=== PATIENT | male | born 1945 | race African-American/Black ===

== ENCOUNTER → 2017-02-06 | Outpatient (CLI) | payer BC ==
[2016-06-10 15:00] VITALS: BP 102/69
[~2017-02-06] MED LIST: AMIO200T PO; AMIO200T2 PO; ASPI-252 PO; ASPI81TA2 PO; ATORVASTATIN CA80 MG PO; Acetaminophen PO; CALC500T27 PO; CARV6.25 PO; CHOL2000 PO; CLOP75TA PO; FURO-69 PO; INSU100I27 SQ; LEVO500T38 PO; LITH300C PO; LITH300T3 PO; NAPR500T PO; NAPR500T3 PO; OMEG10005 PO; OMEP20CA9 PO; OMEP20TA PO; OXYC-323 PO; Oxycodone Hcl/Acetaminophen PO; POTA20TA12 PO; SIMV80TA3 PO; TAMS0.4C97 PO; TRAZ50TA15 PO
--- NOTE | 2017-02-06 15:28 | RAD ---
Exam: PA and lateral chest radiograph History: Shortness of air for 4-5 months. Comparison: 06/01/2016. Findings: Cardiomediastinal silhouette is within normal limits for size. Mild infiltrate is seen in the left lower lobe. No pleural effusion is seen. Median sternotomy wires are present. Impression: Mild left lower lobe infiltrate.
== END | disposition home or self-care (01) ==
LOC: RAD 12:32
PROVIDERS: ATTEND Internal Medicine Cardiovascular Disease
DX: R91.8 Other nonspecific abnormal finding of lung field (principal)
CPT/HCPCS: 71020

== ENCOUNTER → 2017-02-11 | Outpatient (CLI) | payer BC ==
[2016-06-10 15:00] VITALS: BP 102/69
== END | disposition home or self-care (01) ==
LOC: PF 09:55
PROVIDERS: ATTEND Internal Medicine Pulmonary Disease
DX: R06.02 Shortness of breath (principal)
CPT/HCPCS: 94060; 94729

== ENCOUNTER → 2017-03-28 | Day surgery (SDC) | payer BC ==
[~2017-03-28] MED LIST changes: +FLUT9.9S NS; +GLYCOPYRROLATE 1 MG/5 ML VIAL. ONE; +IV RINGERS,LACTATED 1000ML 1,000 ML IV SCH; +PHENYLEPHRINE in 0.9% NACL PF 1 MG/10 ML DISP.SYRIN. IV ONE; +PROPOFOL 20 ML IV ONE; +ePHEDrine PF IN SALINE 50 MG/5 ML DISP.SYRIN IV ONE; +fentaNYL PF VIAL 100 MCG/2 ML VIAL IV PRN
[2017-03-28 10:10] VITALS: BP 180/79
== END | disposition home or self-care (01) ==
LOC: ENDOS 08:05
PROVIDERS: ATTEND Internal Medicine Gastroenterology
DX: Z09 Encounter for follow-up examination after completed treatment for conditions other than malignant neoplasm (principal); Z86.010 Personal history of colon polyps; K64.0 First degree hemorrhoids; K57.30 Diverticulosis of large intestine without perforation or abscess without bleeding; K21.9 Gastro-esophageal reflux disease without esophagitis; I12.9 Hypertensive chronic kidney disease with stage 1 through stage 4 chronic kidney disease, or unspecified chronic kidney disease; M19.90 Unspecified osteoarthritis, unspecified site; E78.00 Pure hypercholesterolemia, unspecified; E11.22 Type 2 diabetes mellitus with diabetic chronic kidney disease; N18.3 Chronic kidney disease, stage 3 (moderate); Z83.3 Family history of diabetes mellitus; Z72.89 Other problems related to lifestyle; Z98.41 Cataract extraction status, right eye; Z98.42 Cataract extraction status, left eye
CPT/HCPCS: 45378; 82947; J2370; J2704; J3490; 82962

== ENCOUNTER → 2018-02-13 | Outpatient (CLI) | payer BC ==
[2018-02-13 15:46] LABS: ADD MAN DIFF? NO
[2018-02-13 15:59] LABS: BASO % 0 % (0-3); EOS # 0.1 x10^3/uL (0.0-0.7); EOS % 2 % (0-3); HEMATOCRIT 40.1 % (39.0-53.0); HEMOGLOBIN 12.8 g/dL (13.0-17.5); LYMPH # 2.2 x10^3/uL (1.0-4.8); LYMPH % 25 % (24-48); MEAN CORPUSCULAR HEMOGLOBIN 28 pg (25-35); MEAN CORPUSCULAR HGB CONC 32 g/dL (31-37); MEAN CORPUSCULAR VOLUME 88 fL (79-100); MONO # 0.5 x10^3/uL (0.0-1.1); MONO % 6 % (0-9); NEUT # 5.8 x10^3uL (1.8-7.7); NEUT % 67 % (31-73); PLATELET COUNT 124 x10^3/uL (140-400); RED BLOOD COUNT 4.55 x10^6/uL (4.30-5.70); RED CELL DISTRIBUTION WIDTH 15.6 % (11.5-14.5); WHITE BLOOD COUNT 8.6 x10^3/uL (4.0-11.0)
[2018-02-13 16:17] LABS: ALBUMIN 3.4 g/dL (3.4-5.0); ALBUMIN/GLOBULIN RATIO 0.9 (1.0-1.7); ALK PHOS 108 U/L (46-116); ALT (SGPT) 16 U/L (16-63); ANION GAP 9 (6-14); AST (SGOT) 12 U/L (15-37); BLOOD UREA NITROGEN 11 mg/dL (8-26); BUN/CREATININE RATIO 6 (6-20); CALCIUM 9.2 mg/dL (8.5-10.1); CARBON DIOXIDE 23 mmol/L (21-32); CHLORIDE 111 mmol/L (98-107); CHOLESTEROL 125 mg/dL (0-200); CREATININE 1.7 mg/dL (0.7-1.3); DIRECT BILIRUBIN 0.2 mg/dL (0.0-0.2); GFR 48.2; GLUCOSE 93 mg/dL (70-99); HDLC 35 mg/dL (40-60); LDLC 67 mg/dL (0-100); MAGNESIUM 1.8 mg/dL (1.8-2.4); NON-HDL CHOLESTEROL 90 mg/dL (0-129); POTASSIUM 3.9 mmol/L (3.5-5.1); SODIUM 143 mmol/L (136-145); TOTAL BILIRUBIN 0.9 mg/dL (0.2-1.0); TOTAL PROTEIN 7.2 g/dL (6.4-8.2); TRIGLYCERIDES 117 mg/dL (0-150); VLDLC 23 mg/dL (0-40)
[2018-02-13 16:20] LABS: CHOLESTEROL/HDL RATIO 3.6
[2018-02-13 17:39] LABS: OVALOCYTES OCC; PLT ESTIMATE DECREASED (ADEQUATE); POLYCHROMASIA SLIGHT
[2018-02-15 03:12] LABS: HEMOGLOBIN A1C 6.3 % (4.8-5.6)
== END | disposition home or self-care (01) ==
LOC: LAB 15:22
DX: I25.5 Ischemic cardiomyopathy (principal)
CPT/HCPCS: 36415; 80053; 80061; 80076; 83036; 83735; 85025

== ENCOUNTER → 2018-02-18 | Outpatient (CLI) | payer BC | END | disposition home or self-care (01) | LOC: ECHO 12:57 | DX: I25.10 Atherosclerotic heart disease of native coronary artery without angina pectoris (principal); I25.2 Old myocardial infarction | CPT/HCPCS: 93306 ==

== ENCOUNTER → 2018-03-24 | Outpatient (CLI) | payer BC ==
[2018-03-24 15:13] LABS: ADD MAN DIFF? NO
[2018-03-24 15:31] LABS: BASO % 0 % (0-3); EOS # 0.1 x10^3/uL (0.0-0.7); EOS % 2 % (0-3); HEMATOCRIT 39.6 % (39.0-53.0); HEMOGLOBIN 12.5 g/dL (13.0-17.5); LYMPH # 2.1 x10^3/uL (1.0-4.8); LYMPH % 31 % (24-48); MEAN CORPUSCULAR HEMOGLOBIN 28 pg (25-35); MEAN CORPUSCULAR HGB CONC 32 g/dL (31-37); MEAN CORPUSCULAR VOLUME 88 fL (79-100); MONO # 0.4 x10^3/uL (0.0-1.1); MONO % 6 % (0-9); NEUT # 4.3 x10^3uL (1.8-7.7); NEUT % 62 % (31-73); PLATELET COUNT 122 x10^3/uL (140-400); RED CELL DISTRIBUTION WIDTH 15.3 % (11.5-14.5); WHITE BLOOD COUNT 6.9 x10^3/uL (4.0-11.0)
[2018-03-24 16:00] LABS: % SAT IRON 29 % (15-34); IRON,SERUM 77 ug/dL (65-175)
[2018-03-24 16:09] LABS: ALBUMIN 3.5 g/dL (3.4-5.0); ANION GAP 7 (6-14); BLOOD UREA NITROGEN 11 mg/dL (8-26); CALCIUM 9.5 mg/dL (8.5-10.1); CARBON DIOXIDE 26 mmol/L (21-32); CHLORIDE 112 mmol/L (98-107); CREATININE 1.7 mg/dL (0.7-1.3); FERRITIN 54 ng/mL (26-388); GFR 48.2; GLUCOSE 117 mg/dL (70-99); PHOSPHORUS 3.4 mg/dL (2.6-4.7); SODIUM 145 mmol/L (136-145)
[2018-03-25 04:20] LABS: CALCIUM PTH 9.9 mg/dL (8.6-10.2); CREATININE PTH 1.59 mg/dL (0.76-1.27); PHOSPHORUS PTH 3.6 mg/dL (2.5-4.5); PTH INTACT 42 pg/mL (15-65); eGFR AFRICAN-AMER 49 (>59); eGFR NON AFRICAN-AMER 43 (>59)
== END | disposition home or self-care (01) ==
LOC: LAB 14:45
DX: I12.9 Hypertensive chronic kidney disease with stage 1 through stage 4 chronic kidney disease, or unspecified chronic kidney disease (principal); E11.22 Type 2 diabetes mellitus with diabetic chronic kidney disease; N18.3 Chronic kidney disease, stage 3 (moderate); N14.1 Nephropathy induced by other drugs, medicaments and biological substances; E21.3 Hyperparathyroidism, unspecified; D64.9 Anemia, unspecified; Z68.34 Body mass index [BMI] 34.0-34.9, adult
CPT/HCPCS: 36415; 80069; 82306; 82728; 83540; 83550; 83735; 83970; 85025

== ENCOUNTER 2019-07-14 16:10 | Emergency (ER) | payer BC ==
[~2019-07-14] VITALS: Ht 182.9 cm; Wt 109.3 kg
[~2019-07-14 16:10] MED LIST changes: -AMIO200T2 PO; +AMIO200T4 PO; +ASPI-630 PO; -ASPI81TA2 PO; -CALC500T27 PO; +CALC500T30 PO; -GLYCOPYRROLATE 1 MG/5 ML VIAL. ONE; -IV RINGERS,LACTATED 1000ML 1,000 ML IV SCH; -LEVO500T38 PO; +LEVO500T59 PO; +NAPR-514 PO; +NAPR-683 PO; -NAPR500T PO; -NAPR500T3 PO; +OMEP20CA10 PO; -OMEP20CA9 PO; -OMEP20TA PO; +OMEP20TA8 PO; -OXYC-323 PO; +OXYC1TAB15 PO; -PHENYLEPHRINE in 0.9% NACL PF 1 MG/10 ML DISP.SYRIN. IV ONE; -PROPOFOL 20 ML IV ONE; +SIMV80TA17 PO; -SIMV80TA3 PO; +TRAZ-118 PO; -TRAZ50TA15 PO; -ePHEDrine PF IN SALINE 50 MG/5 ML DISP.SYRIN IV ONE; -fentaNYL PF VIAL 100 MCG/2 ML VIAL IV PRN
[2019-07-14 16:20] VITALS: BP 138/64
--- NOTE | 2019-07-14 16:55 | RAD ---
PORTABLE CHEST 1V Clinical Indication: Chest pain after fall Comparison: Two-view chest February 06, 2017. Findings: Prior CABG. The cardiomediastinal silhouette is normal. Lungs are clear. There is no pneumothorax. No pleural effusion is appreciated. No acute bone abnormality. Degenerative arthropathy of the right shoulder. IMPRESSION: No acute cardiopulmonary process. Electronically signed by: Ryan Sheehan MD (07/14/2019 4:52 PM) [id number]
[2019-07-14 17:06] LABS: BASO % 1 % (0-3); EOS # 0.1 x10^3/uL (0.0-0.7); EOS % 1 % (0-3); HEMATOCRIT 37.4 % (39.0-53.0); HEMOGLOBIN 12.3 g/dL (13.0-17.5); LYMPH # 1.7 x10^3/uL (1.0-4.8); LYMPH % 19 % (24-48); MEAN CORPUSCULAR HEMOGLOBIN 30 pg (25-35); MEAN CORPUSCULAR HGB CONC 33 g/dL (31-37); MEAN CORPUSCULAR VOLUME 91 fL (79-100); MONO # 0.3 x10^3/uL (0.0-1.1); MONO % 4 % (0-9); NEUT # 6.6 x10^3/uL (1.8-7.7); NEUT % 76 % (31-73); PLATELET COUNT 131 x10^3/uL (140-400); RED BLOOD COUNT 4.13 x10^6/uL (4.30-5.70); RED CELL DISTRIBUTION WIDTH 15.5 % (11.5-14.5); WHITE BLOOD COUNT 8.7 x10^3/uL (4.0-11.0)
[2019-07-14 17:18] LABS: CALCIUM 9.5 mg/dL (8.5-10.1); CREATININE 2.3 mg/dL (0.7-1.3); GFR 33.9
[2019-07-14 17:22] LABS: ALBUMIN 3.6 g/dL (3.4-5.0); ALBUMIN/GLOBULIN RATIO 1.1 (1.0-1.7); MAGNESIUM 1.8 mg/dL (1.8-2.4); TOTAL BILIRUBIN 0.8 mg/dL (0.2-1.0); TOTAL PROTEIN 6.8 g/dL (6.4-8.2)
--- NOTE | 2019-07-14 17:29 | RAD ---
EXAM: Head CT without contrast; maxillofacial bone CT without contrast; cervical spine CT without contrast. HISTORY: Fall. Pain. Facial injury. TECHNIQUE: Computed tomographic images of the head, maxillofacial bones and cervical spine were obtained without contrast. *One or more of the following individualized dose reduction techniques were utilized for this examination: 1. Automated exposure control. 2. Adjustment of the mA and/or kV according to patient size. 3. Use of iterative reconstruction technique. COMPARISON: 06/01/2016. FINDINGS: Head: There is no evidence of acute or subacute intracranial hemorrhage. There is no mass effect or midline shift. There is no hydrocephalus. There is mild cerebral volume loss. There is subtle decreased attenuation within the cerebral white matter, likely due to chronic small vessel disease. The mastoid air cells are clear. No calvarial fracture is seen. There are metallic foreign bodies within the right temporal and anterior mastoid soft tissues, resulting in artifact limiting evaluation of these locations. Maxillofacial bones: There is an inferior right frontal scalp and superior lateral orbital soft tissue hematoma. No orbital fracture is seen. There is a small left maxillary sinus mucous retention cyst. The ostiomeatal units are patent. There is no significant nasal septal deviation. Cervical spine: There is mild anterolisthesis of C3 on C4 and C4 on C5, likely degenerative in etiology. There is degenerative endplate remodeling with disc space narrowing and osteophytosis primarily at C5-C6. There is multilevel facet arthropathy. No displaced fracture is seen. The combination of degenerative changes results in mild left foraminal stenosis at C2-C3 and mild left foraminal stenosis at C5-C6 . No severe stenosis is seen. IMPRESSION: 1. Right inferior frontal scalp and superior lateral periorbital soft tissue hematoma. No underlying fracture or acute intracranial finding is seen. 2. Mild cerebral volume loss and slight hypodensity within the cerebral white matter likely due to chronic small vessel disease. 3. Stable metallic foreign bodies within the right temporal and anterior mastoid soft tissues due to prior penetrating injury. 4. Multilevel degenerative change throughout the cervical spine, described in detail above. There is no evidence of acute cervical spine trauma. Electronically signed by: Radha Grigsby MD (07/14/2019 5:26 PM) [facility]
[2019-07-14 17:30] LABS: CREATINE KINASE 46 U/L (39-308)
--- NOTE | 2019-07-14 19:27 | PHYS DOC ---
Past Medical History Past Medical History: CAD, GERD, High Cholesterol, MA, Renal Disease, Vascular Disease, Other Additional Past Medical Histor: PTSD,STENTS PLACED IN BOTH LEGS, pleural effusion Past Surgical History: Coronary Bypass Surgery Additional Past Surgical Histo: stents placed in legs Alcohol Use: None Drug Use: None Adult General Chief Complaint Chief Complaint: MECHANICAL FALL HPI HPI Patient is a 73 year old male with history of MA, CAD, kidney disease, who presents to the ED today to be evaluated status post falling. Patient states he was walking on his driveway when he lost his footing and fell forward. Denies any loss of consciousness. Denies any pain anywhere specifically. He states his balance has been off for 3 years. He states he follows up with his own doctors for this. Review of Systems Review of Systems Constitutional: Denies fever or chills [] Eyes: Denies change in visual acuity, redness, or eye pain [] HENT: Denies nasal congestion or sore throat [] Respiratory: Denies cough or shortness of breath [] Cardiovascular: No additional information not addressed in HPI [] GI: Denies abdominal pain, nausea, vomiting, bloody stools or diarrhea [] : Denies dysuria or hematuria [] Musculoskeletal: Reports falling from standing. Denies back pain or joint pain [] Integument: Denies rash or skin lesions [] Neurologic: Reports forehead contusion. Denies headache, focal weakness or sensory changes [] All other systems were reviewed and found to be within normal limits, except as documented in this note. Allergies Allergies Allergies Coded Allergies Type Severity Reaction Last Updated Verified No Known Drug Allergies 03/28/17 No Physical Exam Physical Exam Constitutional: Well developed, well nourished, no acute distress, non-toxic appearance. [] HENT: Normocephalic, atraumatic, bilateral external ears normal, oropharynx moist, no oral exudates, nose normal. [] Eyes: PERRLA, EOMI, conjunctiva normal, no discharge. [] Neck: Normal range of motion, no tenderness, supple, no stridor. [] Cardiovascular:Heart rate regular rhythm, no murmur [] Lungs & Thorax: Bilateral breath sounds clear to auscultation [] Abdomen: Bowel sounds normal, soft, no tenderness, no masses, no pulsatile masses. [] Skin: Warm, dry, no erythema, no rash. [] Back: No tenderness, no CVA tenderness. [] Extremities: No tenderness, no cyanosis, no clubbing, ROM intact, no edema. [] Neurologic: Right forehead with an abrasion and mild contusion. Alert and oriented X 3, normal motor function, normal sensory function, no focal deficits noted. Cranial nerves II through XII intact Psychologic: Affect normal, judgement normal, mood normal. [] Current Patient Data Vital Signs Vital Signs Date Time Temp Pulse Resp B/P (MAP) Pulse Ox O2 Delivery O2 Flow Rate FiO2 07/14/19 16:20 97.5 102 20 138/64 (88) 94 Room Air 97.5 Lab Values Laboratory Tests Test 07/14/19 16:55 White Blood Count 8.7 x10^3/uL (4.0-11.0) Red Blood Count 4.13 x10^6/uL (4.30-5.70) L Hemoglobin 12.3 g/dL (13.0-17.5) L Hematocrit 37.4 % (39.0-53.0) L Mean Corpuscular Volume 91 fL (79-100) Mean Corpuscular Hemoglobin 30 pg (25-35) Mean Corpuscular Hemoglobin Concent 33 g/dL (31-37) Red Cell Distribution Width 15.5 % (11.5-14.5) H Platelet Count 131 x10^3/uL (140-400) L Neutrophils (%) (Auto) 76 % (31-73) H Lymphocytes (%) (Auto) 19 % (24-48) L Monocytes (%) (Auto) 4 % (0-9) Eosinophils (%) (Auto) 1 % (0-3) Basophils (%) (Auto) 1 % (0-3) Neutrophils # (Auto) 6.6 x10^3/uL (1.8-7.7) Lymphocytes # (Auto) 1.7 x10^3/uL (1.0-4.8) Monocytes # (Auto) 0.3 x10^3/uL (0.0-1.1) Eosinophils # (Auto) 0.1 x10^3/uL (0.0-0.7) Basophils # (Auto) 0.0 x10^3/uL (0.0-0.2) Sodium Level 144 mmol/L (136-145) Potassium Level 4.0 mmol/L (3.5-5.1) Chloride Level 108 mmol/L (98-107) H Carbon Dioxide Level 23 mmol/L (21-32) Anion Gap 13 (6-14) Blood Urea Nitrogen 11 mg/dL (8-26) Creatinine 2.3 mg/dL (0.7-1.3) H Estimated GFR (Cockcroft-Gault) 33.9 BUN/Creatinine Ratio 5 (6-20) L Glucose Level 207 mg/dL (70-99) H Calcium Level 9.5 mg/dL (8.5-10.1) Magnesium Level 1.8 mg/dL (1.8-2.4) Total Bilirubin 0.8 mg/dL (0.2-1.0) Aspartate Amino Transferase (AST) 12 U/L (15-37) L Alanine Aminotransferase (ALT) 12 U/L (16-63) L Alkaline Phosphatase 92 U/L (46-116) Creatine Kinase 46 U/L (39-308) Creatine Kinase MB (Mass) 0.7 ng/mL (0.0-3.6) Creatine Kinase MB Relative Index % (0-4) Troponin I Quantitative 0.018 ng/mL (0.000-0.055) KA-Gzs-W-Type Natriuretic Peptide 144 pg/mL (0-124) H Total Protein 6.8 g/dL (6.4-8.2) Albumin 3.6 g/dL (3.4-5.0) Albumin/Globulin Ratio 1.1 (1.0-1.7) Thyroid Stimulating Hormone (TSH) 0.991 uIU/mL (0.358-3.74) Laboratory Tests 07/14/19 16:55 Laboratory Tests 07/14/19 16:55 EKG EKG 1633Interpreted by Dr. Shafer sinus rhythm HR 100 no STEMI[] Radiology/Procedures Radiology/Procedures []PROCEDURE: PORTABLE CHEST 1V PORTABLE CHEST 1V Clinical Indication: Chest pain after fall Comparison: Two-view chest February 06, 2017. Findings: Prior CABG. The cardiomediastinal silhouette is normal. Lungs are clear. There is no pneumothorax. No pleural effusion is appreciated. No acute bone abnormality. Degenerative arthropathy of the right shoulder. IMPRESSION: No acute cardiopulmonary process. Electronically signed by: Ryan Sheehan MD (07/14/2019 4:52 PM) [id number] DICTATED and SIGNED BY: RYAN SHEEHAN MD DATE: 07/14/19 1652 PROCEDURE: CT HEAD AND CERVICAL SPINE WO EXAM: Head CT without contrast; maxillofacial bone CT without contrast; cervical spine CT without contrast. HISTORY: Fall. Pain. Facial injury. TECHNIQUE: Computed tomographic images of the head, maxillofacial bones and cervical spine were obtained without contrast. *One or more of the following individualized dose reduction techniques were utilized for this examination: 1. Automated exposure control. 2. Adjustment of the mA and/or kV according to patient size. 3. Use of iterative reconstruction technique. COMPARISON: 06/01/2016. FINDINGS: Head: There is no evidence of acute or subacute intracranial hemorrhage. There is no mass effect or midline shift. There is no hydrocephalus. There is mild cerebral volume loss. There is subtle decreased attenuation within the cerebral white matter, likely due to chronic small vessel disease. The mastoid air cells are clear. No calvarial fracture is seen. There are metallic foreign bodies within the right temporal and anterior mastoid soft tissues, resulting in artifact limiting evaluation of these locations. Maxillofacial bones: There is an inferior right frontal scalp and superior lateral orbital soft tissue hematoma. No orbital fracture is seen. There is a small left maxillary sinus mucous retention cyst. The ostiomeatal units are patent. There is no significant nasal septal deviation. Cervical spine: There is mild anterolisthesis of C3 on C4 and C4 on C5, likely degenerative in etiology. There is degenerative endplate remodeling with disc space narrowing and osteophytosis primarily at C5-C6. There is multilevel facet arthropathy. No displaced fracture is seen. The combination of degenerative changes results in mild left foraminal stenosis at C2-C3 and mild left foraminal stenosis at C5-C6 . No severe stenosis is seen. IMPRESSION: 1. Right inferior frontal scalp and superior lateral periorbital soft tissue hematoma. No underlying fracture or acute intracranial finding is seen. 2. Mild cerebral volume loss and slight hypodensity within the cerebral white matter likely due to chronic small vessel disease. 3. Stable metallic foreign bodies within the right temporal and anterior mastoid soft tissues due to prior penetrating injury. 4. Multilevel degenerative change throughout the cervical spine, described in detail above. There is no evidence of acute cervical spine trauma. Electronically signed by: Radha Forrest MD (07/14/2019 5:26 PM) [facility] DICTATED and SIGNED BY: RADHA FORREST MD DATE: 07/14/19 172 Course & Med Decision Making Course & Med Decision Making Pertinent Labs and Imaging studies reviewed. (See chart for details) This is a 73-year-old male patient who presents to the ED today to be evaluated after falling, no loss of consciousness. CT of the head and cervical spine as well as maxillofacial are negative. CBC with no acute findings, CMP noted for creatinine of 2.3, BUN of 11, patient states he has history of chronic renal insufficiency and follows up with a kidney doctor. They state he has an appointment next week. Discharged to home. Dragon Disclaimer Dragon Disclaimer This electronic medical record was generated, in whole or in part, using a voice recognition dictation system. Departure Departure Impression: Primary Impression: Fall from standing Additional Impressions: Forehead contusion Chronic renal failure Disposition: HOME, SELF-CARE Condition: STABLE Referrals: Acosta DUTTON MD (PCP) Follow up in the course of this week or next week Patient Instructions: Contusion, [id number] Additional Instructions: You were evaluated in the emergency room after falling. Please follow-up with y our primary care doctor in the next 1-2 weeks. Try to ice the affected area on the forehead. Apply Neosporin to the abrasions on the forehead. Problem Qualifiers Primary Impression: Fall from standing Encounter type: initial encounter Qualified Codes: W19.XXXA - Unspecified fall, initial encounter Additional Impressions: Forehead contusion Encounter type: initial encounter Qualified Codes: S00.83XA - Contusion of other part of head, initial encounter Chronic renal failure Chronic kidney disease stage: unspecified stage Qualified Codes: N18.9 - Chronic kidney disease, unspecified VENU OTOOLE WEIGHING STATION OPERATOR Jul 14, 2019 19:27
--- NOTE | 2019-07-15 05:41 | EKG ---
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
== END 2019-07-14 19:50 | disposition home or self-care (01) ==
LOC: ER 16:10
DX: S00.83XA Contusion of other part of head, initial encounter (principal); N18.9 Chronic kidney disease, unspecified; K21.9 Gastro-esophageal reflux disease without esophagitis; E78.00 Pure hypercholesterolemia, unspecified; I25.10 Atherosclerotic heart disease of native coronary artery without angina pectoris; I25.2 Old myocardial infarction; Z95.5 Presence of coronary angioplasty implant and graft; W18.39XA Other fall on same level, initial encounter; Y93.01 Activity, walking, marching and hiking; Y92.89 Other specified places as the place of occurrence of the external cause; Y99.8 Other external cause status
CPT/HCPCS: 36415; 70450; 70486; 71045; 72125; 80053; 82553; 83735; 83880; 84443; 84484; 85025; 93005; 99285-25

== ENCOUNTER → 2020-04-27 | Outpatient (CLI) | payer BC ==
[~2020-04-27] MED LIST changes: -OMEP20CA10 PO; +OMEP20CA16 PO
--- NOTE | 2020-04-27 12:56 | RAD ---
EXAM: Head CT without contrast. HISTORY: Memory changes. TECHNIQUE: Computed tomographic images of the head were obtained without contrast. *One or more of the following individualized dose reduction techniques were utilized for this examination: 1. Automated exposure control. 2. Adjustment of the mA and/or kV according to patient size. 3. Use of iterative reconstruction technique. COMPARISON: 07/14/2019. FINDINGS: There is no acute or subacute extra-axial or intraparenchymal hemorrhage. There is no mass effect or midline shift. There is no hydrocephalus. There are areas of decreased attenuation within the cerebral white matter, nonspecific and likely related to chronic small vessel disease. There are metallic foreign bodies resulting in artifact along the right temporal and preauricular region. The orbits are unremarkable. There is severe left maxillary sinus mucosal thickening with mucous retention cysts. The mastoid air cells are clear. There is no suspicious calvarial lesion. IMPRESSION: 1. No acute intracranial finding. 2. Bilateral cerebral white matter changes, likely due to chronic small vessel disease. 3. Metallic foreign bodies within the right temporal and preauricular soft tissues. Electronically signed by: Radha Grigsby MD (04/27/2020 12:53 PM) [id number]
== END ==
LOC: CT 12:11
PROVIDERS: ATTEND Family Medicine
DX: R41.3 Other amnesia (principal); I67.9 Cerebrovascular disease, unspecified
CPT/HCPCS: 70450

== ENCOUNTER 2020-06-26 12:54 | Inpatient (IN) | payer BC ==
[~2020-06-26] VITALS: Ht 177.8 cm; Wt 95.4 kg
[~2020-06-26 12:54] MED LIST changes: +FAMO20TA5 PO; +FURO20TA3 PO
--- NOTE | 2020-06-26 13:13 | NUR ---
SW contacted by daughter Gayla ([phone]) who stated pt sent to the ED by nurse. SW familiar with this pt as pt discharged last week with 24 hour care from family as well as [facility] and [facility] for feeding tube management. Pt's dtr would like for pt to go to [facility] acute rehab after this admission. SW completed Patient Choice of Vendor form. SW thanked pt's dtr for calling with and update and SW available to assist as needed.
--- NOTE | 2020-06-26 13:21 | EKG ---
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
[2020-06-26 13:32] LABS: BASO % 0 % (0-3); EOS # 0.1 x10^3/uL (0.0-0.7); EOS % 1 % (0-3); HEMOGLOBIN 11.5 g/dL (13.0-17.5); LYMPH # 1.4 x10^3/uL (1.0-4.8); LYMPH % 21 % (24-48); MEAN CORPUSCULAR HEMOGLOBIN 30 pg (25-35); MEAN CORPUSCULAR HGB CONC 32 g/dL (31-37); MEAN CORPUSCULAR VOLUME 93 fL (79-100); MONO # 0.5 x10^3/uL (0.0-1.1); MONO % 7 % (0-9); NEUT # 4.7 x10^3/uL (1.8-7.7); NEUT % 71 % (31-73); PLATELET COUNT 95 x10^3/uL (140-400); RED BLOOD COUNT 3.88 x10^6/uL (4.30-5.70); RED CELL DISTRIBUTION WIDTH 17.2 % (11.5-14.5); WHITE BLOOD COUNT 6.6 x10^3/uL (4.0-11.0)
--- NOTE | 2020-06-26 13:37 | RAD ---
Chest one view Comparison June 18, 2020 HISTORY: AMS FINDINGS: Right arm PICC line has been removed. The lung apices are incompletely visualized. No acute abnormality in the lungs visualized. No effusion or pneumothorax. Cerclage wires of median sternotomy are seen. Degenerative changes in both shoulders are again seen. IMPRESSION: No acute abnormality noted Electronically signed by: Gallo Alston MD (06/26/2020 1:34 PM) [id number]
--- NOTE | 2020-06-26 13:53 | PHYS DOC ---
Past Medical History Past Medical History: CAD, Dementia, GERD, High Cholesterol, DE, Renal Disease, Vascular Disease, Other Additional Past Medical Histor: PTSD,STENTS PLACED IN BOTH LEGS, pleural effusion Past Surgical History: Coronary Bypass Surgery, Other Additional Past Surgical Histo: stents placed in legs Smoking Status: Former Smoker Alcohol Use: None Drug Use: None General Adult EDM: Chief Complaint: ALTERED MENTAL STATUS HPI: HPI: 74 yo M PMH severe alzheimers dementia presents to the ed from home with concern for peg tube dislodgement-was noticed last night when pt fell out of bed and was found on the ground-no one witnessed removal of peg tube that was placed by Dr. Franco 3 days ago. Was recently discharged from the hospital 2 days ago after admission for madelin and hypernatremia. Pt cannot care for himself and lives with at home. ROS: Unobtainable given pts' severe dementia. Heart Score: Risk Factors: Risk Factors: DM, Current or recent (<one month) smoker, HTN, HLP, family history of CAD, obesity. Risk Scores: Score 0 - 3: 2.5% MACE over next 6 weeks - Discharge Home Score 4 - 6: 20.3% MACE over next 6 weeks - Admit for Clinical Observation Score 7 - 10: 72.7% MACE over next 6 weeks - Early Invasive Strategies Allergies: Allergies: Allergies Coded Allergies Type Severity Reaction Last Updated Verified No Known Drug Allergies 06/23/20 No Physical Exam: PE: Constitutional: in no distress, minimal speech HENT: Normocephalic, atraumatic, oropharynx dry, Eyes: EOMI, conjunctiva normal, no discharge. [] Neck: Normal range of motion, no tenderness, supple, no stridor. [] Cardiovascular:Heart rate regular rhythm, no murmur [] Lungs & Thorax: Bilateral breath sounds clear to auscultation [] Abdomen: Bowel sounds normal, soft, no tenderness, PEG tube not intact, some dark secretions, no peritoneal abdomen, no masses, no pulsatile masses. [] Skin: Warm, dry, no erythema, no rash. [] Back: No tenderness, Extremities: No tenderness, no cyanosis, no clubbing, Neurologic: normal sensory function, no focal deficits noted. [] Current Patient Data: Labs: Laboratory Tests Test 06/26/20 13:10 White Blood Count 6.6 x10^3/uL (4.0-11.0) Red Blood Count 3.88 x10^6/uL (4.30-5.70) L Hemoglobin 11.5 g/dL (13.0-17.5) L Hematocrit 36.0 % (39.0-53.0) L Mean Corpuscular Volume 93 fL (79-100) Mean Corpuscular Hemoglobin 30 pg (25-35) Mean Corpuscular Hemoglobin Concent 32 g/dL (31-37) Red Cell Distribution Width 17.2 % (11.5-14.5) H Platelet Count 95 x10^3/uL (140-400) L Neutrophils (%) (Auto) 71 % (31-73) Lymphocytes (%) (Auto) 21 % (24-48) L Monocytes (%) (Auto) 7 % (0-9) Eosinophils (%) (Auto) 1 % (0-3) Basophils (%) (Auto) 0 % (0-3) Neutrophils # (Auto) 4.7 x10^3/uL (1.8-7.7) Lymphocytes # (Auto) 1.4 x10^3/uL (1.0-4.8) Monocytes # (Auto) 0.5 x10^3/uL (0.0-1.1) Eosinophils # (Auto) 0.1 x10^3/uL (0.0-0.7) Basophils # (Auto) 0.0 x10^3/uL (0.0-0.2) Platelet Estimate Pending Laboratory Tests 06/26/20 13:10 Vital Signs: Vital Signs Date Time Temp Pulse Resp B/P (MAP) Pulse Ox O2 Delivery O2 Flow Rate FiO2 06/26/20 12:54 99.1 89 16 146/85 (105) 97 Room Air 99.1 EKG: EKG: Sinus rhythm at 88 bpm, no axis deviation, normal intervals,, T wave inversion aVL, no ST elevations or ST depressions Radiology/Procedures: Radiology/Procedures: IMAGING REPORT Signed PATIENT: SHEKHAR DENISE JACCOUNT: [id number] : 1945 LOCATION: ER AGE: 74 SEX: M EXAM STATUS: REG ER ORD. PHYSICIAN: NORBERTO BEATTY DO REASON: ams PROCEDURE: CT HEAD WO CONTRAST CT HEAD INDICATION: Altered mental status COMPARISON: 06/16/2020 Exposure: One or more of the following individualized dose reduction techniques were utilized for this examination: 1. Automated exposure control 2. Adjustment of the mA and/or kV according to patient size 3. Use of iterative reconstruction technique TECHNIQUE: 5 mm contiguous axial images were obtained from the skull base to the vertex in both bone and soft tissue algorithm. FINDINGS: Mild bilateral periventricular white matter hypodensities likely chronic small vessel ischemic disease. Metallic densities identified in the right temporal region similar to prior exam. No evidence of acute intracranial hemorrhage. No extra-axial fluid collections. No mass effect or midline shift. Ventricular size is appropriate. Basal cisterns are patent. No fractures identified.Chang-white differentiation is preserved.Globes and orbits are within normal limits. Paranasal sinuses and mastoid air cells are clear. IMPRESSION: No acute intracranial findings Electronically signed by: Kun Meza MD (06/26/2020 2:27 PM) [id number] DICTATED and SIGNED BY: KUN MEZA MD DATE: 06/26/20 [id number] IMAGING REPORT Signed PATIENT: SHEKHAR DENISE JACCOUNT: [id number] : 1945 LOCATION: ER AGE: 74 SEX: M EXAM STATUS: REG ER ORD. PHYSICIAN: NORBERTO BEATTY DO REASON: ams PROCEDURE: PORTABLE CHEST 1V Chest one view Comparison June 18, 2020 HISTORY: AMS FINDINGS: Right arm PICC line has been removed. The lung apices are incompletely visualized. No acute abnormality in the lungs visualized. No effusion or pneumothorax. Cerclage wires of median sternotomy are seen. Degenerative changes in both shoulders are again seen. IMPRESSION: No acute abnormality noted Electronically signed by: Twan Owens MD (06/26/2020 1:34 PM) [id number] DICTATED and SIGNED BY: TWAN OWENS MD DATE: 06/26/20 1334 IMAGING REPORT Signed PATIENT: SHEKHAR DENISE JACCOUNT: [id number] : 1945 LOCATION: ER AGE: 74 SEX: M EXAM STATUS: REG ER ORD. PHYSICIAN: NORBERTO BEATTY DO REASON: pulled peg tube out PROCEDURE: CT ABDOMEN PELVIS WO CONTRAST EXAM: CT Abdomen and Pelvis without IV contrast INDICATION: Reason: pulled peg tube out / Spl. Instructions: / History: TECHNIQUE: Multi-detector row CT images were acquired from the lung bases through the abdomen and pelvis without the use of IV contrast. Sagittal and coronal images were acquired from the transaxial data. All CT scans performed at this facility utilize dose optimization techniques as appropriate to the exam, including the following: Automated exposure control and adjustment of the mA and/or KV according to patient size (this includes techniques or standardized protocols for targeted exams where dose is indication/reason for exam). ORAL CONTRAST: None COMPARISON: 06/16/[address] without IV contrast. FINDINGS: The absence of IV contrast limits evaluation of soft tissue pathology. LOWER CHEST: Unremarkable LIVER: Unremarkable BILIARY SYSTEM: Gallbladder is unremarkable. Bile ducts are not dilated. PANCREAS: Unremarkable SPLEEN: Unremarkable ADRENALS: Unremarkable KIDNEYS & URETERS: Unremarkable BLADDER: Unremarkable REPRODUCTIVE ORGANS: Unremarkable GASTROINTESTINAL: No evidence of bowel obstruction, perforation or acute inflammation with extensive colonic diverticulosis is again apparent as described previously. The appendix is normal. MESENTERY/PERITONEUM/RETROPERITONEUM: Unremarkable VASCULAR: Left common iliac artery stent. LYMPH NODES: No adenopathy OSSEOUS & SOFT TISSUES: No acute osseous abnormality noted. Sternotomy wires incidentally noted. There is a defect in the skin surface and subcutaneous fat in the left upper quadrant abdomen superficial to the gastric body which abuts the peritoneal lining. There is also mild thickening of the intervening left rectus abdominis muscle. IMPRESSION: Residual tract of a percutaneous gastrostomy tube with wall thickening of the ipsilateral rectus abdominous muscle. The stomach may be adherent to the peritoneal lining along the tract as it does not layer dependently as it previously did pre-PEG tube placement. No free intraperitoneal air or evidence of hemoperitoneum. Electronically signed by: Mustapha Couch MD (06/26/2020 3:16 PM) [id number] DICTATED and SIGNED BY: MUSTAPHA COUCH MD DATE: 06/26/20 1516 Course & Med Decision Making: Course & Med Decision Making Pertinent Labs and Imaging studies reviewed. (See chart for details) Concern for dehydration with peg tube removed. Labs with hypernatremia and renal insufficiency. D/w GI - recommends surgical consultation, abx and admission, to discuss hospice vs LTC facility. Daughter and agree with this plan, pt was stable at time of admission. Dragon Disclaimer: Dragon Disclaimer: This electronic medical record was generated, in whole or in part, using a voice recognition dictation system. Departure Departure Impression: Primary Impression: PEG tube malfunction Additional Impressions: Alzheimer's dementia Hypernatremia CKD (chronic kidney disease) Anemia Disposition: ADMITTED INPATIENT Admitting Physician: MARY KATE (Dr. Gates) Condition: STABLE Referrals: Acosta DUTTON MD (PCP) Justicifation of Admission Dx: Justifications for Admission: Justification of Admission Dx: Yes Chronic Renal Failure: Intravenous Infusions (post surgical complication) NORBERTO BEATTY DO Jun 26, 2020 13:53
[2020-06-26 13:56] LABS: BILIRUBIN,URINE NEGATIVE (NEG); CLARITY,URINE CLEAR; COLOR,URINE YELLOW; NITRITE,URINE NEGATIVE (NEG); PROTEIN,URINE 30 mg/dL (NEG-TRACE)
[2020-06-26 14:01] LABS: ALBUMIN 2.7 g/dL (3.4-5.0); ALBUMIN/GLOBULIN RATIO 0.6 (1.0-1.7); CALCIUM 9.8 mg/dL (8.5-10.1); CREATININE 2.7 mg/dL (0.7-1.3); GFR 28.1; MAGNESIUM 2.4 mg/dL (1.8-2.4); POTASSIUM 4.3 mmol/L (3.5-5.1); TOTAL BILIRUBIN 0.6 mg/dL (0.2-1.0)
[2020-06-26 14:12] LABS: BACTERIA,URINE FEW /HPF (0-FEW); RBC,URINE 0 /HPF (0-2); SQUAMOUS EPITHELIAL CELL,UR MOD /LPF
[2020-06-26 14:13] LABS: AMORPHOUS SEDIMENT,UR PRESENT /HPF; YEAST,URINE PRESENT /HPF
[2020-06-26 14:28] LABS: PLT ESTIMATE DECREASED (ADEQUATE)
[2020-06-26 14:29] LABS: ANISOCYTOSIS SLIGHT
--- NOTE | 2020-06-26 14:30 | RAD ---
CT HEAD INDICATION: Altered mental status COMPARISON: 06/16/2020 Exposure: One or more of the following individualized dose reduction techniques were utilized for this examination: 1. Automated exposure control 2. Adjustment of the mA and/or kV according to patient size 3. Use of iterative reconstruction technique TECHNIQUE: 5 mm contiguous axial images were obtained from the skull base to the vertex in both bone and soft tissue algorithm. FINDINGS: Mild bilateral periventricular white matter hypodensities likely chronic small vessel ischemic disease. Metallic densities identified in the right temporal region similar to prior exam. No evidence of acute intracranial hemorrhage. No extra-axial fluid collections. No mass effect or midline shift. Ventricular size is appropriate. Basal cisterns are patent. No fractures identified.Chang-white differentiation is preserved.Globes and orbits are within normal limits. Paranasal sinuses and mastoid air cells are clear. IMPRESSION: No acute intracranial findings Electronically signed by: Kun Meza MD (06/26/2020 2:27 PM) [id number]
[2020-06-26] MEDS ORDERED: PIPERACILLIN/TAZOBACTAM 4.5 GM in IV NORMAL SALINE 100ML 100 ML IV ONE (14:45)
--- NOTE | 2020-06-26 15:19 | RAD ---
EXAM: CT Abdomen and Pelvis without IV contrast INDICATION: Reason: pulled peg tube out / Spl. Instructions: / History: TECHNIQUE: Multi-detector row CT images were acquired from the lung bases through the abdomen and pelvis without the use of IV contrast. Sagittal and coronal images were acquired from the transaxial data. All CT scans performed at this facility utilize dose optimization techniques as appropriate to the exam, including the following: Automated exposure control and adjustment of the mA and/or KV according to patient size (this includes techniques or standardized protocols for targeted exams where dose is indication/reason for exam). ORAL CONTRAST: None COMPARISON: 06/16/[address] without IV contrast. FINDINGS: The absence of IV contrast limits evaluation of soft tissue pathology. LOWER CHEST: Unremarkable LIVER: Unremarkable BILIARY SYSTEM: Gallbladder is unremarkable. Bile ducts are not dilated. PANCREAS: Unremarkable SPLEEN: Unremarkable ADRENALS: Unremarkable KIDNEYS & URETERS: Unremarkable BLADDER: Unremarkable REPRODUCTIVE ORGANS: Unremarkable GASTROINTESTINAL: No evidence of bowel obstruction, perforation or acute inflammation with extensive colonic diverticulosis is again apparent as described previously. The appendix is normal. MESENTERY/PERITONEUM/RETROPERITONEUM: Unremarkable VASCULAR: Left common iliac artery stent. LYMPH NODES: No adenopathy OSSEOUS & SOFT TISSUES: No acute osseous abnormality noted. Sternotomy wires incidentally noted. There is a defect in the skin surface and subcutaneous fat in the left upper quadrant abdomen superficial to the gastric body which abuts the peritoneal lining. There is also mild thickening of the intervening left rectus abdominis muscle. IMPRESSION: Residual tract of a percutaneous gastrostomy tube with wall thickening of the ipsilateral rectus abdominous muscle. The stomach may be adherent to the peritoneal lining along the tract as it does not layer dependently as it previously did pre-PEG tube placement. No free intraperitoneal air or evidence of hemoperitoneum. Electronically signed by: Faby Morgan MD (06/26/2020 3:16 PM) [id number]
--- NOTE | 2020-06-26 16:02 | PDOC ---
Date of Service: DATE: 06/26/20 TIME: 15:48 Subjective: Subjective: Please see GI consult from 06/21/20. PEG placed for oropharyngeal dysphagia and dementia on 06/23/20 after family consent (I spoke w/ daughter Mildred). Discharged after GI rounds on 06/24/20 - per social work note w/ 24 hr family care, home health, and feeding tube management per Tati. To ER today - per summary and d/w ER staff, family reports AMS and "pulling at G tube" - pt arrived in ED via EMS w/o PEG tube, timing of removal unclear. Unable to obtain meaningful history from pt. Objective: Vital Signs: Vital Signs Date Time Temp Pulse Resp B/P (MAP) Pulse Ox O2 Delivery O2 Flow Rate FiO2 06/26/20 14:30 92 18 100 06/26/20 12:54 99.1 146/85 (105) Room Air 99.1 Labs: Laboratory Tests Test 06/26/20 13:10 06/26/20 13:12 06/26/20 13:39 White Blood Count 6.6 x10^3/uL Red Blood Count 3.88 x10^6/uL Hemoglobin 11.5 g/dL Hematocrit 36.0 % Mean Corpuscular Volume 93 fL Mean Corpuscular Hemoglobin 30 pg Mean Corpuscular Hemoglobin Concent 32 g/dL Red Cell Distribution Width 17.2 % Platelet Count 95 x10^3/uL Neutrophils (%) (Auto) 71 % Lymphocytes (%) (Auto) 21 % Monocytes (%) (Auto) 7 % Eosinophils (%) (Auto) 1 % Basophils (%) (Auto) 0 % Neutrophils # (Auto) 4.7 x10^3/uL Lymphocytes # (Auto) 1.4 x10^3/uL Monocytes # (Auto) 0.5 x10^3/uL Eosinophils # (Auto) 0.1 x10^3/uL Basophils # (Auto) 0.0 x10^3/uL Platelet Estimate Decreased Large Platelets Present Anisocytosis Slight Sodium Level 161 mmol/L Potassium Level 4.3 mmol/L Chloride Level 123 mmol/L Carbon Dioxide Level 30 mmol/L Anion Gap 8 Blood Urea Nitrogen 26 mg/dL Creatinine 2.7 mg/dL Estimated GFR (Cockcroft-Gault) 28.1 BUN/Creatinine Ratio 10 Glucose Level 319 mg/dL Lactic Acid Level 1.5 mmol/L Calcium Level 9.8 mg/dL Magnesium Level 2.4 mg/dL Total Bilirubin 0.6 mg/dL Aspartate Amino Transf (AST/SGOT) 18 U/L Alanine Aminotransferase (ALT/SGPT) 37 U/L Alkaline Phosphatase 70 U/L Creatine Kinase 139 U/L Troponin I Quantitative < 0.017 ng/mL Total Protein 7.0 g/dL Albumin 2.7 g/dL Albumin/Globulin Ratio 0.6 Urine Collection Type Unknown Urine Color Yellow Urine Clarity Clear Urine pH 8.0 Urine Specific [place] 1.015 Urine Protein 30 mg/dL Urine Glucose (UA) 250 mg/dL Urine Ketones (Stick) Negative mg/dL Urine Blood Negative Urine Nitrite Negative Urine Bilirubin Negative Urine Urobilinogen Dipstick 1.0 mg/dL Urine Leukocyte Esterase Small Urine RBC 0 /HPF Urine WBC 1-4 /HPF Urine Squamous Epithelial Cells Mod /LPF Urine Amorphous Sediment Present /HPF Urine Bacteria Few /HPF Urine Mucus Slight /LPF Urine Yeast Present /HPF Imaging: EGD w/ PEG 06/23/20 Pre-op dx Oropharyngeal dysphagia Post-op dx gastritis S/p 20 FR Bard PEG placement Plan commence feedings later today with free water supplements Head CT 06/26 IMPRESSION: No acute intracranial findings CXR 06/26 IMPRESSION: No acute abnormality noted. CT A/P 06/26 IMPRESSION: Residual tract of a percutaneous gastrostomy tube with wall thickening of the ipsilateral rectus abdominous muscle. The stomach may be adherent to the peritoneal lining along the tract as it does not layer dependently as it previously did pre-PEG tube placement. No free intraperitoneal air or evidence of hemoperitoneum. PE: GEN: NAD, appears chronically ill HEENT: Atraumatic LUNGS: diminished HEART: RRR ABD: BS+, soft, PEG site upper abdomen - dressed per ER staff EXTREMITY: No edema SKIN: No rashes, no jaundice NEURO/PSYCH: lethargic, does respond when I say hello - speech difficult to understand (same as last week) A/P: Dementia, dysphagia, dislodged PEG (which was placed 06/23/20) MAIRA, hypernatremia, chronic anemia (stable), thrombocytopenia H/o GERD CRC screen - UTD (2016) Diverticulosis H/o C Diff COVID negative 06/17/20 -- Dr. Franco spoke w/ ER physician - recommends surgical G tube placement or alternatively Hospice discussion. Justicifation of Admission Dx: Justifications for Admission: Justification of Admission Dx: Yes RIAN PARRISH Jun 26, 2020 16:02
[2020-06-26] MEDS ORDERED: PANTOPRAZOLE IV PUSH 40 MG VIAL. IVP SCH (16:30)
--- NOTE | 2020-06-26 17:43 | PDOC1 ---
History and Physical Date of Service: DOS: DATE: 06/26/20 TIME: 17:38 Chief Complaint: Chief Complain: Dislodged PEG tube History of Present Illness: HPI: Patient is a 74-year-old male with past medical history of CABG, severe dementia, GERD, dyslipidemia, CKD, vascular disease, recent PEG tube placement on 06/21/2020 who comes to the ED because he recently pulled out his PEG tube. Daughter states that the PEG tube was leaking and they had to remove the abdominal binder. Moments later when they came back to try to feed him or given his medications through the PEG tube they realized that the PEG tube was already in his hand. Patient was recently discharged from the hospital after the PEG tube was placed. All of the history was obtained from the daughter and the who lives with the patient. Nursing facility options were discussed with the family at the last admission however they did not want the patient to go to a facility at that time. There was also no discussion for palliative care either. At that time, discussion was made to prolong life at that time and therefore a PEG tube was placed. Daughter at bedside states that the patient is fairly close to his baseline however he appears to be fairly weak. Patient is able to respond with one-word responses. Patient is alert and awake and oriented x1. Patient is not able to provide any parts of his history. Family meeting was held outside patient's room with and daughter. At this point, states that most of the patient's condition happened so quickly that the family did not have time to discuss hospice options or palliative care route. understands that the patient's condition is very severe and he has very poor prognosis. It was discussed in detail whether she should choose options for quality of life versus life prolonging measurements. At this time, family will continue to have discussions amongst himself to decide further planning for the patient. Past Medical/Surgical History: PMH/PSH: Past Medical History: CAD, severe Dementia, GERD, High Cholesterol, [place], Renal Disease, Vascular Disease, PTSD Past Surgical History: Coronary Bypass Surgery, Bilateral stents placed in legs Allergies: Allergies: Coded Allergies: No Known Drug Allergies (Unverified , 06/23/20) Family History: Family History: Unable to obtain Social History: Social History: Smoking Status: Former Smoker Alcohol Use: None Drug Use: None Current Medications: Current Medications Current Medications Piperacillin Sod/ Tazobactam Sod 4.5 gm/Sodium Chloride 100 ml @ 200 mls/hr 1X ONCE IV Last administered on 06/26/20at 15:09; Start 06/26/20 at 14:45; Stop 06/26/20 at 15:14; Status DC Pantoprazole Sodium (PROTONIX VIAL for IV PUSH) 40 mg DAILY IVP Last administered on 06/26/20at 16:58; Start 06/26/20 at 16:30 Active Scripts Active [Acetaminophen] 500 MG Tablet 500 Mg PO PRN Q6HRS PRN Coreg (Carvedilol) 6.25 Mg Tablet 6.25 Mg PO BIDWMEALS Reported Famotidine 20 Mg Tablet 20 Mg PO BIDAC Levemir Flextouch (Insulin Detemir) 100 Unit/1 Ml Insuln.pen 42 Unit SQ TIDAC Flonase Allergy Relief (Fluticasone Propionate) 9.9 Ml [place].susp 2 Sprays NS DAILY Aspirin 81 Mg Tab.chew 1 Tab PO DAILY Atorvastatin Calcium 80 Mg Tablet 1 Tab PO HS Calcium (Calcium Carbonate) 500 Mg Tablet 500 Mg PO BID92 Vitamin D (Cholecalciferol (Vitamin D3)) 2,000 Unit Capsule 2,000 Unit PO BID94 Trazodone Hcl 50 Mg Tablet 50 Mg PO PRN QHS PRN [place] Carbonate 300 Mg Tablet 300 Mg PO BID ROS: Review of Systems Review of System REVIEW OF SYSTEMS: GENERAL: Denies weakness SKIN: No bruising, hair changes or rashes. EYES: No blurred, double or loss of vision. NOSE AND THROAT: No history of nosebleeds, hoarseness or sore throat. HEART: No history of palpitations, chest pain or shortness of breath on exertion. LUNGS: Denies cough, hemoptysis, wheezing or shortness of breath. GASTROINTESTINAL: Denies changes in appetite, nausea, vomiting, diarrhea or constipation. GENITOURINARY: No history of frequency, urgency, hesitancy or nocturia. NEUROLOGIC: Denies history of numbness, tingling, or tremor. PSYCHIATRIC: No history of panic, anxiety or depression. ENDOCRINE: No history of heat or cold intolerance, polyuria or polydipsia. EXTREMITIES: Denies joint pain, pain on walking or stiffness. Physical Exam: Vital Signs: Vital Signs Date Time Temp Pulse Resp B/P (MAP) Pulse Ox O2 Delivery O2 Flow Rate FiO2 06/26/20 16:00 96 22 99 06/26/20 12:54 99.1 146/85 (105) Room Air 99.1 Physcial Exam: Alert and awake. GEN: No apparent distress. Alert and oriented HEENT: Normal cephalic, atraumatic, external auditory canals are patent. Mucous membranes are dry EYES: Extraocular muscles are intact, pupil are equally round and reactive to light and accommodation MUSCULOSKELETAL: Well developed , well nourished, good range of motion ENDOCRINE: No thyromegaly was palpated LYMPHATICS: No cervical chain or axillary nodes were noted HEMATOPOIETIC: No bruising NECK: Supple, no JVD, no thyromegaly was noted LUNGS: Clear to auscultation in all lung downing without rhonchi or wheezing HEART: RRR, S!, S2 present. Peripheral pulses intact, no obvious murmurs noted ABDOMEN: PEG tube opening with clotted blood. Abdomen is soft and nontender to palpation. Bowel sounds are heard. There is no purulence draining or active bleeding at this time. EXTREMITIES: Without clubbing, cyanosis, or edema. Pedal pulses intact. Negative Homans sign NEUROLOGIC: Normal speech and tone. A&O x 3, moves all extremities, no obvious focal deficits PSYCHIATRIC: Normal affect, normal mood. Stable SKIN: No ulcerations or rashes, good skin turgor, no jaundice VASCULAR: Good capillary refill, neurovascular bundle appears to be intact Labs: Labs: Laboratory Tests Test 06/26/20 13:10 06/26/20 13:12 06/26/20 13:39 White Blood Count 6.6 x10^3/uL (4.0-11.0) Red Blood Count 3.88 x10^6/uL (4.30-5.70) Hemoglobin 11.5 g/dL (13.0-17.5) Hematocrit 36.0 % (39.0-53.0) Mean Corpuscular Volume 93 fL (79-100) Mean Corpuscular Hemoglobin 30 pg (25-35) Mean Corpuscular Hemoglobin Concent 32 g/dL (31-37) Red Cell Distribution Width 17.2 % (11.5-14.5) Platelet Count 95 x10^3/uL (140-400) Neutrophils (%) (Auto) 71 % (31-73) Lymphocytes (%) (Auto) 21 % (24-48) Monocytes (%) (Auto) 7 % (0-9) Eosinophils (%) (Auto) 1 % (0-3) Basophils (%) (Auto) 0 % (0-3) Neutrophils # (Auto) 4.7 x10^3/uL (1.8-7.7) Lymphocytes # (Auto) 1.4 x10^3/uL (1.0-4.8) Monocytes # (Auto) 0.5 x10^3/uL (0.0-1.1) Eosinophils # (Auto) 0.1 x10^3/uL (0.0-0.7) Basophils # (Auto) 0.0 x10^3/uL (0.0-0.2) Platelet Estimate Decreased (ADEQUATE) Large Platelets Present Anisocytosis Slight Sodium Level 161 mmol/L (136-145) Potassium Level 4.3 mmol/L (3.5-5.1) Chloride Level 123 mmol/L (98-107) Carbon Dioxide Level 30 mmol/L (21-32) Anion Gap 8 (6-14) Blood Urea Nitrogen 26 mg/dL (8-26) Creatinine 2.7 mg/dL (0.7-1.3) Estimated GFR (Cockcroft-Gault) 28.1 BUN/Creatinine Ratio 10 (6-20) Glucose Level 319 mg/dL (70-99) Lactic Acid Level 1.5 mmol/L (0.4-2.0) Calcium Level 9.8 mg/dL (8.5-10.1) Magnesium Level 2.4 mg/dL (1.8-2.4) Total Bilirubin 0.6 mg/dL (0.2-1.0) Aspartate Amino Transf (AST/SGOT) 18 U/L (15-37) Alanine Aminotransferase (ALT/SGPT) 37 U/L (16-63) Alkaline Phosphatase 70 U/L (46-116) Creatine Kinase 139 U/L (39-308) Troponin I Quantitative < 0.017 ng/mL (0.000-0.055) Total Protein 7.0 g/dL (6.4-8.2) Albumin 2.7 g/dL (3.4-5.0) Albumin/Globulin Ratio 0.6 (1.0-1.7) Urine Collection Type Unknown Urine Color Yellow Urine Clarity Clear Urine pH 8.0 (<5.0-8.0) Urine Specific [place] 1.015 (1.000-1.030) Urine Protein 30 mg/dL (NEG-TRACE) Urine Glucose (UA) 250 mg/dL (NEG) Urine Ketones (Stick) Negative mg/dL (NEG) Urine Blood Negative (NEG) Urine Nitrite Negative (NEG) Urine Bilirubin Negative (NEG) Urine Urobilinogen Dipstick 1.0 mg/dL (0.2 mg/dL) Urine Leukocyte Esterase Small (NEG) Urine RBC 0 /HPF (0-2) Urine WBC 1-4 /HPF (0-4) Urine Squamous Epithelial Cells Mod /LPF Urine Amorphous Sediment Present /HPF Urine Bacteria Few /HPF (0-FEW) Urine Mucus Slight /LPF Urine Yeast Present /HPF Laboratory Tests Test 06/26/20 13:10 06/26/20 13:12 06/26/20 13:39 White Blood Count 6.6 x10^3/uL (4.0-11.0) Red Blood Count 3.88 x10^6/uL (4.30-5.70) Hemoglobin 11.5 g/dL (13.0-17.5) Hematocrit 36.0 % (39.0-53.0) Mean Corpuscular Volume 93 fL (79-100) Mean Corpuscular Hemoglobin 30 pg (25-35) Mean Corpuscular Hemoglobin Concent 32 g/dL (31-37) Red Cell Distribution Width 17.2 % (11.5-14.5) Platelet Count 95 x10^3/uL (140-400) Neutrophils (%) (Auto) 71 % (31-73) Lymphocytes (%) (Auto) 21 % (24-48) Monocytes (%) (Auto) 7 % (0-9) Eosinophils (%) (Auto) 1 % (0-3) Basophils (%) (Auto) 0 % (0-3) Neutrophils # (Auto) 4.7 x10^3/uL (1.8-7.7) Lymphocytes # (Auto) 1.4 x10^3/uL (1.0-4.8) Monocytes # (Auto) 0.5 x10^3/uL (0.0-1.1) Eosinophils # (Auto) 0.1 x10^3/uL (0.0-0.7) Basophils # (Auto) 0.0 x10^3/uL (0.0-0.2) Platelet Estimate Decreased (ADEQUATE) Large Platelets Present Anisocytosis Slight Sodium Level 161 mmol/L (136-145) Potassium Level 4.3 mmol/L (3.5-5.1) Chloride Level 123 mmol/L (98-107) Carbon Dioxide Level 30 mmol/L (21-32) Anion Gap 8 (6-14) Blood Urea Nitrogen 26 mg/dL (8-26) Creatinine 2.7 mg/dL (0.7-1.3) Estimated GFR (Cockcroft-Gault) 28.1 BUN/Creatinine Ratio 10 (6-20) Glucose Level 319 mg/dL (70-99) Lactic Acid Level 1.5 mmol/L (0.4-2.0) Calcium Level 9.8 mg/dL (8.5-10.1) Magnesium Level 2.4 mg/dL (1.8-2.4) Total Bilirubin 0.6 mg/dL (0.2-1.0) Aspartate Amino Transf (AST/SGOT) 18 U/L (15-37) Alanine Aminotransferase (ALT/SGPT) 37 U/L (16-63) Alkaline Phosphatase 70 U/L (46-116) Creatine Kinase 139 U/L (39-308) Troponin I Quantitative < 0.017 ng/mL (0.000-0.055) Total Protein 7.0 g/dL (6.4-8.2) Albumin 2.7 g/dL (3.4-5.0) Albumin/Globulin Ratio 0.6 (1.0-1.7) Urine Collection Type Unknown Urine Color Yellow Urine Clarity Clear Urine pH 8.0 (<5.0-8.0) Urine Specific [place] 1.015 (1.000-1.030) Urine Protein 30 mg/dL (NEG-TRACE) Urine Glucose (UA) 250 mg/dL (NEG) Urine Ketones (Stick) Negative mg/dL (NEG) Urine Blood Negative (NEG) Urine Nitrite Negative (NEG) Urine Bilirubin Negative (NEG) Urine Urobilinogen Dipstick 1.0 mg/dL (0.2 mg/dL) Urine Leukocyte Esterase Small (NEG) Urine RBC 0 /HPF (0-2) Urine WBC 1-4 /HPF (0-4) Urine Squamous Epithelial Cells Mod /LPF Urine Amorphous Sediment Present /HPF Urine Bacteria Few /HPF (0-FEW) Urine Mucus Slight /LPF Urine Yeast Present /HPF Images: Images CT head IMPRESSION: No acute intracranial findings Chest x-ray IMPRESSION: No acute abnormality noted CT abdomen pelvis IMPRESSION: Residual tract of a percutaneous gastrostomy tube with wall thickening of the ipsilateral rectus abdominous muscle. The stomach may be adherent to the peritoneal lining along the tract as it does not layer dependently as it previously did pre-PEG tube placement. No free intraperitoneal air or evidence of hemoperitoneum. Assessment/Plan Assessment/Plan Acute metabolic encephalopathy NOS Acute delirium or confusional state due to infectious versus toxic versus metabolic disturbance Dislodged PEG tube Acute severe hypernatremia Severe malnutrition Acute on chronic renal failure Thrombocytopenia Normocytic anemia Hyperglycemia Admit to medicine GI consult No obvious centrally acting medications currently. No obvious signs of infection on physical exam. No fevers or nuchal rigidity. CT head is negative for acute etiology. No history or signs of trauma Consider dementia prevention protocol Provide adequate lighting (open curtains during the day, turn the lights off at night) Provide frequent personal contact with family, friends, and staff or TV Rehab screening ordered IV Haldol as needed for agitation, consider sitter as needed if non-redirectable agitation Avoid physical restraints, catheters or tubes, and benzodiazepines Nutrition consult if there is malnutrition or concern for vitamin deficiencies Continue IV fluids Hold DVT prophylaxis for now IV Protonix GI prophylaxis ADA diet Full code Discussed with RN and SW Dispo pending GI evaluation is the MPOA MILLA MEDINA MD Jun 26, 2020 17:43
--- NOTE | 2020-06-26 20:19 | NUR ---
Walker arrived shortly after 8 pm via bed from ED w/ Hypernatremia, renal insufficiency and peg tube malfunction. He is alert to self only. Has not made any needs known.
[2020-06-26] MEDS ORDERED: DEXTROSE 50% 25 GM / 50ML DISP.SYRIN. IV PRN (22:15)
[2020-06-26 22:41] VITALS: BP 125/69
[2020-06-26 22:46] VITALS: BP 143/89
[2020-06-26] MEDS: IV DEXTROSE 5 %-0.2 % NACL 1,000 ML IV SCH (23:04)
[2020-06-27] MEDS: INSULIN LISPRO 300 UNITS/3 ML VIAL. SQ SCH ×4 (00:53→18:44)
[2020-06-27 03:00] VITALS: BP 125/84
[2020-06-27] MEDS: IV DEXTROSE 5 %-0.2 % NACL 1,000 ML IV SCH ×2 (06:00→12:30)
--- NOTE | 2020-06-27 06:37 | NUR ---
Notified 's and Dr. Franco's answering services about Consults. Awaiting callback.
[2020-06-27 07:28] VITALS: BP 136/76
--- NOTE | 2020-06-27 08:24 | PDOC2 ---
BETSEYAGUILA L PATTERN CHANGER 06/27/20 0824: CONSULT Date of Consult Date of Consult DATE: 06/27/20 TIME: 08:19 Reason for Consult Reason for Consult: replacement of peg tube Referring Physician Referring Physician: Dr Franco Identification/Chief Complaint Chief Complaint peg tube pulled out Source Source: Chart review History of Present Illness Reason for Visit: Patient unable to provide any history. No family present--reviewed records PEG placed for oropharyngeal dysphagia and dementia on 06/23/20--went home with care--yesterday patient pulled peg out--unsure of timing when came to ER GI consulted us for possible surgical g tube Past Medical History Cardiovascular: CAD, HTN, [place], Hyperlipidemia, Other Pulmonary: COPD CENTRAL NERVOUS SYSTEM: Dementia GI: Diverticulosis, GERD Heme/Onc: No pertinent hx Hepatobiliary: No pertinent hx Psych: Bipolar, Other Musculoskeletal: Osteoarthritis Rheumatologic: No pertinent hx Infectious disease: No pertinent hx Renal/: Chronic renal insuff Endocrine: No pertinent hx Past Surgical History Past Surgical History: CABG, Other Family History Family History: Hypertension, Family History Unknown Social History Lives: with Family Domestic Violence: Neg Current Problem List Problem List Problems Medical Problems: (1) Alzheimer's dementia Status: Acute (2) Anemia Status: Acute (3) CKD (chronic kidney disease) Status: Acute (4) Hypernatremia Status: Acute (5) PEG tube malfunction Status: Acute Current Medications Current Medications Current Medications Piperacillin Sod/ Tazobactam Sod 4.5 gm/Sodium Chloride 100 ml @ 200 mls/hr 1X ONCE IV Last administered on 06/26/20at 15:09; Start 06/26/20 at 14:45; Stop 06/26/20 at 15:14; Status DC Pantoprazole Sodium (PROTONIX VIAL for IV PUSH) 40 mg DAILY IVP Last administered on 06/26/20at 16:58; Start 06/26/20 at 16:30; Stop 06/26/20 at 20:20; Status DC Pantoprazole Sodium (PROTONIX VIAL for IV PUSH) 40 mg DAILYAC IVP ; Start 06/27/20 at 07:30 Insulin Human Lispro (HumaLOG) 0-9 UNITS Q6HRS SQ Last administered on 06/27/20at 06:04; Start 06/27/20 at 00:00 Dextrose (Dextrose 50%-Water Syringe) 12.5 gm PRN Q15MIN PRN IV SEE COMMENTS; Start 06/26/20 at 22:15 Dextrose/Sodium Chloride 1,000 ml @ 140 mls/hr Q7H9M IV Last administered on 06/27/20at 06:00; Start 06/26/20 at 22:15 Active Scripts Active [Acetaminophen] 500 MG Tablet 500 Mg PO PRN Q6HRS PRN Coreg (Carvedilol) 6.25 Mg Tablet 6.25 Mg PO BIDWMEALS Reported Famotidine 20 Mg Tablet 20 Mg PO BIDAC Levemir Flextouch (Insulin Detemir) 100 Unit/1 Ml Insul[place].pen 42 Unit SQ TIDAC Flonase Allergy Relief (Fluticasone Propionate) 9.9 Ml [place].susp 2 Sprays NS DAILY Aspirin 81 Mg Tab.chew 1 Tab PO DAILY Atorvastatin Calcium 80 Mg Tablet 1 Tab PO HS Calcium (Calcium Carbonate) 500 Mg Tablet 500 Mg PO BID92 Vitamin D (Cholecalciferol (Vitamin D3)) 2,000 Unit Capsule 2,000 Unit PO BID94 Trazodone Hcl 50 Mg Tablet 50 Mg PO PRN QHS PRN [place] Carbonate 300 Mg Tablet 300 Mg PO BID Allergies Allergies: Coded Allergies: No Known Drug Allergies (Unverified , 06/23/20) ROS Review of System unable to obtain due to mental status Physical Exam General: No acute distress HEENT: Atraumatic, Mucous membr. moist/pink Lungs: Other (diminished) Heart: Regular rate, Normal S1, Normal S2 Abdomen: Soft, No tenderness Extremities: No clubbing, No cyanosis Skin: No rashes, No breakdown Vitals VITALS Vital Signs Date Time Temp Pulse Resp B/P (MAP) Pulse Ox O2 Delivery O2 Flow Rate FiO2 06/27/20 07:28 98.6 93 18 136/76 (96) 95 Room Air 98.6 Labs Labs Laboratory Tests Test 06/26/20 13:10 06/26/20 13:12 06/26/20 13:39 06/26/20 22:56 White Blood Count 6.6 x10^3/uL (4.0-11.0) Red Blood Count 3.88 x10^6/uL (4.30-5.70) Hemoglobin 11.5 g/dL (13.0-17.5) Hematocrit 36.0 % (39.0-53.0) Mean Corpuscular Volume 93 fL (79-100) Mean Corpuscular Hemoglobin 30 pg (25-35) Mean Corpuscular Hemoglobin Concent 32 g/dL (31-37) Red Cell Distribution Width 17.2 % (11.5-14.5) Platelet Count 95 x10^3/uL (140-400) Neutrophils (%) (Auto) 71 % (31-73) Lymphocytes (%) (Auto) 21 % (24-48) Monocytes (%) (Auto) 7 % (0-9) Eosinophils (%) (Auto) 1 % (0-3) Basophils (%) (Auto) 0 % (0-3) Neutrophils # (Auto) 4.7 x10^3/uL (1.8-7.7) Lymphocytes # (Auto) 1.4 x10^3/uL (1.0-4.8) Monocytes # (Auto) 0.5 x10^3/uL (0.0-1.1) Eosinophils # (Auto) 0.1 x10^3/uL (0.0-0.7) Basophils # (Auto) 0.0 x10^3/uL (0.0-0.2) Platelet Estimate Decreased (ADEQUATE) Large Platelets Present Anisocytosis Slight Sodium Level 161 mmol/L (136-145) Potassium Level 4.3 mmol/L (3.5-5.1) Chloride Level 123 mmol/L (98-107) Carbon Dioxide Level 30 mmol/L (21-32) Anion Gap 8 (6-14) Blood Urea Nitrogen 26 mg/dL (8-26) Creatinine 2.7 mg/dL (0.7-1.3) Estimated GFR (Cockcroft-Gault) 28.1 BUN/Creatinine Ratio 10 (6-20) Glucose Level 319 mg/dL (70-99) Lactic Acid Level 1.5 mmol/L (0.4-2.0) Calcium Level 9.8 mg/dL (8.5-10.1) Magnesium Level 2.4 mg/dL (1.8-2.4) Total Bilirubin 0.6 mg/dL (0.2-1.0) Aspartate Amino Transf (AST/SGOT) 18 U/L (15-37) Alanine Aminotransferase (ALT/SGPT) 37 U/L (16-63) Alkaline Phosphatase 70 U/L (46-116) Creatine Kinase 139 U/L (39-308) Troponin I Quantitative < 0.017 ng/mL (0.000-0.055) Total Protein 7.0 g/dL (6.4-8.2) Albumin 2.7 g/dL (3.4-5.0) Albumin/Globulin Ratio 0.6 (1.0-1.7) Urine Collection Type Unknown Urine Color Yellow Urine Clarity Clear Urine pH 8.0 (<5.0-8.0) Urine Specific [place] 1.015 (1.000-1.030) Urine Protein 30 mg/dL (NEG-TRACE) Urine Glucose (UA) 250 mg/dL (NEG) Urine Ketones (Stick) Negative mg/dL (NEG) Urine Blood Negative (NEG) Urine Nitrite Negative (NEG) Urine Bilirubin Negative (NEG) Urine Urobilinogen Dipstick 1.0 mg/dL (0.2 mg/dL) Urine Leukocyte Esterase Small (NEG) Urine RBC 0 /HPF (0-2) Urine WBC 1-4 /HPF (0-4) Urine Squamous Epithelial Cells Mod /LPF Urine Amorphous Sediment Present /HPF Urine Bacteria Few /HPF (0-FEW) Urine Mucus Slight /LPF Urine Yeast Present /HPF Glucose (Fingerstick) 253 mg/dL (70-99) Test 06/27/20 05:51 Glucose (Fingerstick) 295 mg/dL (70-99) Laboratory Tests Test 06/26/20 13:10 06/26/20 13:12 06/26/20 13:39 06/26/20 22:56 White Blood Count 6.6 x10^3/uL (4.0-11.0) Red Blood Count 3.88 x10^6/uL (4.30-5.70) Hemoglobin 11.5 g/dL (13.0-17.5) Hematocrit 36.0 % (39.0-53.0) Mean Corpuscular Volume 93 fL (79-100) Mean Corpuscular Hemoglobin 30 pg (25-35) Mean Corpuscular Hemoglobin Concent 32 g/dL (31-37) Red Cell Distribution Width 17.2 % (11.5-14.5) Platelet Count 95 x10^3/uL (140-400) Neutrophils (%) (Auto) 71 % (31-73) Lymphocytes (%) (Auto) 21 % (24-48) Monocytes (%) (Auto) 7 % (0-9) Eosinophils (%) (Auto) 1 % (0-3) Basophils (%) (Auto) 0 % (0-3) Neutrophils # (Auto) 4.7 x10^3/uL (1.8-7.7) Lymphocytes # (Auto) 1.4 x10^3/uL (1.0-4.8) Monocytes # (Auto) 0.5 x10^3/uL (0.0-1.1) Eosinophils # (Auto) 0.1 x10^3/uL (0.0-0.7) Basophils # (Auto) 0.0 x10^3/uL (0.0-0.2) Platelet Estimate Decreased (ADEQUATE) Large Platelets Present Anisocytosis Slight Sodium Level 161 mmol/L (136-145) Potassium Level 4.3 mmol/L (3.5-5.1) Chloride Level 123 mmol/L (98-107) Carbon Dioxide Level 30 mmol/L (21-32) Anion Gap 8 (6-14) Blood Urea Nitrogen 26 mg/dL (8-26) Creatinine 2.7 mg/dL (0.7-1.3) Estimated GFR (Cockcroft-Gault) 28.1 BUN/Creatinine Ratio 10 (6-20) Glucose Level 319 mg/dL (70-99) Lactic Acid Level 1.5 mmol/L (0.4-2.0) Calcium Level 9.8 mg/dL (8.5-10.1) Magnesium Level 2.4 mg/dL (1.8-2.4) Total Bilirubin 0.6 mg/dL (0.2-1.0) Aspartate Amino Transf (AST/SGOT) 18 U/L (15-37) Alanine Aminotransferase (ALT/SGPT) 37 U/L (16-63) Alkaline Phosphatase 70 U/L (46-116) Creatine Kinase 139 U/L (39-308) Troponin I Quantitative < 0.017 ng/mL (0.000-0.055) Total Protein 7.0 g/dL (6.4-8.2) Albumin 2.7 g/dL (3.4-5.0) Albumin/Globulin Ratio 0.6 (1.0-1.7) Urine Collection Type Unknown Urine Color Yellow Urine Clarity Clear Urine pH 8.0 (<5.0-8.0) Urine Specific [place] 1.015 (1.000-1.030) Urine Protein 30 mg/dL (NEG-TRACE) Urine Glucose (UA) 250 mg/dL (NEG) Urine Ketones (Stick) Negative mg/dL (NEG) Urine Blood Negative (NEG) Urine Nitrite Negative (NEG) Urine Bilirubin Negative (NEG) Urine Urobilinogen Dipstick 1.0 mg/dL (0.2 mg/dL) Urine Leukocyte Esterase Small (NEG) Urine RBC 0 /HPF (0-2) Urine WBC 1-4 /HPF (0-4) Urine Squamous Epithelial Cells Mod /LPF Urine Amorphous Sediment Present /HPF Urine Bacteria Few /HPF (0-FEW) Urine Mucus Slight /LPF Urine Yeast Present /HPF Glucose (Fingerstick) 253 mg/dL (70-99) Test 06/27/20 05:51 Glucose (Fingerstick) 295 mg/dL (70-99) Assessment/Plan Assessment/Plan will need to allow previous track to heal prior to any possible g tube--typically a month--would consider alternative nutrition support at this time concern for potential that patient would dislodge tube again YOHANA BRANHAM MD 06/27/20 1850: CONSULT Assessment/Plan Assessment/Plan Pt seen and examined. Agree with Ms. Jin's note Pt appears comfortable. abd soft, PEG tube site clean with minimal drainage will plan G-tube placement in a month AGUILA JIN APRN Jun 27, 2020 08:24 YOHANA BRANHAM MD Jun 27, 2020 18:50
[2020-06-27] MEDS: PANTOPRAZOLE IV PUSH 40 MG VIAL. IVP SCH (08:54)
[2020-06-27 11:00] VITALS: BP 146/68
--- NOTE | 2020-06-27 12:20 | NUR ---
Wound Care Wound Type/Assessment: LUQ PEG site, s/p tube dislodgment. LUQ site open, draining a moderate amount of brown, creamy liquid. Wound flushed with saline, unable to assess wound base but edges are pale pink and white, sloughy, periwound skin peeling. Treatment Recommendations/Plan: Covered with Aquacel AG, gauze and tape, recommended changing daily. Did not pack into the hole, as we want this opening to close spontaneously. Education provided: to RN re: dressing changes. Offloading surface/device: n/a Recommended Referrals/Tests: defer to GI Discharge Recommendations for dressings: antimicrobial, absorbant dressing changes daily and prn, depending on drainage. Addendum: 06/27/20 at 1530 by Nithya Ragsdale RN Noticed pt's gown was urine soaked, as well as brief and chux. Pt cleaned, linens and gown changed, pt repositioned onto back, heels floated. No other open wounds noted on skin inspection.
--- NOTE | 2020-06-27 12:42 | PDOC ---
Date of Service: DATE: 06/27/20 TIME: 12:39 Objective: Objective: D/w nurse - plans for PICC placement today and TPN. Family now prefers DC to SNU. Surgery following for possible G tube placement in ~1 month. Vital Signs: Vital Signs Date Time Temp Pulse Resp B/P (MAP) Pulse Ox O2 Delivery O2 Flow Rate FiO2 06/27/20 11:00 98.3 86 18 146/68 (94) 96 Room Air 98.3 Labs: Laboratory Tests Test 06/26/20 13:10 06/26/20 13:12 06/26/20 13:39 06/26/20 22:56 White Blood Count 6.6 x10^3/uL Red Blood Count 3.88 x10^6/uL Hemoglobin 11.5 g/dL Hematocrit 36.0 % Mean Corpuscular Volume 93 fL Mean Corpuscular Hemoglobin 30 pg Mean Corpuscular Hemoglobin Concent 32 g/dL Red Cell Distribution Width 17.2 % Platelet Count 95 x10^3/uL Neutrophils (%) (Auto) 71 % Lymphocytes (%) (Auto) 21 % Monocytes (%) (Auto) 7 % Eosinophils (%) (Auto) 1 % Basophils (%) (Auto) 0 % Neutrophils # (Auto) 4.7 x10^3/uL Lymphocytes # (Auto) 1.4 x10^3/uL Monocytes # (Auto) 0.5 x10^3/uL Eosinophils # (Auto) 0.1 x10^3/uL Basophils # (Auto) 0.0 x10^3/uL Platelet Estimate Decreased Large Platelets Present Anisocytosis Slight Sodium Level 161 mmol/L Potassium Level 4.3 mmol/L Chloride Level 123 mmol/L Carbon Dioxide Level 30 mmol/L Anion Gap 8 Blood Urea Nitrogen 26 mg/dL Creatinine 2.7 mg/dL Estimated GFR (Cockcroft-Gault) 28.1 BUN/Creatinine Ratio 10 Glucose Level 319 mg/dL Lactic Acid Level 1.5 mmol/L Calcium Level 9.8 mg/dL Magnesium Level 2.4 mg/dL Total Bilirubin 0.6 mg/dL Aspartate Amino Transf (AST/SGOT) 18 U/L Alanine Aminotransferase (ALT/SGPT) 37 U/L Alkaline Phosphatase 70 U/L Creatine Kinase 139 U/L Troponin I Quantitative < 0.017 ng/mL Total Protein 7.0 g/dL Albumin 2.7 g/dL Albumin/Globulin Ratio 0.6 Urine Collection Type Unknown Urine Color Yellow Urine Clarity Clear Urine pH 8.0 Urine Specific [place] 1.015 Urine Protein 30 mg/dL Urine Glucose (UA) 250 mg/dL Urine Ketones (Stick) Negative mg/dL Urine Blood Negative Urine Nitrite Negative Urine Bilirubin Negative Urine Urobilinogen Dipstick 1.0 mg/dL Urine Leukocyte Esterase Small Urine RBC 0 /HPF Urine WBC 1-4 /HPF Urine Squamous Epithelial Cells Mod /LPF Urine Amorphous Sediment Present /HPF Urine Bacteria Few /HPF Urine Mucus Slight /LPF Urine Yeast Present /HPF Glucose (Fingerstick) 253 mg/dL Test 06/27/20 05:51 06/27/20 11:36 Glucose (Fingerstick) 295 mg/dL 263 mg/dL URINE CULTURE Final Final No Growth on 06/27/20 at 0942 PE: GEN: NAD LUNGS: CTAB HEART: RRR ABD: soft, dressing over PEG site NEURO/PSYCH: awake, does not verbalize A/P: Dementia, dysphagia, recently placed PEG/pulled out MAIRA, hypernatremia -- Plans as above. Recheck of sodium pending. Justicifation of Admission Dx: Justifications for Admission: Justification of Admission Dx: Yes Chronic Renal Failure: Intravenous Infusions (post surgical complication) RIAN PARRISH Jun 27, 2020 12:42
[2020-06-27] MEDS: TPN PER PHARMACY MC PRN (12:54)
[2020-06-27] MEDS ORDERED: LIDOCAINE WITH 8.4% SOD BICARB 3 ML DISP.SYRIN. ONE (12:54)
--- NOTE | 2020-06-27 13:07 | NUR ---
Pharmacy TPN Dosing Note S: FAMILIAALYSSASHEKHAR ALAS is a 74 year old M Currently receiving Central Continuous TPN started 06/27/20 B:Pertinent PMH: PEG MALFUNCTION Height: 5 feet, 10 inches Weight: 92.4 kg Current diet: NPO LABS: Sodium: 161 Potassium: 4.3 Chloride: 123 Calcium: 9.8 Corrected Calcium: 10.84 Magnesium: 2.4 CO2: 30 SCr: 2.7 Glucose: 253-319 Albumin: 2.7 AST: 18 ALT: 37 TPN FORMULA: TPN TYPE: Central Continuous AMINO ACIDS: 80 gm DEXTROSE: 270 gm LIPIDS: 30 gm POTASSIUM ACETATE: 50 mEq POTASSIUM PHOSPHATE: 13.6 mmol MAGNESIUM: 10 mEq CALCIUM: 10 mEq MULTIPLE VITAMIN: 10 ml TRACE ELEMENTS: 1 ml(s) TPN PLAN: Start TPN per most recent fomula (06/23/20). R: Begin TPN Will monitor electrolytes, glucose, and tolerance to TPN. Nroah Nunes [facility], 06/27/20 [id number]
[2020-06-27 13:12] LABS: BASO % 0 % (0-3); EOS # 0.1 x10^3/uL (0.0-0.7); EOS % 3 % (0-3); HEMATOCRIT 34.9 % (39.0-53.0); LYMPH # 1.2 x10^3/uL (1.0-4.8); LYMPH % 24 % (24-48); MEAN CORPUSCULAR HEMOGLOBIN 30 pg (25-35); MEAN CORPUSCULAR HGB CONC 32 g/dL (31-37); MEAN CORPUSCULAR VOLUME 94 fL (79-100); MONO # 0.4 x10^3/uL (0.0-1.1); MONO % 8 % (0-9); NEUT # 3.4 x10^3/uL (1.8-7.7); NEUT % 66 % (31-73); PLATELET COUNT 87 x10^3/uL (140-400); RED BLOOD COUNT 3.73 x10^6/uL (4.30-5.70); RED CELL DISTRIBUTION WIDTH 17.3 % (11.5-14.5); WHITE BLOOD COUNT 5.2 x10^3/uL (4.0-11.0)
[2020-06-27] MEDS ORDERED: LIDOCAINE WITH 8.4% SOD BICARB 3 ML DISP.SYRIN. INJ ONE (13:15)
[2020-06-27 13:20] LABS: CREATININE 2.6 mg/dL (0.7-1.3); GFR 29.3; POTASSIUM 3.9 mmol/L (3.5-5.1)
--- NOTE | 2020-06-27 13:38 | NUR ---
SUDEEP following for discharge planning. Spoke with RN and reviewed chart. SUDEEP spoke with Dr. Gates and requested PT/OT consult. Pt from home with and HH. Pt has a supportive daughter Gayla ([phone]) who assists pt and pt's with medical decisions. Pt's dtr would like pt to have acute rehab at [facility] on discharge but they don't do TPN at [facility]. Pt will have PICC placed and will be started on TPN until the original site of the PEG tube heals and a new PEG can be placed. Pt has BCBS and may not qualify for acute rehab, but a referral was phoned and faxed to [facility] as they do TPN at their acute rehab. SUDEEP spoke with Deepali at [facility] and asked that she submit for authorization. Pt's dtr does not want SNU for this patient. SUDEEP updated Patient Choice of Vendor form. SUDEEP following. Addendum: 06/27/20 at 1406 by KIM SHEETS Daughter Gayla called back to say she spoke with her mom and they are willing to consider SNU at [facility] or [facility] since our hospitalist see patients at these two facilities. SUDEEP phoned and faxed referral to Kera at [facility]. Pt's family is not ready for hospice services for pt and they want aggressive care. Pt is full code. Addendum: 06/27/20 at 1508 by KIM SHEETS [facility] is reviewing this referral and they do take TPN per Kera. SUDEEP confirmed with Polly at [facility] that they do not take TPN. SUDEEP also requested a COVID test from RN. PT/OT has been ordered. SUDEEP told Deepali at [facility] to wait on getting authorization as pt has BCBS insurance and meets SNU criteria better than acute rehab criteria. Dtr agreeable to SNU at [facility]. SUDEEP following.
--- NOTE | 2020-06-27 13:40 | PDOC ---
[employer] PROGRESS NOTE Date of Service DOS: DATE: 06/27/20 TIME: 13:34 Chief Complaint Chief Complaint Acute metabolic encephalopathy NOS Acute delirium or confusional state due to infectious versus toxic versus metabolic disturbance Dislodged PEG tube Acute severe hypernatremia likely due to decreased p.o. intake Severe malnutrition Acute on chronic renal failure Thrombocytopenia Normocytic anemia Hyperglycemia Admit to medicine GI consult Surgery consultedrecommended no surgical procedure at this time and will wait for PEG ostomy to close off before doing formal surgical procedure. We will start TPN for now PICC line placement pending Nephrology consulted for elevated sodium and acute renal failure versus CKD Continue D5W at 140 for now Trend sodium levels daily Consider dementia prevention protocol Provide adequate lighting (open curtains during the day, turn the lights off at night) Provide frequent personal contact with family, friends, and staff or TV Rehab screening ordered IV Haldol as needed for agitation, consider sitter as needed if non-redirectable agitation Avoid physical restraints, catheters or tubes, and benzodiazepines Nutrition consult if there is malnutrition or concern for vitamin deficiencies Continue IV fluids Hold DVT prophylaxis for now IV Protonix GI prophylaxis ADA diet Full code Discussed with RN and SW Dispo pending GI evaluation is the [facility] History of Present Illness History of Present Illness 74-year-old male with past medical history of CABG, severe dementia, GERD, dyslipidemia, CKD, vascular disease, recent PEG tube placement on 06/21/2020 who comes to the ED because he recently pulled out his PEG tube. Daughter states that the PEG tube was leaking and they had to remove the abdominal binder. Moments later when they came back to try to feed him or given his medications through the PEG tube they realized that the PEG tube was already in his hand. Patient was recently discharged from the hospital after the PEG tube was placed. All of the history was obtained from the daughter and the who lives with the patient. Nursing facility options were discussed with the family at the last admission however they did not want the patient to go to a facility at that time. There was also no discussion for palliative care either. At that time, discussion was made to prolong life at that time and therefore a PEG tube was placed. Daughter at bedside states that the patient is fairly close to his baseline however he appears to be fairly weak. Patient is able to respond with one-word responses. Patient is alert and awake and oriented x1. Patient is not able to provide any parts of his history. Family meeting was held outside patient's room with and daughter. At this point, states that most of the patient's condition happened so quickly that the family did not have time to discuss hospice options or palliative care route. understands that the patient's condition is very severe and he has very poor prognosis. It was discussed in detail whether she should choose options for quality of life versus life prolonging measurements. At this time, family will continue to have discussions amongst himself to decide further planning for the patient. 06/27/2020 Patient seen and examined bedside today. No dramatic changes in his mental stat us. Responding appropriately with context of his severe dementia. Patient's chart, labs, images were reviewed and discussed with RN Vitals/I&O Vitals/I&O: Vital Signs Date Time Temp Pulse Resp B/P (MAP) Pulse Ox O2 Delivery O2 Flow Rate FiO2 06/27/20 11:00 98.3 86 18 146/68 (94) 96 Room Air 98.3 I & O 06/26/20 06/26/20 06/27/20 15:00 23:00 07:00 Intake Total 100 ml 0 ml Balance 100 ml 0 ml Physical Exam Physical Exam: GEN: No apparent distress. Alert and awake. Severely demented. Age- appropriate appearance HEENT: Normal cephalic, atraumatic, external auditory canals are patent NECK: Supple, no JVD, no thyromegaly was noted LUNGS: Bilateral clear to auscultation HEART: RRR, S1, S2 present. Peripheral pulses intact, no obvious murmurs noted ABDOMEN: PEG tube opening with clotted blood. Abdomen is soft and nontender to palpation. Bowel sounds are heard. There is no purulence draining or active bleeding at this time. EXTREMITIES: Without clubbing, cyanosis, or edema. Pedal pulses intact. Nega tive Homans sign General: No acute distress Heart: Regular rate, Normal S1, Normal S2 Lungs: Clear Abdomen: Soft, No tenderness Extremities: No clubbing, No cyanosis Skin: No rashes, No breakdown Labs Labs: Laboratory Tests Test 06/26/20 13:39 06/26/20 22:56 06/27/20 05:51 06/27/20 11:36 Urine Collection Type Unknown Urine Color Yellow Urine Clarity Clear Urine pH 8.0 (<5.0-8.0) Urine Specific [place] 1.015 (1.000-1.030) Urine Protein 30 mg/dL (NEG-TRACE) Urine Glucose (UA) 250 mg/dL (NEG) Urine Ketones (Stick) Negative mg/dL (NEG) Urine Blood Negative (NEG) Urine Nitrite Negative (NEG) Urine Bilirubin Negative (NEG) Urine Urobilinogen Dipstick 1.0 mg/dL (0.2 mg/dL) Urine Leukocyte Esterase Small (NEG) Urine RBC 0 /HPF (0-2) Urine WBC 1-4 /HPF (0-4) Urine Squamous Epithelial Cells Mod /LPF Urine Amorphous Sediment Present /HPF Urine Bacteria Few /HPF (0-FEW) Urine Mucus Slight /LPF Urine Yeast Present /HPF Glucose (Fingerstick) 253 mg/dL (70-99) 295 mg/dL (70-99) 263 mg/dL (70-99) Test 06/27/20 12:30 White Blood Count 5.2 x10^3/uL (4.0-11.0) Red Blood Count 3.73 x10^6/uL (4.30-5.70) Hemoglobin 11.0 g/dL (13.0-17.5) Hematocrit 34.9 % (39.0-53.0) Mean Corpuscular Volume 94 fL (79-100) Mean Corpuscular Hemoglobin 30 pg (25-35) Mean Corpuscular Hemoglobin Concent 32 g/dL (31-37) Red Cell Distribution Width 17.3 % (11.5-14.5) Platelet Count 87 x10^3/uL (140-400) Neutrophils (%) (Auto) 66 % (31-73) Lymphocytes (%) (Auto) 24 % (24-48) Monocytes (%) (Auto) 8 % (0-9) Eosinophils (%) (Auto) 3 % (0-3) Basophils (%) (Auto) 0 % (0-3) Neutrophils # (Auto) 3.4 x10^3/uL (1.8-7.7) Lymphocytes # (Auto) 1.2 x10^3/uL (1.0-4.8) Monocytes # (Auto) 0.4 x10^3/uL (0.0-1.1) Eosinophils # (Auto) 0.1 x10^3/uL (0.0-0.7) Basophils # (Auto) 0.0 x10^3/uL (0.0-0.2) Sodium Level 160 mmol/L (136-145) Potassium Level 3.9 mmol/L (3.5-5.1) Chloride Level 122 mmol/L (98-107) Carbon Dioxide Level 31 mmol/L (21-32) Anion Gap 7 (6-14) Blood Urea Nitrogen 26 mg/dL (8-26) Creatinine 2.6 mg/dL (0.7-1.3) Estimated GFR (Cockcroft-Gault) 29.3 Glucose Level 299 mg/dL (70-99) Calcium Level 9.0 mg/dL (8.5-10.1) Assessment and Plan Assessmemt and Plan Problems Medical Problems: (1) Alzheimer's dementia Status: Acute (2) Anemia Status: Acute (3) CKD (chronic kidney disease) Status: Acute (4) Hypernatremia Status: Acute (5) PEG tube malfunction Status: Acute Comment Review of Relevant I have reviewed the following items miles (where applicable) has been applied. Medications: Current Medications Medications (Trade) Dose Ordered Sig/Quinn Route PRN Reason Start Time Stop Time Status Last Admin Dose Admin Piperacillin Sod/ Tazobactam Sod 4.5 gm/Sodium Chloride 100 ml @ 200 mls/hr 1X ONCE IV 06/26/20 14:45 06/26/20 15:14 DC 06/26/20 15:09 Pantoprazole Sodium (PROTONIX VIAL for IV PUSH) 40 mg DAILY IVP 06/26/20 16:30 06/26/20 20:20 DC 06/26/20 16:58 Pantoprazole Sodium (PROTONIX VIAL for IV PUSH) 40 mg DAILYAC IVP 06/27/20 07:30 06/27/20 08:54 Insulin Human Lispro (HumaLOG) 0-9 UNITS Q6HRS SQ 06/27/20 00:00 06/27/20 12:36 Dextrose/Sodium Chloride 1,000 ml @ 140 mls/hr Q7H9M IV 06/26/20 22:15 06/27/20 12:30 Info (Tpn Per Pharmacy) 1 each PRN DAILY PRN MC SEE COMMENTS 06/27/20 09:15 06/27/20 12:54 MILLA MEDINA MD Jun 27, 2020 13:40
[2020-06-27] MEDS: IV DEXTROSE 5% 1,000 ML IV SCH ×2 (14:52→21:20)
--- NOTE | 2020-06-27 15:19 | RAD ---
Exam: Fluoroscopic and ultrasound guided right percutaneous inserted central venous catheter placement 06/27/2020 1:15 PM .Indication: TPN access Technique: Informed oral and written consent were obtained. The right upper extremity was prepped and draped using sterile barrier technique. All elements of maximal sterile barrier technique including the use of a cap, mask, sterile gown, sterile gloves, large sterile sheet, appropriate hand hygiene, and 2% chlorhexidine for cutaneous antisepsis (or acceptable alternative antiseptic per current guidelines) were followed for this procedure.. Real-time ultrasound demonstrated a patent right cephalic vein which was prepped and draped in usual sterile fashion. 1% lidocaine used for local anesthesia. Using real-time ultrasound guidance the access needle percutaneously punctured the selected right basilic vein. Reference ultrasound images were saved to the medical record. A guidewire was advanced through the needle to the cavoatrial junction, and a peel-away sheath placed. The catheter was cut to length and inserted through the peel-away sheath such that its tip is at the cavoatrial junction. The wire and sheath were removed, and the catheter secured in place, and a sterile dressing was applied. Catheter was found to flush and aspirate normally. No immediate complications are identified. FLUORO TIME: 0.9 min DOSE AREA PRODUCT: 1 Gycm2 Impression: Ultrasound and fluoroscopically guided placement of a right upper extremity PICC line.
[2020-06-27 15:32] VITALS: BP 137/71
[2020-06-27 19:00] VITALS: BP 113/67
[2020-06-27] MEDS: INSULIN GLARGINE SYRINGE. SQ SCH (21:26)
[2020-06-27] MEDS ORDERED: DEXTROSE 70% IV SCH ×9 (22:00)
[2020-06-27] MEDS ORDERED: TOTAL PARENTERAL NUTRITION IV SCH ×9 (22:00)
[2020-06-27] MEDS ORDERED: AMINO ACID IV SCH ×9 (22:00)
[2020-06-27] MEDS ORDERED: [UNRECOGNIZED DRUG - OTHER] IV SCH ×9 (22:00)
[2020-06-27 23:00] VITALS: BP 131/72
[2020-06-28] MEDS: INSULIN LISPRO 300 UNITS/3 ML VIAL. SQ SCH ×4 (00:30→19:01)
[2020-06-28 03:00] VITALS: BP 100/57
[2020-06-28] MEDS: IV DEXTROSE 5% 1,000 ML IV SCH ×2 (05:26→11:12)
[2020-06-28 06:23] LABS: CALCIUM 8.7 mg/dL (8.5-10.1); CREATININE 2.3 mg/dL (0.7-1.3); GFR 33.8; PHOSPHORUS 3.6 mg/dL (2.6-4.7); POTASSIUM 3.6 mmol/L (3.5-5.1)
[2020-06-28 07:15] VITALS: BP 105/65
[2020-06-28] MEDS: PANTOPRAZOLE IV PUSH 40 MG VIAL. IVP SCH (09:43)
--- NOTE | 2020-06-28 10:53 | PDOC ---
Date of Service: DATE: 06/28/20 TIME: 10:50 Objective: Objective: D/w nurse - bleeding from former PEG site, requiring several dressing changes, pt won't leave wound alone. Vital Signs: Vital Signs Date Time Temp Pulse Resp B/P (MAP) Pulse Ox O2 Delivery O2 Flow Rate FiO2 06/28/20 07:15 97.6 80 18 105/65 (78) 98 Room Air 97.6 Labs: Laboratory Tests Test 06/27/20 11:36 06/27/20 12:30 06/27/20 18:37 06/28/20 00:22 Glucose (Fingerstick) 263 mg/dL 236 mg/dL 307 mg/dL White Blood Count 5.2 x10^3/uL Red Blood Count 3.73 x10^6/uL Hemoglobin 11.0 g/dL Hematocrit 34.9 % Mean Corpuscular Volume 94 fL Mean Corpuscular Hemoglobin 30 pg Mean Corpuscular Hemoglobin Concent 32 g/dL Red Cell Distribution Width 17.3 % Platelet Count 87 x10^3/uL Neutrophils (%) (Auto) 66 % Lymphocytes (%) (Auto) 24 % Monocytes (%) (Auto) 8 % Eosinophils (%) (Auto) 3 % Basophils (%) (Auto) 0 % Neutrophils # (Auto) 3.4 x10^3/uL Lymphocytes # (Auto) 1.2 x10^3/uL Monocytes # (Auto) 0.4 x10^3/uL Eosinophils # (Auto) 0.1 x10^3/uL Basophils # (Auto) 0.0 x10^3/uL Sodium Level 160 mmol/L Potassium Level 3.9 mmol/L Chloride Level 122 mmol/L Carbon Dioxide Level 31 mmol/L Anion Gap 7 Blood Urea Nitrogen 26 mg/dL Creatinine 2.6 mg/dL Estimated GFR (Cockcroft-Gault) 29.3 Glucose Level 299 mg/dL Calcium Level 9.0 mg/dL Test 06/28/20 05:00 06/28/20 05:30 SARS-CoV-2 Antigen (Rapid) Negative Sodium Level 155 mmol/L Potassium Level 3.6 mmol/L Chloride Level 119 mmol/L Carbon Dioxide Level 28 mmol/L Anion Gap 8 Blood Urea Nitrogen 23 mg/dL Creatinine 2.3 mg/dL Estimated GFR (Cockcroft-Gault) 33.8 Glucose Level 222 mg/dL Glucose (Fingerstick) 212 mg/dL Calcium Level 8.7 mg/dL Phosphorus Level 3.6 mg/dL Magnesium Level 2.0 mg/dL Triglycerides Level 139 mg/dL PE: GEN: NAD LUNGS: CTAB HEART: RRR ABD: dressing w/ blood, also blood on bedding NEURO/PSYCH: awake, does not verbalize A/P: Dementia, dysphagia - has PICC, TPN PEG dislodged, bleeding from site - surgery following -- ?silver nitrate - defer to surgery ?wound care Justicifation of Admission Dx: Justifications for Admission: Justification of Admission Dx: Yes Chronic Renal Failure: Intravenous Infusions (post surgical complication) RIAN PARRISH Jun 28, 2020 10:53
--- NOTE | 2020-06-28 11:01 | NUR ---
SW following. Spoke with RN and reviewed chart. Pt's dtr called and she has changed her mind back to [facility] as potential discharge plan since she can't visit pt in SNU per [facility]. SUDEEP explained that [facility] may not authorize acute rehab per pt's limited ability to participate in therapy. SW encouraged the to come to the hospital and be present during PT session (dtr working on transportation to get to the hospital) this afternoon to encourage pt to participate. Pt's dtr stated she still wants referral sent to [facility] and that pt does have VA benefits (dtr to provide VA benefit information today). SW waiting to hear back from Deepali from [facility] to see if they take VA insurance. SUDEEP also waiting on recommendations from PT/OT to have either [facility] or [facility] submit for insurance authorization. Coordinated care with rehab department as well as Kera from [facility]. SUDEEP following. Addendum: 06/28/20 at 1729 by KIM SHEETS [facility] takes VA. SUDEEP phoned and faxed a request for approval for acute rehab to the [facility] at request of pt's dtr, , (fax).
[2020-06-28 11:15] VITALS: BP 102/61
[2020-06-28] MEDS: TPN PER PHARMACY MC PRN ×2 (12:21→12:27)
--- NOTE | 2020-06-28 12:30 | NUR ---
Pharmacy TPN Dosing Note S: SHEKHAR DENISE is a 74 year old M Currently receiving Central Continuous TPN started 06/27/20 B:Pertinent PMH: PEG MALFUNCTION Height: 5 feet, 10 inches Weight: 95.4 kg Current diet: NPO LABS: Sodium: 155 Potassium: 3.6 Chloride: 119 Calcium: 8.7 Corrected Calcium: 9.74 Magnesium: 2.0 CO2: 28 SCr: 2.3 Glucose: 212/313 Albumin: 2.7 AST: 18 ALT: 37 TPN FORMULA: TPN TYPE: Central Continuous AMINO ACIDS: 80 gm DEXTROSE: 270 gm LIPIDS: 30 gm SODIUM CHLORIDE: - mEq SODIUM ACETATE: - mEq SODIUM PHOSPHATE: - mmol POTASSIUM CHLORIDE: - mEq POTASSIUM ACETATE: 70 mEq POTASSIUM PHOSPHATE: 13.6 mmol MAGNESIUM: 10 mEq CALCIUM: 10 mEq INSULIN: 10 units MULTIPLE VITAMIN: 10 ml TRACE ELEMENTS: 1 ml(s) TPN PLAN: NA & CL ARE BETTER, K DECREASE/WILL UP KACETATE TO 70 MEQ AND ADD 10 UNITS INSULIN. R: Continue TPN AT 85 ML/HR Will monitor electrolytes, glucose, and tolerance to TPN. VENTURA ROMERO [facility], 06/28/20 [id number]
--- NOTE | 2020-06-28 14:48 | PDOC2 ---
CONSULT Date of Consult Date of Consult DATE: 06/28/20 TIME: 14:40 Reason for Consult Reason for Consult: MAIRA AND HIGH NA Referring Physician Referring Physician: MILLA MEDINA Identification/Chief Complaint Chief Complaint CONFUSION, PULLED OUT PEG TUBE Source Source: Chart review History of Present Illness Reason for Visit: THIS IS A 74 YR WITH DEMENTIA. HX OF PEG TUBE EARLY THIS MONTH BUT PULLED OUT HIS PEG TUBE, PT UNABLE TO GIVE HX. HAS HX OF CKD STAGE 3 WITH BASELINE CR OF ABOUT 2.2 ON AVG. CR OF 2.7 ON ADMIT WITH NA OF 161. ACID BALANCE C/W MET AL KALOSIS. Past Medical History Cardiovascular: CAD, HTN, NE, Hyperlipidemia, Other Pulmonary: COPD CENTRAL NERVOUS SYSTEM: Dementia GI: Diverticulosis, GERD Heme/Onc: No pertinent hx Hepatobiliary: No pertinent hx Psych: Bipolar, Other Musculoskeletal: Osteoarthritis Rheumatologic: No pertinent hx Infectious disease: No pertinent hx Renal/: Chronic renal insuff Endocrine: No pertinent hx Past Surgical History Past Surgical History: CABG, Other Family History Family History: Hypertension, Family History Unknown Social History Lives: with Family Domestic Violence: Neg Current Problem List Problem List Problems Medical Problems: (1) Alzheimer's dementia Status: Acute (2) Anemia Status: Acute (3) CKD (chronic kidney disease) Status: Acute (4) Hypernatremia Status: Acute (5) PEG tube malfunction Status: Acute Current Medications Current Medications Current Medications Piperacillin Sod/ Tazobactam Sod 4.5 gm/Sodium Chloride 100 ml @ 200 mls/hr 1X ONCE IV Last administered on 06/26/20at 15:09; Start 06/26/20 at 14:45; Stop 06/26/20 at 15:14; Status DC Pantoprazole Sodium (PROTONIX VIAL for IV PUSH) 40 mg DAILY IVP Last administered on 06/26/20at 16:58; Start 06/26/20 at 16:30; Stop 06/26/20 at 20:20; Status DC Pantoprazole Sodium (PROTONIX VIAL for IV PUSH) 40 mg DAILYAC IVP Last administered on 06/28/20at 09:43; Start 06/27/20 at 07:30 Insulin Human Lispro (HumaLOG) 0-9 UNITS Q6HRS SQ Last administered on 06/28/20at 13:03; Start 06/27/20 at 00:00 Dextrose (Dextrose 50%-Water Syringe) 12.5 gm PRN Q15MIN PRN IV SEE COMMENTS; Start 06/26/20 at 22:15 Dextrose/Sodium Chloride 1,000 ml @ 140 mls/hr Q7H9M IV Last administered on 06/27/20at 12:30; Start 06/26/20 at 22:15; Stop 06/27/20 at 19:30; Status DC Info (Tpn Per Pharmacy) 1 each PRN DAILY PRN MC SEE COMMENTS Last administered on 06/28/20at 12:27; Start 06/27/20 at 09:15 Potassium Acetate 50 meq/Potassium Phosphate 13.6 mmol/Magnesium Sulfate 10 meq/ Calcium Gluconate 10 meq/ Multivitamins 10 ml/Chromium/ Copper/Manganese/ Seleni/Zn 1 ml/ Total Parenteral Nutrition/Amino Acids/Dextrose/ Fat Emulsion Intravenous 2,040 ml @ 85 mls/hr TPN CONT IV Last administered on 06/27/20at 21:18; Start 06/27/20 at 22:00; Stop 06/28/20 at 21:59 Lidocaine HCl (Buffered Lidocaine 1%) 3 ml STK-MED ONCE .ROUTE ; Start 06/27/20 at 12:54; Stop 06/27/20 at 12:55; Status DC Lidocaine HCl (Buffered Lidocaine 1%) 3 ml 1X ONCE INJ Last administered on 06/27/20at 13:15; Start 06/27/20 at 13:15; Stop 06/27/20 at 13:16; Status DC Dextrose 1,000 ml @ 140 mls/hr Q7H9M IV Last administered on 06/28/20at 05:26; Start 06/27/20 at 13:45; Stop 06/28/20 at 13:05; Status DC Insulin Glargine (Lantus Syringe) 40 unit QHS SQ Last administered on 06/27/20at 21:26; Start 06/27/20 at 21:00 Potassium Acetate 70 meq/Potassium Phosphate 13.6 mmol/Magnesium Sulfate 10 meq/ Calcium Gluconate 10 meq/ Multivitamins 10 ml/Chromium/ Copper/Manganese/ Seleni/Zn 1 ml/ Insulin Human Regular 10 unit/ Total Parenteral Nutrition/Amino Acids/Dextrose/ Fat Emulsion Intravenous 2,040 ml @ 85 mls/hr TPN CONT IV ; Start 06/28/20 at 22:00; Stop 06/29/20 at 21:59 Active Scripts Active [Acetaminophen] 500 MG Tablet 500 Mg PO PRN Q6HRS PRN Coreg (Carvedilol) 6.25 Mg Tablet 6.25 Mg PO BIDWMEALS Reported Famotidine 20 Mg Tablet 20 Mg PO BIDAC Levemir Flextouch (Insulin Detemir) 100 Unit/1 Ml Insuln.pen 42 Unit SQ TIDAC Flonase Allergy Relief (Fluticasone Propionate) 9.9 Ml [place].susp 2 Sprays NS DAILY Aspirin 81 Mg Tab.chew 1 Tab PO DAILY Atorvastatin Calcium 80 Mg Tablet 1 Tab PO HS Calcium (Calcium Carbonate) 500 Mg Tablet 500 Mg PO BID92 Vitamin D (Cholecalciferol (Vitamin D3)) 2,000 Unit Capsule 2,000 Unit PO BID94 Trazodone Hcl 50 Mg Tablet 50 Mg PO PRN QHS PRN [place] Carbonate 300 Mg Tablet 300 Mg PO BID Allergies Allergies: Coded Allergies: No Known Drug Allergies (Unverified , 06/23/20) ROS Review of System UNABLE TO OBTAIN Physical Exam General: Cooperative, No acute distress HEENT: Atraumatic, Other (DRY MUCOSA) Lungs: Clear to auscultation Heart: Regular rate Abdomen: Normal bowel sounds Extremities: No clubbing Skin: No breakdown Neuro: Other (CONFUSED) Psych/Mental Status: Other (CONFUSED) MUSCULOSKELETAL: No joint tenderness, No deformity, No swelling Vitals VITALS Vital Signs Date Time Temp Pulse Resp B/P (MAP) Pulse Ox O2 Delivery O2 Flow Rate FiO2 06/28/20 11:15 98.1 87 18 102/61 (75) 98 Room Air 98.1 Labs Labs Laboratory Tests Test 06/26/20 22:56 06/27/20 05:51 06/27/20 11:36 06/27/20 12:30 Glucose (Fingerstick) 253 mg/dL (70-99) 295 mg/dL (70-99) 263 mg/dL (70-99) White Blood Count 5.2 x10^3/uL (4.0-11.0) Red Blood Count 3.73 x10^6/uL (4.30-5.70) Hemoglobin 11.0 g/dL (13.0-17.5) Hematocrit 34.9 % (39.0-53.0) Mean Corpuscular Volume 94 fL (79-100) Mean Corpuscular Hemoglobin 30 pg (25-35) Mean Corpuscular Hemoglobin Concent 32 g/dL (31-37) Red Cell Distribution Width 17.3 % (11.5-14.5) Platelet Count 87 x10^3/uL (140-400) Neutrophils (%) (Auto) 66 % (31-73) Lymphocytes (%) (Auto) 24 % (24-48) Monocytes (%) (Auto) 8 % (0-9) Eosinophils (%) (Auto) 3 % (0-3) Basophils (%) (Auto) 0 % (0-3) Neutrophils # (Auto) 3.4 x10^3/uL (1.8-7.7) Lymphocytes # (Auto) 1.2 x10^3/uL (1.0-4.8) Monocytes # (Auto) 0.4 x10^3/uL (0.0-1.1) Eosinophils # (Auto) 0.1 x10^3/uL (0.0-0.7) Basophils # (Auto) 0.0 x10^3/uL (0.0-0.2) Sodium Level 160 mmol/L (136-145) Potassium Level 3.9 mmol/L (3.5-5.1) Chloride Level 122 mmol/L (98-107) Carbon Dioxide Level 31 mmol/L (21-32) Anion Gap 7 (6-14) Blood Urea Nitrogen 26 mg/dL (8-26) Creatinine 2.6 mg/dL (0.7-1.3) Estimated GFR (Cockcroft-Gault) 29.3 Glucose Level 299 mg/dL (70-99) Calcium Level 9.0 mg/dL (8.5-10.1) Test 06/27/20 18:37 06/28/20 00:22 06/28/20 05:00 06/28/20 05:30 Glucose (Fingerstick) 236 mg/dL (70-99) 307 mg/dL (70-99) 212 mg/dL (70-99) SARS-CoV-2 Antigen (Rapid) Negative (NEGATIVE) Sodium Level 155 mmol/L (136-145) Potassium Level 3.6 mmol/L (3.5-5.1) Chloride Level 119 mmol/L (98-107) Carbon Dioxide Level 28 mmol/L (21-32) Anion Gap 8 (6-14) Blood Urea Nitrogen 23 mg/dL (8-26) Creatinine 2.3 mg/dL (0.7-1.3) Estimated GFR (Cockcroft-Gault) 33.8 Glucose Level 222 mg/dL (70-99) Calcium Level 8.7 mg/dL (8.5-10.1) Phosphorus Level 3.6 mg/dL (2.6-4.7) Magnesium Level 2.0 mg/dL (1.8-2.4) Triglycerides Level 139 mg/dL (0-150) Test 06/28/20 11:49 Glucose (Fingerstick) 331 mg/dL (70-99) Laboratory Tests Test 06/27/20 18:37 06/28/20 00:22 06/28/20 05:00 06/28/20 05:30 Glucose (Fingerstick) 236 mg/dL (70-99) 307 mg/dL (70-99) 212 mg/dL (70-99) SARS-CoV-2 Antigen (Rapid) Negative (NEGATIVE) Sodium Level 155 mmol/L (136-145) Potassium Level 3.6 mmol/L (3.5-5.1) Chloride Level 119 mmol/L (98-107) Carbon Dioxide Level 28 mmol/L (21-32) Anion Gap 8 (6-14) Blood Urea Nitrogen 23 mg/dL (8-26) Creatinine 2.3 mg/dL (0.7-1.3) Estimated GFR (Cockcroft-Gault) 33.8 Glucose Level 222 mg/dL (70-99) Calcium Level 8.7 mg/dL (8.5-10.1) Phosphorus Level 3.6 mg/dL (2.6-4.7) Magnesium Level 2.0 mg/dL (1.8-2.4) Triglycerides Level 139 mg/dL (0-150) Test 06/28/20 11:49 Glucose (Fingerstick) 331 mg/dL (70-99) Assessment/Plan Assessment/Plan IMP MAIRA WITH CR OF 2.7 CKD STAGE 3 WITH CR OF ABOUT 2.2 EXTRACELLULAR VOLUME DEPLETION DISLODGED PEG TUBE SEVERE HYPERNATREMIA MALNUTRTION DM II PLAN HYDRATION TPN STARTED NEED SERNA FOR ACCURATE I/O NEED TO RULE OUT LITHIUM RELATED POLYURIA/DI WILL CHECK URINE OSMOLALITY AND URINE LYTES WILL FOLLOW EWA ESTRADA MD Jun 28, 2020 14:48
--- NOTE | 2020-06-28 15:03 | PDOC ---
[employer] PROGRESS NOTE Date of Service DOS: DATE: 06/28/20 TIME: 15:02 Chief Complaint Chief Complaint Acute metabolic encephalopathy NOS Acute delirium or confusional state due to infectious versus toxic versus metabolic disturbance Dislodged PEG tube Acute severe hypernatremia likely due to decreased p.o. intake and possible nephrogenic DI Severe malnutrition Acute on chronic renal failure Thrombocytopenia Normocytic anemia Hyperglycemia Admit to medicine GI consult Surgery consultedrecommended no surgical procedure at this time and will wait for PEG ostomy to close off before doing formal surgical procedure. We will start TPN for now Continue IV TPN Nephrology consulted for elevated sodium and acute renal failure versus CKD Pending urine electrolytes Continue D5W at 140 for now Trend sodium levels daily Consider dementia prevention protocol Provide adequate lighting (open curtains during the day, turn the lights off at night) Provide frequent personal contact with family, friends, and staff or TV Rehab screening ordered IV Haldol as needed for agitation, consider sitter as needed if non-redirectable agitation Avoid physical restraints, catheters or tubes, and benzodiazepines Nutrition consult if there is malnutrition or concern for vitamin deficiencies Continue IV fluids Hold DVT prophylaxis for now IV Protonix GI prophylaxis ADA diet Full code Discussed with RN and SW Dispo pending GI evaluation is the [facility] History of Present Illness History of Present Illness 74-year-old male with past medical history of CABG, severe dementia, GERD, dyslipidemia, CKD, vascular disease, recent PEG tube placement on 06/21/2020 who comes to the ED because he recently pulled out his PEG tube. Daughter states that the PEG tube was leaking and they had to remove the abdominal binder. Moments later when they came back to try to feed him or given his medications through the PEG tube they realized that the PEG tube was already in his hand. Patient was recently discharged from the hospital after the PEG tube was placed. All of the history was obtained from the daughter and the who lives with the patient. Nursing facility options were discussed with the family at the last admission however they did not want the patient to go to a facility at that time. There was also no discussion for palliative care either. At that time, discussion was made to prolong life at that time and therefore a PEG tube was placed. Daughter at bedside states that the patient is fairly close to his baseline however he appears to be fairly weak. Patient is able to respond with one-word responses. Patient is alert and awake and oriented x1. Patient is not able to provide any parts of his history. Family meeting was held outside patient's room with and daughter. At this point, states that most of the patient's condition happened so quickly that the family did not have time to discuss hospice options or palliative care r oute. understands that the patient's condition is very severe and he has very poor prognosis. It was discussed in detail whether she should choose options for quality of life versus life prolonging measurements. At this time, family will continue to have discussions amongst himself to decide further planning for the patient. 06/27/2020 Patient seen and examined bedside today. No dramatic changes in his mental status. Responding appropriately with context of his severe dementia. Patient's chart, labs, images were reviewed and discussed with RN 06/28/2020 No acute events overnight. Patient seen and examined bedside today. Improved mental status today and responding appropriately. Patient's chart, labs, images were reviewed and discussed with RN Vitals/I&O Vitals/I&O: Vital Signs Date Time Temp Pulse Resp B/P (MAP) Pulse Ox O2 Delivery O2 Flow Rate FiO2 06/28/20 11:15 98.1 87 18 102/61 (75) 98 Room Air 98.1 I & O 06/27/20 06/27/20 06/28/20 15:00 23:00 07:00 Intake Total 0 ml 0 ml 0 ml Balance 0 ml 0 ml 0 ml Physical Exam Physical Exam: GEN: No apparent distress. Alert and awake. Severely demented. Age- appropriate appearance HEENT: Normal cephalic, atraumatic, external auditory canals are patent NECK: Supple, no JVD, no thyromegaly was noted LUNGS: Bilateral clear to auscultation HEART: RRR, S1, S2 present. Peripheral pulses intact, no obvious murmurs noted ABDOMEN: PEG tube opening with clotted blood. Abdomen is soft and nontender to palpation. Bowel sounds are heard. There is no purulence draining or active bleeding at this time. EXTREMITIES: Without clubbing, cyanosis, or edema. Pedal pulses intact. Negative Homans sign General: Cooperative, No acute distress Heart: Regular rate Lungs: Clear Abdomen: Normal bowel sounds Extremities: No clubbing Skin: No breakdown Labs Labs: Laboratory Tests Test 06/27/20 18:37 06/28/20 00:22 06/28/20 05:00 06/28/20 05:30 Glucose (Fingerstick) 236 mg/dL (70-99) 307 mg/dL (70-99) 212 mg/dL (70-99) SARS-CoV-2 Antigen (Rapid) Negative (NEGATIVE) Sodium Level 155 mmol/L (136-145) Potassium Level 3.6 mmol/L (3.5-5.1) Chloride Level 119 mmol/L (98-107) Carbon Dioxide Level 28 mmol/L (21-32) Anion Gap 8 (6-14) Blood Urea Nitrogen 23 mg/dL (8-26) Creatinine 2.3 mg/dL (0.7-1.3) Estimated GFR (Cockcroft-Gault) 33.8 Glucose Level 222 mg/dL (70-99) Calcium Level 8.7 mg/dL (8.5-10.1) Phosphorus Level 3.6 mg/dL (2.6-4.7) Magnesium Level 2.0 mg/dL (1.8-2.4) Triglycerides Level 139 mg/dL (0-150) Test 06/28/20 11:49 Glucose (Fingerstick) 331 mg/dL (70-99) Assessment and Plan Assessmemt and Plan Problems Medical Problems: (1) Alzheimer's dementia Status: Acute (2) Anemia Status: Acute (3) CKD (chronic kidney disease) Status: Acute (4) Hypernatremia Status: Acute (5) PEG tube malfunction Status: Acute Comment Review of Relevant I have reviewed the following items miles (where applicable) has been applied. Medications: Current Medications Medications (Trade) Dose Ordered Sig/Quinn Route PRN Reason Start Time Stop Time Status Last Admin Dose Admin Potassium Acetate 50 meq/Potassium Phosphate 13.6 mmol/Magnesium Sulfate 10 meq/ Calcium Gluconate 10 meq/ Multivitamins 10 ml/Chromium/ Copper/Manganese/ Seleni/Zn 1 ml/ Total Parenteral Nutrition/Amino Acids/Dextrose/ Fat Emulsion Intravenous 2,040 ml @ 85 mls/hr TPN CONT IV 06/27/20 22:00 06/28/20 21:59 06/27/20 21:18 Insulin Glargine (Lantus Syringe) 40 unit QHS SQ 06/27/20 21:00 06/27/20 21:26 MILLA MEDINA MD Jun 28, 2020 15:03
[2020-06-28 15:15] VITALS: BP 104/65
--- NOTE | 2020-06-28 15:23 | PDOC ---
SURGICAL PROGRESS NOTE DATE: 06/28/20 TIME: 15:21 Subjective Pt appears comfortable Vital Signs Vital Signs Date Time Temp Pulse Resp B/P (MAP) Pulse Ox O2 Delivery O2 Flow Rate FiO2 06/28/20 11:15 98.1 87 18 102/61 (75) 98 Room Air 98.1 I&O Intake and Output 06/28/20 07:00 Intake Total 0 ml Balance 0 ml Intake Oral 0 ml # Voids 3 General: Alert, No acute distress Abdomen: Soft, No tenderness, Other (dressing intact) Labs Laboratory Tests Test 06/26/20 22:56 06/27/20 05:51 06/27/20 11:36 06/27/20 12:30 Glucose (Fingerstick) 253 mg/dL (70-99) 295 mg/dL (70-99) 263 mg/dL (70-99) White Blood Count 5.2 x10^3/uL (4.0-11.0) Red Blood Count 3.73 x10^6/uL (4.30-5.70) Hemoglobin 11.0 g/dL (13.0-17.5) Hematocrit 34.9 % (39.0-53.0) Mean Corpuscular Volume 94 fL (79-100) Mean Corpuscular Hemoglobin 30 pg (25-35) Mean Corpuscular Hemoglobin Concent 32 g/dL (31-37) Red Cell Distribution Width 17.3 % (11.5-14.5) Platelet Count 87 x10^3/uL (140-400) Neutrophils (%) (Auto) 66 % (31-73) Lymphocytes (%) (Auto) 24 % (24-48) Monocytes (%) (Auto) 8 % (0-9) Eosinophils (%) (Auto) 3 % (0-3) Basophils (%) (Auto) 0 % (0-3) Neutrophils # (Auto) 3.4 x10^3/uL (1.8-7.7) Lymphocytes # (Auto) 1.2 x10^3/uL (1.0-4.8) Monocytes # (Auto) 0.4 x10^3/uL (0.0-1.1) Eosinophils # (Auto) 0.1 x10^3/uL (0.0-0.7) Basophils # (Auto) 0.0 x10^3/uL (0.0-0.2) Sodium Level 160 mmol/L (136-145) Potassium Level 3.9 mmol/L (3.5-5.1) Chloride Level 122 mmol/L (98-107) Carbon Dioxide Level 31 mmol/L (21-32) Anion Gap 7 (6-14) Blood Urea Nitrogen 26 mg/dL (8-26) Creatinine 2.6 mg/dL (0.7-1.3) Estimated GFR (Cockcroft-Gault) 29.3 Glucose Level 299 mg/dL (70-99) Calcium Level 9.0 mg/dL (8.5-10.1) Test 06/27/20 18:37 06/28/20 00:22 06/28/20 05:00 06/28/20 05:30 Glucose (Fingerstick) 236 mg/dL (70-99) 307 mg/dL (70-99) 212 mg/dL (70-99) SARS-CoV-2 Antigen (Rapid) Negative (NEGATIVE) Sodium Level 155 mmol/L (136-145) Potassium Level 3.6 mmol/L (3.5-5.1) Chloride Level 119 mmol/L (98-107) Carbon Dioxide Level 28 mmol/L (21-32) Anion Gap 8 (6-14) Blood Urea Nitrogen 23 mg/dL (8-26) Creatinine 2.3 mg/dL (0.7-1.3) Estimated GFR (Cockcroft-Gault) 33.8 Glucose Level 222 mg/dL (70-99) Calcium Level 8.7 mg/dL (8.5-10.1) Phosphorus Level 3.6 mg/dL (2.6-4.7) Magnesium Level 2.0 mg/dL (1.8-2.4) Triglycerides Level 139 mg/dL (0-150) Test 06/28/20 11:49 Glucose (Fingerstick) 331 mg/dL (70-99) Laboratory Tests Test 06/27/20 18:37 06/28/20 00:22 06/28/20 05:00 06/28/20 05:30 Glucose (Fingerstick) 236 mg/dL (70-99) 307 mg/dL (70-99) 212 mg/dL (70-99) SARS-CoV-2 Antigen (Rapid) Negative (NEGATIVE) Sodium Level 155 mmol/L (136-145) Potassium Level 3.6 mmol/L (3.5-5.1) Chloride Level 119 mmol/L (98-107) Carbon Dioxide Level 28 mmol/L (21-32) Anion Gap 8 (6-14) Blood Urea Nitrogen 23 mg/dL (8-26) Creatinine 2.3 mg/dL (0.7-1.3) Estimated GFR (Cockcroft-Gault) 33.8 Glucose Level 222 mg/dL (70-99) Calcium Level 8.7 mg/dL (8.5-10.1) Phosphorus Level 3.6 mg/dL (2.6-4.7) Magnesium Level 2.0 mg/dL (1.8-2.4) Triglycerides Level 139 mg/dL (0-150) Test 06/28/20 11:49 Glucose (Fingerstick) 331 mg/dL (70-99) I have reviewed the following CT without evidence of pneumoperitoneum Problem List Problems Medical Problems: (1) Alzheimer's dementia Status: Acute (2) Anemia Status: Acute (3) CKD (chronic kidney disease) Status: Acute (4) Hypernatremia Status: Acute (5) PEG tube malfunction Status: Acute Assessment/Plan will plan elective g-tube placement in one month. D/w R/R/B/A with pt's supportive . Favor minimal manipulation of wound. Will need alternative nutrition prior to surgery. Justicifation of Admission Dx: Justifications for Admission: Justification of Admission Dx: Yes Chronic Renal Failure: Intravenous Infusions (post surgical complication) YOHANA BRANHAM MD Jun 28, 2020 15:23
[2020-06-28 19:00] VITALS: BP 104/48
[2020-06-28] MEDS: INSULIN GLARGINE SYRINGE. SQ SCH (21:42)
[2020-06-28] MEDS ORDERED: TOTAL PARENTERAL NUTRITION IV SCH ×10 (22:00)
[2020-06-28] MEDS ORDERED: DEXTROSE 70% IV SCH ×10 (22:00)
[2020-06-28] MEDS ORDERED: AMINO ACID IV SCH ×10 (22:00)
[2020-06-28] MEDS ORDERED: [UNRECOGNIZED DRUG - OTHER] IV SCH ×10 (22:00)
[2020-06-28 23:00] VITALS: BP 116/95
[2020-06-29] MEDS: INSULIN LISPRO 300 UNITS/3 ML VIAL. SQ SCH ×4 (00:18→18:43)
[2020-06-29 03:00] VITALS: BP 116/69
[2020-06-29 05:35] LABS: CALCIUM 8.5 mg/dL (8.5-10.1); CREATININE 2.4 mg/dL (0.7-1.3); GFR 32.2; MAGNESIUM 2.3 mg/dL (1.8-2.4); PHOSPHORUS 3.2 mg/dL (2.6-4.7); POTASSIUM 3.8 mmol/L (3.5-5.1)
[2020-06-29 07:00] VITALS: BP 118/58
[2020-06-29] MEDS ORDERED: INSULIN GLARGINE SYRINGE. SQ SCH (09:00)
[2020-06-29] MEDS: PANTOPRAZOLE IV PUSH 40 MG VIAL. IVP SCH (09:56)
--- NOTE | 2020-06-29 11:13 | PDOC ---
Date of Service: DATE: 06/29/20 TIME: 11:12 Subjective: Subjective: Say hi. Objective: Objective: D/w nurse - shift supervisor rn changed dressing - was saturated. Had abd binder yesterday but gets restless at night and takes it off. Vital Signs: Vital Signs Date Time Temp Pulse Resp B/P (MAP) Pulse Ox O2 Delivery O2 Flow Rate FiO2 06/29/20 07:00 98.4 81 18 118/58 (78) 95 Room Air 98.4 Labs: Laboratory Tests Test 06/28/20 11:49 06/28/20 17:30 06/29/20 00:08 06/29/20 06:07 Glucose (Fingerstick) 331 mg/dL (70-99) 344 mg/dL (70-99) 291 mg/dL (70-99) 292 mg/dL (70-99) Test 06/29/20 08:59 Glucose (Fingerstick) 205 mg/dL (70-99) PE: GEN: NAD LUNGS: CTAB HEART: RRR ABD: dressing dry NEURO/PSYCH: awake A/P: Dementia, dysphagia -- Continue TPN til possible surgical G tube placement in 1 month. Justicifation of Admission Dx: Justifications for Admission: Justification of Admission Dx: Yes Chronic Renal Failure: Intravenous Infusions (post surgical complication) RIAN PARRISH Jun 29, 2020 11:13
[2020-06-29 11:15] VITALS: BP 121/63
[2020-06-29] MEDS: TPN PER PHARMACY MC PRN ×2 (11:36→11:40)
--- NOTE | 2020-06-29 11:41 | NUR ---
Pharmacy TPN Dosing Note S: SHEKHAR DENISE is a 74 year old M Currently receiving Central Continuous TPN started 06/27/20 B:Pertinent PMH: PEG MALFUNCTION. Continue TPH till possible G-Tube placement Height: 5 feet, 10 inches Weight: 95.4 kg Current diet: NPO LABS: Sodium: 155 Potassium: 3.8 Chloride: 117 Calcium: 8.5 Corrected Calcium: 9.54 Magnesium: 2.3 CO2: 26 SCr: 2.4 Glucose: 205/248 Albumin: 2.7 AST: 18 ALT: 37 TPN FORMULA: TPN TYPE: Central Continuous AMINO ACIDS: 80 gm DEXTROSE: 270 gm LIPIDS: 30 gm POTASSIUM ACETATE: 70 mEq POTASSIUM PHOSPHATE: 13.6 mmol MAGNESIUM: 10 mEq CALCIUM: 10 mEq INSULIN: 15 units MULTIPLE VITAMIN: 10 ml TRACE ELEMENTS: 1 ml(s) TPN PLAN: Lytes are stable, though NA+ is still high. Increase Regular insulin to 15 units/bag. R: Change TPN to above formula. Will monitor electrolytes, glucose, and tolerance to TPN. Damian Sanchez [facility], 06/29/20 1148
--- NOTE | 2020-06-29 11:43 | PDOC ---
Renal-Progress Notes Subjective Notes Notes CONFUSED History of Present Illness Hx of present illness STABLE Vitals Vitals Vital Signs Date Time Temp Pulse Resp B/P (MAP) Pulse Ox O2 Delivery O2 Flow Rate FiO2 06/29/20 11:15 97.9 89 18 121/63 (82) 96 Room Air 97.9 Weight Weight [ ] I.O. Intake and Output Intake and Output 06/29/20 07:00 Intake Total 0 ml Output Total 1625 ml Balance -1625 ml Intake Oral 0 ml Output Urine Total 1625 ml # Voids 2 # Bowel Movements 1 Labs Labs Laboratory Tests Test 06/28/20 11:49 06/28/20 17:30 06/29/20 00:08 06/29/20 04:15 Glucose (Fingerstick) 331 mg/dL (70-99) 344 mg/dL (70-99) 291 mg/dL (70-99) Sodium Level 155 mmol/L (136-145) Potassium Level 3.8 mmol/L (3.5-5.1) Chloride Level 117 mmol/L (98-107) Carbon Dioxide Level 26 mmol/L (21-32) Anion Gap 12 (6-14) Blood Urea Nitrogen 28 mg/dL (8-26) Creatinine 2.4 mg/dL (0.7-1.3) Estimated GFR (Cockcroft-Gault) 32.2 Glucose Level 292 mg/dL (70-99) Calcium Level 8.5 mg/dL (8.5-10.1) Phosphorus Level 3.2 mg/dL (2.6-4.7) Magnesium Level 2.3 mg/dL (1.8-2.4) Test 06/29/20 06:07 06/29/20 08:59 06/29/20 11:02 Glucose (Fingerstick) 292 mg/dL (70-99) 205 mg/dL (70-99) 248 mg/dL (70-99) Micro Micro Microbiology 06/26/20 Urine Culture - Final, Complete 06/26/20 Blood Culture - Preliminary, Resulted NO GROWTH AFTER 2 DAYS Review of Systems Constitutional: yes: other (UNABLE TO OBTAIN) Physical Exam General Appearance: no apparent distress Skin: warm Respiratory: decreased breath sounds Heart: S1S2 Abdomen: soft, bowel sounds present Genitourinary: bladder flat Extremities: pulses present Assessment Assessment IMP MAIRA WITH CR OF 2.7 - IMPROVED TO 2.4 CKD STAGE 3 WITH CR OF ABOUT 2.2 EXTRACELLULAR VOLUME DEPLETION DISLODGED PEG TUBE SEVERE HYPERNATREMIA MALNUTRTION DM II PLAN HYDRATION TPN STARTED MAINTAIN SERNA FOR ACCURATE I/O CHECK URINE OSMOLALITY AND URINE LYTES PENDING WILL FOLLOW EWA ESTRADA MD Jun 29, 2020 11:43
--- NOTE | 2020-06-29 12:20 | NUR ---
SUDEEP following. Spoke with RN and reviewed chart. SUDEEP did send copies of pt's [facility] insurance cards to admitting. SUDEEP called [facility] to check on status of request for authorization for acute rehab at [facility] as they can mange the PICC and TPN. SUDEEP spoke with Adela in Dr. Megan Frank's office and faxed additional requested clinicals to [phone]. SUDEEP also phoned and faxed update clinicals to Deepali at [facility]. SUDEEP following. Addendum: 06/29/20 at 1442 by KIM SHEETS Phone call to [place] ([phone]) primary care clinic at [place] to check on status of acute rehab authorization request. Spoke with Arline who stated the authorization is pending physician approval. SUDEEP stated authorization is needed for discharge and that pt should be ready for discharge tomorrow, 06/30 pending authorization.
--- NOTE | 2020-06-29 14:45 | PDOC ---
SURGICAL PROGRESS NOTE DATE: 06/29/20 TIME: 14:43 Subjective Pt appears comfortable Vital Signs Vital Signs Date Time Temp Pulse Resp B/P (MAP) Pulse Ox O2 Delivery O2 Flow Rate FiO2 06/29/20 11:15 97.9 89 18 121/63 (82) 96 Room Air 97.9 I&O Intake and Output 06/29/20 07:00 Intake Total 0 ml Output Total 1625 ml Balance -1625 ml Intake Oral 0 ml Output Urine Total 1625 ml # Voids 2 # Bowel Movements 1 General: Alert Abdomen: Soft Labs Laboratory Tests Test 06/27/20 18:37 06/28/20 00:22 06/28/20 05:00 06/28/20 05:30 Glucose (Fingerstick) 236 mg/dL (70-99) 307 mg/dL (70-99) 212 mg/dL (70-99) SARS-CoV-2 Antigen (Rapid) Negative (NEGATIVE) Sodium Level 155 mmol/L (136-145) Potassium Level 3.6 mmol/L (3.5-5.1) Chloride Level 119 mmol/L (98-107) Carbon Dioxide Level 28 mmol/L (21-32) Anion Gap 8 (6-14) Blood Urea Nitrogen 23 mg/dL (8-26) Creatinine 2.3 mg/dL (0.7-1.3) Estimated GFR (Cockcroft-Gault) 33.8 Glucose Level 222 mg/dL (70-99) Calcium Level 8.7 mg/dL (8.5-10.1) Phosphorus Level 3.6 mg/dL (2.6-4.7) Magnesium Level 2.0 mg/dL (1.8-2.4) Triglycerides Level 139 mg/dL (0-150) Coronavirus (PCR) Not detected (Not Detected) Test 06/28/20 11:49 06/28/20 17:30 06/29/20 00:08 06/29/20 04:15 Glucose (Fingerstick) 331 mg/dL (70-99) 344 mg/dL (70-99) 291 mg/dL (70-99) Sodium Level 155 mmol/L (136-145) Potassium Level 3.8 mmol/L (3.5-5.1) Chloride Level 117 mmol/L (98-107) Carbon Dioxide Level 26 mmol/L (21-32) Anion Gap 12 (6-14) Blood Urea Nitrogen 28 mg/dL (8-26) Creatinine 2.4 mg/dL (0.7-1.3) Estimated GFR (Cockcroft-Gault) 32.2 Glucose Level 292 mg/dL (70-99) Calcium Level 8.5 mg/dL (8.5-10.1) Phosphorus Level 3.2 mg/dL (2.6-4.7) Magnesium Level 2.3 mg/dL (1.8-2.4) Test 06/29/20 06:07 06/29/20 08:59 06/29/20 11:02 Glucose (Fingerstick) 292 mg/dL (70-99) 205 mg/dL (70-99) 248 mg/dL (70-99) Laboratory Tests Test 06/28/20 17:30 06/29/20 00:08 06/29/20 04:15 06/29/20 06:07 Glucose (Fingerstick) 344 mg/dL (70-99) 291 mg/dL (70-99) 292 mg/dL (70-99) Sodium Level 155 mmol/L (136-145) Potassium Level 3.8 mmol/L (3.5-5.1) Chloride Level 117 mmol/L (98-107) Carbon Dioxide Level 26 mmol/L (21-32) Anion Gap 12 (6-14) Blood Urea Nitrogen 28 mg/dL (8-26) Creatinine 2.4 mg/dL (0.7-1.3) Estimated GFR (Cockcroft-Gault) 32.2 Glucose Level 292 mg/dL (70-99) Calcium Level 8.5 mg/dL (8.5-10.1) Phosphorus Level 3.2 mg/dL (2.6-4.7) Magnesium Level 2.3 mg/dL (1.8-2.4) Test 06/29/20 08:59 06/29/20 11:02 Glucose (Fingerstick) 205 mg/dL (70-99) 248 mg/dL (70-99) Problem List Problems Medical Problems: (1) Alzheimer's dementia Status: Acute (2) Anemia Status: Acute (3) CKD (chronic kidney disease) Status: Acute (4) Hypernatremia Status: Acute (5) PEG tube malfunction Status: Acute Assessment/Plan dislodged G-tube will plan elective replacement in one month. will sign off, but please call for questions. Justicifation of Admission Dx: Justifications for Admission: Justification of Admission Dx: Yes Chronic Renal Failure: Intravenous Infusions (post surgical complication) YOHANA BRANHAM MD Jun 29, 2020 14:44
[2020-06-29 15:06] VITALS: BP 125/60
[2020-06-29 19:00] VITALS: BP 120/60
--- NOTE | 2020-06-29 21:19 | PDOC ---
[employer] PROGRESS NOTE Date of Service DOS: DATE: 06/29/20 TIME: 21:16 Chief Complaint Chief Complaint Acute metabolic encephalopathy NOS Acute delirium or confusional state due to infectious versus toxic versus metabolic disturbance Dislodged PEG tube Acute severe hypernatremia likely due to decreased p.o. intake and possible nephrogenic DI Severe malnutrition Acute on chronic renal failure Thrombocytopenia Normocytic anemia Hyperglycemia Admit to medicine GI consult Surgery consultedrecommended no surgical procedure at this time and will wait for PEG ostomy to close off before doing formal surgical procedure. We will start TPN for now Continue IV TPN Nephrology consulted for elevated sodium and acute renal failure versus CKD Pending urine electrolytes Continue D5W at 140 for now Trend sodium levels daily Consider dementia prevention protocol Provide adequate lighting (open curtains during the day, turn the lights off at night) Provide frequent personal contact with family, friends, and staff or TV Rehab screening ordered IV Haldol as needed for agitation, consider sitter as needed if non-redirectable agitation Avoid physical restraints, catheters or tubes, and benzodiazepines Nutrition consult if there is malnutrition or concern for vitamin deficiencies Continue IV fluids heparin DVT prophylaxis IV Protonix GI prophylaxis ADA diet Full code Discussed with RN and SW Dispo pending GI evaluation is the [facility] History of Present Illness History of Present Illness 74-year-old male with past medical history of CABG, severe dementia, GERD, dyslipidemia, CKD, vascular disease, recent PEG tube placement on 06/21/2020 who comes to the ED because he recently pulled out his PEG tube. Daughter states that the PEG tube was leaking and they had to remove the abdominal binder. Mom ents later when they came back to try to feed him or given his medications through the PEG tube they realized that the PEG tube was already in his hand. Patient was recently discharged from the hospital after the PEG tube was placed. All of the history was obtained from the daughter and the who lives with the patient. Nursing facility options were discussed with the family at the last admission however they did not want the patient to go to a facility at that time. There was also no discussion for palliative care either. At that time, discussion was made to prolong life at that time and therefore a PEG tube was placed. Daughter at bedside states that the patient is fairly close to his baseline however he appears to be fairly weak. Patient is able to respond with one-word responses. Patient is alert and awake and oriented x1. Patient is not able to provide any parts of his history. Family meeting was held outside patient's room with and daughter. At this point, states that most of the patient's condition happened so quickly that the family did not have time to discuss hospice options or palliative care route. understands that the patient's condition is very severe and he has very poor prognosis. It was discussed in detail whether she should choose options for quality of life versus life prolonging measurements. At this time, family will continue to have discussions amongst himself to decide further planning for the patient. 06/27/2020 Patient seen and examined bedside today. No dramatic changes in his mental status. Responding appropriately with context of his severe dementia. Patient's chart, labs, images were reviewed and discussed with RN 06/28/2020 No acute events overnight. Patient seen and examined bedside today. Improved mental status today and responding appropriately. Patient's chart, labs, images were reviewed and discussed with RN 06/29/2020 No acute events overnight. Patient's chart, labs, images were reviewed and discussed with RN Vitals/I&O Vitals/I&O: Vital Signs Date Time Temp Pulse Resp B/P (MAP) Pulse Ox O2 Delivery O2 Flow Rate FiO2 06/29/20 19:00 98.6 78 19 120/60 (80) 99 Room Air 98.6 I & O 06/28/20 06/28/20 06/29/20 15:00 23:00 07:00 Intake Total 0 ml 0 ml Output Total 825 ml 800 ml Balance -825 ml -800 ml Physical Exam Physical Exam: GEN: No apparent distress. Alert and awake. Severely demented. Age- appropriate appearance HEENT: Normal cephalic, atraumatic, external auditory canals are patent NECK: Supple, no JVD, no thyromegaly was noted LUNGS: Bilateral clear to auscultation HEART: RRR, S1, S2 present. Peripheral pulses intact, no obvious murmurs noted ABDOMEN: PEG tube opening with clotted blood. Abdomen is soft and nontender to palpation. Bowel sounds are heard. There is no purulence draining or active bleeding at this time. EXTREMITIES: Without clubbing, cyanosis, or edema. Pedal pulses intact. Negative Homans sign General: Alert Heart: Regular rate Lungs: Clear Abdomen: Soft Extremities: No clubbing Skin: No breakdown Labs Labs: Laboratory Tests Test 06/29/20 00:08 06/29/20 04:15 06/29/20 06:07 06/29/20 08:59 Glucose (Fingerstick) 291 mg/dL (70-99) 292 mg/dL (70-99) 205 mg/dL (70-99) Sodium Level 155 mmol/L (136-145) Potassium Level 3.8 mmol/L (3.5-5.1) Chloride Level 117 mmol/L (98-107) Carbon Dioxide Level 26 mmol/L (21-32) Anion Gap 12 (6-14) Blood Urea Nitrogen 28 mg/dL (8-26) Creatinine 2.4 mg/dL (0.7-1.3) Estimated GFR (Cockcroft-Gault) 32.2 Glucose Level 292 mg/dL (70-99) Calcium Level 8.5 mg/dL (8.5-10.1) Phosphorus Level 3.2 mg/dL (2.6-4.7) Magnesium Level 2.3 mg/dL (1.8-2.4) Test 06/29/20 11:02 06/29/20 16:37 Glucose (Fingerstick) 248 mg/dL (70-99) 264 mg/dL (70-99) Assessment and Plan Assessmemt and Plan Problems Medical Problems: (1) Alzheimer's dementia Status: Acute (2) Anemia Status: Acute (3) CKD (chronic kidney disease) Status: Acute (4) Hypernatremia Status: Acute (5) PEG tube malfunction Status: Acute Comment Review of Relevant I have reviewed the following items miles (where applicable) has been applied. Medications: Current Medications Medications (Trade) Dose Ordered Sig/Quinn Route PRN Reason Start Time Stop Time Status Last Admin Dose Admin Potassium Acetate 70 meq/Potassium Phosphate 13.6 mmol/Magnesium Sulfate 10 meq/ Calcium Gluconate 10 meq/ Multivitamins 10 ml/Chromium/ Copper/Manganese/ Seleni/Zn 1 ml/ Insulin Human Regular 10 unit/ Total Parenteral Nutrition/Amino Acids/Dextrose/ Fat Emulsion Intravenous 2,040 ml @ 85 mls/hr TPN CONT IV 06/28/20 22:00 06/29/20 21:59 06/28/20 21:41 Insulin Glargine (Lantus Syringe) 40 unit QAM SQ 8/27/20 09:00 06/29/20 11:26 DC 06/29/20 10:00 Justifications for Admission Other Justification MILLA MEDINA MD Jun 29, 2020 21:19
[2020-06-29] MEDS ORDERED: DEXTROSE 70% IV SCH ×10 (22:00)
[2020-06-29] MEDS ORDERED: AMINO ACID IV SCH ×10 (22:00)
[2020-06-29] MEDS ORDERED: TOTAL PARENTERAL NUTRITION IV SCH ×10 (22:00)
[2020-06-29] MEDS ORDERED: [UNRECOGNIZED DRUG - OTHER] IV SCH ×10 (22:00)
[2020-06-29] MEDS: INSULIN GLARGINE SYRINGE. SQ SCH (22:09)
[2020-06-29 23:00] VITALS: BP 117/53
[2020-06-30] MEDS: INSULIN LISPRO 300 UNITS/3 ML VIAL. SQ SCH ×5 (00:58→23:51)
[2020-06-30 01:08] LABS: SODIUM, URINE <20 mmol/L (Not Estab.); UR POTASSIUM 32.5 mmol/L (Not Estab.)
[2020-06-30 03:00] VITALS: BP 127/65
[2020-06-30 05:31] LABS: CREATININE 2.2 mg/dL (0.7-1.3); GFR 35.6; MAGNESIUM 2.3 mg/dL (1.8-2.4); PHOSPHORUS 3.2 mg/dL (2.6-4.7)
[2020-06-30 07:00] VITALS: BP 102/44
[2020-06-30] MEDS: PANTOPRAZOLE IV PUSH 40 MG VIAL. IVP SCH (09:49)
[2020-06-30] MEDS: HEPARIN for SUB-Q USE 5,000 UNIT/ML VIAL. SQ SCH ×2 (10:02→23:47)
[2020-06-30] MEDS: INSULIN GLARGINE SYRINGE. SQ SCH ×2 (10:03→23:48)
[2020-06-30 10:50] VITALS: BP 99/58
--- NOTE | 2020-06-30 10:55 | PDOC ---
Date of Service: DATE: 06/30/20 TIME: 10:53 Objective: Vital Signs: Vital Signs Date Time Temp Pulse Resp B/P (MAP) Pulse Ox O2 Delivery O2 Flow Rate FiO2 06/30/20 10:50 97.6 89 18 99/58 (72) 97 Room Air 97.6 Labs: Laboratory Tests Test 06/29/20 11:02 06/29/20 16:37 06/30/20 00:42 06/30/20 03:40 Glucose (Fingerstick) 248 mg/dL 264 mg/dL 221 mg/dL Sodium Level 157 mmol/L Potassium Level 4.0 mmol/L Chloride Level 119 mmol/L Carbon Dioxide Level 27 mmol/L Anion Gap 11 Blood Urea Nitrogen 29 mg/dL Creatinine 2.2 mg/dL Estimated GFR (Cockcroft-Gault) 35.6 Glucose Level 221 mg/dL Calcium Level 9.0 mg/dL Phosphorus Level 3.2 mg/dL Magnesium Level 2.3 mg/dL Test 06/30/20 06:11 06/30/20 07:15 Glucose (Fingerstick) 202 mg/dL 206 mg/dL BLOOD CULTURE Preliminary NO GROWTH AFTER 3 DAYS PE: GEN: chronically ill LUNGS: CTAB HEART: RRR ABD: dressing dry NEURO/PSYCH: awake, does not verbalize A/P: Dementia, dysphagia - plan for G tube placement w/ surgery in 1 month -- Continue same per GI. Justicifation of Admission Dx: Justifications for Admission: Justification of Admission Dx: Yes Chronic Renal Failure: Intravenous Infusions (post surgical complication) RIAN PARRISH Jun 30, 2020 10:55
--- NOTE | 2020-06-30 11:40 | PDOC ---
Renal-Progress Notes Subjective Notes Notes NO NEW COMPLAINTS History of Present Illness Hx of present illness STABLE Vitals Vitals Vital Signs Date Time Temp Pulse Resp B/P (MAP) Pulse Ox O2 Delivery O2 Flow Rate FiO2 06/30/20 10:50 97.6 89 18 99/58 (72) 97 Room Air 97.6 Weight Weight [ ] I.O. Intake and Output Intake and Output 06/30/20 07:00 Intake Total 0 ml Output Total 2000 ml Balance -2000 ml Intake Oral 0 ml Output Urine Total 2000 ml # Bowel Movements 1 Labs Labs Laboratory Tests Test 06/29/20 16:37 06/30/20 00:42 06/30/20 03:40 06/30/20 06:11 Glucose (Fingerstick) 264 mg/dL (70-99) 221 mg/dL (70-99) 202 mg/dL (70-99) Sodium Level 157 mmol/L (136-145) Potassium Level 4.0 mmol/L (3.5-5.1) Chloride Level 119 mmol/L (98-107) Carbon Dioxide Level 27 mmol/L (21-32) Anion Gap 11 (6-14) Blood Urea Nitrogen 29 mg/dL (8-26) Creatinine 2.2 mg/dL (0.7-1.3) Estimated GFR (Cockcroft-Gault) 35.6 Glucose Level 221 mg/dL (70-99) Calcium Level 9.0 mg/dL (8.5-10.1) Phosphorus Level 3.2 mg/dL (2.6-4.7) Magnesium Level 2.3 mg/dL (1.8-2.4) Test 06/30/20 07:15 06/30/20 11:02 Glucose (Fingerstick) 206 mg/dL (70-99) 246 mg/dL (70-99) Micro Micro Microbiology 06/26/20 Urine Culture - Final, Complete 06/26/20 Blood Culture - Preliminary, Resulted NO GROWTH AFTER 3 DAYS Review of Systems Constitutional: yes: other (UNABLE TO OBTAIN) Physical Exam General Appearance: no apparent distress Skin: warm Respiratory: decreased breath sounds Heart: S1S2 Abdomen: soft, bowel sounds present Genitourinary: bladder flat Extremities: pulses present Assessment Assessment IMP MAIRA WITH CR OF 2.7 - IMPROVED TO 2.2 CKD STAGE 3 WITH CR OF ABOUT 2.2 EXTRACELLULAR VOLUME DEPLETION DISLODGED PEG TUBE SEVERE HYPERNATREMIA MALNUTRTION DM II PLAN HYDRATION TPN MAINTAIN SERNA FOR ACCURATE I/O WILL FOLLOW EWA ESTRADA MD Jun 30, 2020 11:40
--- NOTE | 2020-06-30 11:47 | PDOC ---
[employer] PROGRESS NOTE Date of Service DOS: DATE: 06/30/20 TIME: 11:45 Chief Complaint Chief Complaint Acute metabolic encephalopathy NOS-improved Dislodged PEG tube Acute severe hypernatremia likely due to decreased p.o. intake and possible nephrogenic DI Severe malnutrition Acute on chronic renal failure Thrombocytopenia Normocytic anemia Hyperglycemia Admit to medicine GI consult Surgery consultedrecommended no surgical procedure at this time and will wait for PEG ostomy to close off before doing formal surgical procedure. We will start TPN for now Continue IV TPN Nephrology consulted for elevated sodium and acute renal failure versus CKD Pending urine electrolytes Continue D5W at 140 for now Trend sodium levels daily Consider dementia prevention protocol Provide adequate lighting (open curtains during the day, turn the lights off at night) Provide frequent personal contact with family, friends, and staff or TV Rehab screening ordered IV Haldol as needed for agitation, consider sitter as needed if non-redirectable agitation Avoid physical restraints, catheters or tubes, and benzodiazepines Nutrition consult if there is malnutrition or concern for vitamin deficiencies Continue IV fluids heparin DVT prophylaxis IV Protonix GI prophylaxis ADA diet Full code Discussed with RN and SW Dispo pending GI evaluation is the [facility] History of Present Illness History of Present Illness 74-year-old male with past medical history of CABG, severe dementia, GERD, dyslipidemia, CKD, vascular disease, recent PEG tube placement on 06/21/2020 who comes to the ED because he recently pulled out his PEG tube. Daughter states that the PEG tube was leaking and they had to remove the abdominal binder. Moments later when they came back to try to feed him or given his medications through the PEG tube they realized that the PEG tube was already in his hand. Patient was recently discharged from the hospital after the PEG tube was placed. All of the history was obtained from the daughter and the who lives with the patient. Nursing facility options were discussed with the family at the last admission however they did not want the patient to go to a facility at that time. There was also no discussion for palliative care either. At that time, discussion was made to prolong life at that time and therefore a PEG tube was placed. Daughter at bedside states that the patient is fairly close to his baseline however he appears to be fairly weak. Patient is able to respond with one-word responses. Patient is alert and awake and oriented x1. Patient is not able to provide any parts of his history. Family meeting was held outside patient's room with and daughter. At this point, states that most of the patient's condition happened so quickly that the family did not have time to discuss hospice options or palliative care route. understands that the patient's condition is very severe and he has very poor prognosis. It was discussed in detail whether she should choose options for quality of life versus life prolonging measurements. At this time, family will continue to have discussions amongst himself to decide further planning for the patient. 06/27/2020 Patient seen and examined bedside today. No dramatic changes in his mental status. Responding appropriately with context of his severe dementia. Patient's chart, labs, images were reviewed and discussed with RN 06/28/2020 No acute events overnight. Patient seen and examined bedside today. Improved mental status today and responding appropriately. Patient's chart, labs, images were reviewed and discussed with RN 06/29/2020 No acute events overnight. Patient's chart, labs, images were reviewed and discussed with RN 06/30/2020 No acute events overnight. Patient seen and examined bedside. Mental status is stable. No acute delirium overnight. Patient's chart, labs, images were reviewed and discussed with RN Vitals/I&O Vitals/I&O: Vital Signs Date Time Temp Pulse Resp B/P (MAP) Pulse Ox O2 Delivery O2 Flow Rate FiO2 06/30/20 10:50 97.6 89 18 99/58 (72) 97 Room Air 97.6 I & O 06/29/20 06/29/20 06/30/20 15:00 23:00 07:00 Intake Total 0 ml 0 ml Output Total 1000 ml 1000 ml Balance -1000 ml -1000 ml Physical Exam Physical Exam: GEN: No apparent distress. Alert and awake. Severely demented. Age- appropriate appearance HEENT: Normal cephalic, atraumatic, external auditory canals are patent NECK: Supple, no JVD, no thyromegaly was noted LUNGS: Bilateral clear to auscultation HEART: RRR, S1, S2 present. Peripheral pulses intact, no obvious murmurs noted ABDOMEN: PEG tube opening with clotted blood. Abdomen is soft and nontender to palpation. Bowel sounds are heard. There is no purulence draining or active bleeding at this time. EXTREMITIES: Without clubbing, cyanosis, or edema. Pedal pulses intact. Negative Homans sign General: Alert Heart: Regular rate Lungs: Clear Abdomen: Soft Extremities: No clubbing Skin: No breakdown Labs Labs: Laboratory Tests Test 06/29/20 16:37 06/30/20 00:42 06/30/20 03:40 06/30/20 06:11 Glucose (Fingerstick) 264 mg/dL (70-99) 221 mg/dL (70-99) 202 mg/dL (70-99) Sodium Level 157 mmol/L (136-145) Potassium Level 4.0 mmol/L (3.5-5.1) Chloride Level 119 mmol/L (98-107) Carbon Dioxide Level 27 mmol/L (21-32) Anion Gap 11 (6-14) Blood Urea Nitrogen 29 mg/dL (8-26) Creatinine 2.2 mg/dL (0.7-1.3) Estimated GFR (Cockcroft-Gault) 35.6 Glucose Level 221 mg/dL (70-99) Calcium Level 9.0 mg/dL (8.5-10.1) Phosphorus Level 3.2 mg/dL (2.6-4.7) Magnesium Level 2.3 mg/dL (1.8-2.4) Test 06/30/20 07:15 06/30/20 11:02 Glucose (Fingerstick) 206 mg/dL (70-99) 246 mg/dL (70-99) Assessment and Plan Assessmemt and Plan Problems Medical Problems: (1) Alzheimer's dementia Status: Acute (2) Anemia Status: Acute (3) CKD (chronic kidney disease) Status: Acute (4) Hypernatremia Status: Acute (5) PEG tube malfunction Status: Acute Comment Review of Relevant I have reviewed the following items miles (where applicable) has been applied. Medications: Current Medications Medications (Trade) Dose Ordered Sig/Quinn Route PRN Reason Start Time Stop Time Status Last Admin Dose Admin Insulin Glargine (Lantus Syringe) 40 unit BID SQ 06/29/20 21:00 06/30/20 10:03 Potassium Acetate 70 meq/Potassium Phosphate 13.6 mmol/Magnesium Sulfate 10 meq/ Calcium Gluconate 10 meq/ Multivitamins 10 ml/Chromium/ Copper/Manganese/ Seleni/Zn 1 ml/ Insulin Human Regular 15 unit/ Total Parenteral Nutrition/Amino Acids/Dextrose/ Fat Emulsion Intravenous 2,040 ml @ 85 mls/hr TPN CONT IV 06/29/20 22:00 06/30/20 21:59 06/29/20 22:08 Heparin Sodium (Porcine) (Heparin Sodium) 5,000 unit Q12HR SQ 06/30/20 09:00 06/30/20 10:02 Justifications for Admission Other Justification MILLA MEDINA MD Jun 30, 2020 11:47
[2020-06-30] MEDS: TPN PER PHARMACY MC PRN (12:26)
--- NOTE | 2020-06-30 12:30 | NUR ---
Pharmacy TPN Dosing Note S: ELIOSHEKHAR ALAS is a 74 year old M Currently receiving Central Continuous TPN started 06/27/20 B:Pertinent PMH: PEG MALFUNCTION. Continue TPH till possible G-Tube placement Height: 5 feet, 10 inches Weight: 95.4 kg Current diet: NPO LABS: Sodium: 157 Potassium: 4.0 Chloride: 119 Calcium: 9.0 Corrected Calcium: 10.04 Magnesium: 2.3 CO2: 27 SCr: 2.2 Glucose: 206/246 Albumin: 2.7 AST: 18 ALT: 37 TPN FORMULA: TPN TYPE: Central Continuous AMINO ACIDS: 80 gm DEXTROSE: 270 gm LIPIDS: 30 gm POTASSIUM ACETATE: 70 mEq POTASSIUM PHOSPHATE: 13.6 mmol MAGNESIUM: 10 mEq CALCIUM: 10 mEq INSULIN: 15 units MULTIPLE VITAMIN: 10 ml TRACE ELEMENTS: 1 ml(s) TPN PLAN: Continue same TPN. R: Continue TPN Will monitor electrolytes, glucose, and tolerance to TPN. Damian Sanchez [facility], 06/30/20 [id number]
[2020-06-30 15:00] VITALS: BP 102/58
--- NOTE | 2020-06-30 16:36 | NUR ---
SUDEEP following. Spoke with RN and reviewed chart. SUDEEP called Dr. Megan Frank's office with the [place] and informed them that this authorization request has taken 3 days and that SUDEEP needs an answer today. Dilia called to say [place] declined to pay for acute rehab for pt. Spoke with dtr who wanted a referral to [facility]. SUDEEP phoned and faxed but they won't accept pt clinically as they feel pt needs LTC (explained dtr does not want LTC, still declined). Spoke with dtr who authorized referrals to [facility] ([facility] as [facility] location does not have staffing for TPN right now). SUDEEP completed another Patient Choice of Vendor form. SUDEEP spoke with Freddy at [facility] as this is dtr's first choice. Freddy will review and submit for authorization if they can accept pt clinically. SUDEEP added pt to the potential weekend discharge list for SNU pending insurance authorization. SUDEEP following.
[2020-06-30 19:00] VITALS: BP 117/67
[2020-06-30] MEDS ORDERED: DEXTROSE 70% IV SCH ×10 (22:00)
[2020-06-30] MEDS ORDERED: AMINO ACID IV SCH ×10 (22:00)
[2020-06-30] MEDS ORDERED: TOTAL PARENTERAL NUTRITION IV SCH ×10 (22:00)
[2020-06-30] MEDS ORDERED: [UNRECOGNIZED DRUG - OTHER] IV SCH ×10 (22:00)
[2020-06-30 23:00] VITALS: BP 111/80
[2020-07-01 03:00] VITALS: BP 106/66
[2020-07-01] MEDS: INSULIN LISPRO 300 UNITS/3 ML VIAL. SQ SCH ×3 (06:33→18:06)
[2020-07-01 07:00] VITALS: BP 112/61
[2020-07-01] MEDS: PANTOPRAZOLE IV PUSH 40 MG VIAL. IVP SCH (08:46)
[2020-07-01] MEDS: HEPARIN for SUB-Q USE 5,000 UNIT/ML VIAL. SQ SCH ×2 (08:59→21:18)
[2020-07-01] MEDS: INSULIN GLARGINE SYRINGE. SQ SCH ×2 (09:24→21:17)
[2020-07-01 11:00] VITALS: BP 109/73
--- NOTE | 2020-07-01 13:03 | PDOC ---
Renal-Progress Notes Subjective Notes Notes NO NEW COMPLAINTS History of Present Illness Hx of present illness STABLE Vitals Vitals Vital Signs Date Time Temp Pulse Resp B/P (MAP) Pulse Ox O2 Delivery O2 Flow Rate FiO2 07/01/20 11:00 98.0 89 20 109/73 (85) 100 98.0 07/01/20 07:55 Room Air Weight Weight [ ] I.O. Intake and Output Intake and Output 07/01/20 07:00 Intake Total 0 ml Output Total 1850 ml Balance -1850 ml Intake Oral 0 ml Output Urine Total 1850 ml Labs Labs Laboratory Tests Test 06/30/20 16:23 06/30/20 20:57 06/30/20 23:39 07/01/20 06:27 Glucose (Fingerstick) 243 mg/dL (70-99) 207 mg/dL (70-99) 216 mg/dL (70-99) 199 mg/dL (70-99) Test 07/01/20 09:21 Glucose (Fingerstick) 255 mg/dL (70-99) Micro Micro Microbiology 06/26/20 Urine Culture - Final, Complete 06/26/20 Blood Culture - Preliminary, Resulted NO GROWTH AFTER 4 DAYS Review of Systems Constitutional: yes: other (UNABLE TO OBTAIN) Physical Exam General Appearance: no apparent distress Skin: warm Respiratory: decreased breath sounds Heart: S1S2 Abdomen: soft, bowel sounds present Genitourinary: bladder flat Extremities: pulses present Assessment Assessment IMP MAIRA WITH CR OF 2.7 - IMPROVED TO 2.2 CKD STAGE 3 WITH CR OF ABOUT 2.2 EXTRACELLULAR VOLUME DEPLETION DISLODGED PEG TUBE SEVERE HYPERNATREMIA MALNUTRTION DM II PLAN HYDRATION TPN AND D5W MAINTAIN SERNA FOR ACCURATE I/O WILL FOLLOW EWA ESTRADA MD Jul 01, 2020 13:03
[2020-07-01] MEDS: TPN PER PHARMACY MC PRN (14:09)
[2020-07-01] MEDS: IV DEXTROSE 5% 1,000 ML IV SCH (14:27)
[2020-07-01 15:00] VITALS: BP 111/63
--- NOTE | 2020-07-01 15:42 | PDOC ---
[employer] PROGRESS NOTE Date of Service DOS: DATE: 07/01/20 TIME: 15:41 Chief Complaint Chief Complaint Acute metabolic encephalopathy NOS-improved Dislodged PEG tube Acute severe hypernatremia likely due to decreased p.o. intake and possible nephrogenic DI Severe malnutrition Acute on chronic renal failure Thrombocytopenia Normocytic anemia Hyperglycemia Admit to medicine GI consult Surgery consultedrecommended no surgical procedure at this time and will wait for PEG ostomy to close off before doing formal surgical procedure. Continue IV TPN Nephrology consulted for elevated sodium and acute renal failure versus CKD Pending urine electrolytes Continue D5W at 140 for now Trend sodium levels daily Consider dementia prevention protocol Provide adequate lighting (open curtains during the day, turn the lights off at night) Provide frequent personal contact with family, friends, and staff or TV Rehab screening ordered IV Haldol as needed for agitation, consider sitter as needed if non-redirectable agitation Avoid physical restraints, catheters or tubes, and benzodiazepines Nutrition consult if there is malnutrition or concern for vitamin deficiencies Continue IV fluids heparin DVT prophylaxis IV Protonix GI prophylaxis ADA diet Full code Discussed with RN and SW Dispo pending SNF placement is the [facility] History of Present Illness History of Present Illness 74-year-old male with past medical history of CABG, severe dementia, GERD, dyslipidemia, CKD, vascular disease, recent PEG tube placement on 06/21/2020 who comes to the ED because he recently pulled out his PEG tube. Daughter states that the PEG tube was leaking and they had to remove the abdominal binder. Moments later when they came back to try to feed him or given his medications through the PEG tube they realized that the PEG tube was already in his hand. Patient was recently discharged from the hospital after the PEG tube was placed. All of the history was obtained from the daughter and the who lives with the patient. Nursing facility options were discussed with the family at the last admission however they did not want the patient to go to a facility at that time. There was also no discussion for palliative care either. At that time, discussion was made to prolong life at that time and therefore a PEG tube was placed. Daughter at bedside states that the patient is fairly close to his baseline however he appears to be fairly weak. Patient is able to respond with one-word responses. Patient is alert and awake and oriented x1. Patient is not able to provide any parts of his history. Family meeting was held outside patient's room with and daughter. At this point, states that most of the patient's condition happened so quickly that the family did not have time to discuss hospice options or palliative care route. understands that the patient's condition is very severe and he has very poor prognosis. It was discussed in detail whether she should choose options for quality of life versus life prolonging measurements. At this time, family will continue to have discussions amongst himself to decide further planning for the patient. 06/27/2020 Patient seen and examined bedside today. No dramatic changes in his mental status. Responding appropriately with context of his severe dementia. Patient' s chart, labs, images were reviewed and discussed with RN 06/28/2020 No acute events overnight. Patient seen and examined bedside today. Improved mental status today and responding appropriately. Patient's chart, labs, images were reviewed and discussed with RN 06/29/2020 No acute events overnight. Patient's chart, labs, images were reviewed and discussed with RN 06/30/2020 No acute events overnight. Patient seen and examined bedside. Mental status is stable. No acute delirium overnight. Patient's chart, labs, images were reviewed and discussed with RN 07/01/2020 No acute events overnight. Patient seen and examined bedside. Improved mental status. Patient's chart, labs, images were reviewed and discussed with RN Vitals/I&O Vitals/I&O: Vital Signs Date Time Temp Pulse Resp B/P (MAP) Pulse Ox O2 Delivery O2 Flow Rate FiO2 07/01/20 15:00 98.2 89 20 111/63 (79) 97 98.2 07/01/20 07:55 Room Air I & O 06/30/20 06/30/20 07/01/20 15:00 23:00 07:00 Intake Total 0 ml Output Total 850 ml 1000 ml Balance -850 ml -1000 ml Physical Exam Physical Exam: GEN: No apparent distress. Alert and awake. Severely demented. Age-a ppropriate appearance HEENT: Normal cephalic, atraumatic, external auditory canals are patent NECK: Supple, no JVD, no thyromegaly was noted LUNGS: Bilateral clear to auscultation HEART: RRR, S1, S2 present. Peripheral pulses intact, no obvious murmurs n oted ABDOMEN: PEG tube opening with clotted blood. Abdomen is soft and nontender to palpation. Bowel sounds are heard. There is no purulence draining or active bleeding at this time. EXTREMITIES: Without clubbing, cyanosis, or edema. Pedal pulses intact. Negative Homans sign General: Alert Heart: Regular rate Lungs: Clear Abdomen: Soft Extremities: No clubbing Skin: No breakdown Labs Labs: Laboratory Tests Test 06/30/20 16:23 06/30/20 20:57 06/30/20 23:39 07/01/20 06:27 Glucose (Fingerstick) 243 mg/dL (70-99) 207 mg/dL (70-99) 216 mg/dL (70-99) 199 mg/dL (70-99) Test 07/01/20 09:21 Glucose (Fingerstick) 255 mg/dL (70-99) Assessment and Plan Assessmemt and Plan Problems Medical Problems: (1) Alzheimer's dementia Status: Acute (2) Anemia Status: Acute (3) CKD (chronic kidney disease) Status: Acute (4) Hypernatremia Status: Acute (5) PEG tube malfunction Status: Acute Comment Review of Relevant I have reviewed the following items miles (where applicable) has been applied. Medications: Current Medications Medications (Trade) Dose Ordered Sig/Quinn Route PRN Reason Start Time Stop Time Status Last Admin Dose Admin Potassium Acetate 70 meq/Potassium Phosphate 13.6 mmol/Magnesium Sulfate 10 meq/ Calcium Gluconate 10 meq/ Multivitamins 10 ml/Chromium/ Copper/Manganese/ Seleni/Zn 1 ml/ Insulin Human Regular 15 unit/ Total Parenteral Nutrition/Amino Acids/Dextrose/ Fat Emulsion Intravenous 2,040 ml @ 85 mls/hr TPN CONT IV 06/30/20 22:00 07/01/20 21:59 06/30/20 23:47 Dextrose 1,000 ml @ 75 mls/hr [id number] IV 07/01/20 13:15 07/01/20 14:27 Justifications for Admission Other Justification MILLA MEDINA MD Jul 01, 2020 15:42
[2020-07-01 19:00] VITALS: BP 107/67
[2020-07-01] MEDS ORDERED: DEXTROSE 70% IV SCH ×10 (22:00)
[2020-07-01] MEDS ORDERED: AMINO ACID IV SCH ×10 (22:00)
[2020-07-01] MEDS ORDERED: TOTAL PARENTERAL NUTRITION IV SCH ×10 (22:00)
[2020-07-01] MEDS ORDERED: [UNRECOGNIZED DRUG - OTHER] IV SCH ×10 (22:00)
[2020-07-01 23:03] VITALS: BP 113/63
[2020-07-02] MEDS: INSULIN LISPRO 300 UNITS/3 ML VIAL. SQ SCH ×4 (01:51→18:11)
[2020-07-02] MEDS: IV DEXTROSE 5% 1,000 ML IV SCH ×2 (01:56→16:57)
[2020-07-02 03:03] VITALS: BP 122/69
[2020-07-02] MEDS: PANTOPRAZOLE IV PUSH 40 MG VIAL. IVP SCH (06:35)
[2020-07-02 06:44] LABS: CALCIUM 9.1 mg/dL (8.5-10.1); GFR 39.7; POTASSIUM 3.7 mmol/L (3.5-5.1)
[2020-07-02 07:00] VITALS: BP 113/51
[2020-07-02] MEDS: HEPARIN for SUB-Q USE 5,000 UNIT/ML VIAL. SQ SCH ×2 (08:38→21:57)
[2020-07-02 11:00] VITALS: BP 112/66
[2020-07-02] MEDS: INSULIN GLARGINE SYRINGE. SQ SCH ×2 (12:17→21:57)
[2020-07-02] MEDS: TPN PER PHARMACY MC PRN ×4 (13:21→14:05)
--- NOTE | 2020-07-02 14:04 | PDOC ---
Renal-Progress Notes Subjective Notes Notes NOTHING NEW, CONFUSED History of Present Illness Hx of present illness NO CHANGES Vitals Vitals Vital Signs Date Time Temp Pulse Resp B/P (MAP) Pulse Ox O2 Delivery O2 Flow Rate FiO2 07/02/20 11:00 98.4 85 20 112/66 (81) 99 Room Air 98.4 Weight Weight [ ] I.O. Intake and Output Intake and Output 07/02/20 07:00 Output Total 1875 ml Balance -1875 ml Output Urine Total 1875 ml # Bowel Movements 1 Labs Labs Laboratory Tests Test 07/01/20 17:56 07/01/20 21:12 07/02/20 01:45 07/02/20 06:15 Glucose (Fingerstick) 286 mg/dL (70-99) 249 mg/dL (70-99) 258 mg/dL (70-99) Sodium Level 152 mmol/L (136-145) Potassium Level 3.7 mmol/L (3.5-5.1) Chloride Level 116 mmol/L (98-107) Carbon Dioxide Level 27 mmol/L (21-32) Anion Gap 9 (6-14) Blood Urea Nitrogen 31 mg/dL (8-26) Creatinine 2.0 mg/dL (0.7-1.3) Estimated GFR (Cockcroft-Gault) 39.7 Glucose Level 53 mg/dL (70-99) Calcium Level 9.1 mg/dL (8.5-10.1) Test 07/02/20 06:21 07/02/20 06:32 07/02/20 07:28 07/02/20 11:22 Glucose (Fingerstick) 59 mg/dL (70-99) 92 mg/dL (70-99) 109 mg/dL (70-99) 202 mg/dL (70-99) Micro Micro Microbiology 06/26/20 Urine Culture - Final, Complete 06/26/20 Blood Culture - Final, Complete NO GROWTH AFTER 5 DAYS Review of Systems Constitutional: yes: other (UNABLE TO OBTAIN) Physical Exam General Appearance: no apparent distress Skin: warm Respiratory: decreased breath sounds Heart: S1S2 Abdomen: soft, bowel sounds present Genitourinary: bladder flat Extremities: pulses present Assessment Assessment IMP MAIRA WITH CR OF 2.7 - IMPROVED TO 2.3 CKD STAGE 3 WITH CR OF ABOUT 2.2 EXTRACELLULAR VOLUME DEPLETION DISLODGED PEG TUBE SEVERE HYPERNATREMIA MALNUTRTION DM II PLAN HYDRATION TPN AND D5W MAINTAIN SERNA FOR ACCURATE I/O WILL FOLLOW EWA ESTRADA MD Jul 02, 2020 14:04
--- NOTE | 2020-07-02 14:06 | NUR ---
Pharmacy TPN Dosing Note S: ELIOSHEKHAR ALAS is a 74 year old M Currently receiving Central Continuous TPN started 06/27/20 B:Pertinent PMH: PEG MALFUNCTION. Continue TPH till possible G-Tube placement Height: 5 feet, 10 inches Weight: 95.4 kg Current diet: NPO LABS: Sodium: 152 Potassium: 3.7 Chloride: 116 Calcium: 9.0 Corrected Calcium: 10.04 Magnesium: 2.3 CO2: 27 SCr: 2.2 Glucose: 53/109 Albumin: 2.7 AST: 18 ALT: 37 TPN FORMULA: TPN TYPE: Central Continuous AMINO ACIDS: 80 gm DEXTROSE: 270 gm LIPIDS: 30 gm SODIUM CHLORIDE: - mEq SODIUM ACETATE: - mEq SODIUM PHOSPHATE: - mmol POTASSIUM CHLORIDE: - mEq POTASSIUM ACETATE: 90 mEq POTASSIUM PHOSPHATE: 13.6 mmol MAGNESIUM: 10 mEq CALCIUM: 10 mEq INSULIN: 15 units MULTIPLE VITAMIN: 10 ml TRACE ELEMENTS: 1 ml(s) TPN PLAN: fs level fluctuated this am due to tpn turn off for unknown period of time. cont tpn with only increase in kacetate 90 blanquita R: Continue TPN AT 85 ML/HR Will monitor electrolytes, glucose, and tolerance to TPN. [facility], 07/02/20 2102
[2020-07-02 15:30] VITALS: BP 108/69
[2020-07-02 19:00] VITALS: BP 100/54
--- NOTE | 2020-07-02 19:12 | PDOC ---
[employer] PROGRESS NOTE Date of Service DOS: DATE: 07/02/20 TIME: 19:11 Chief Complaint Chief Complaint Acute metabolic encephalopathy NOS-improved Dislodged PEG tube Acute severe hypernatremia likely due to decreased p.o. intake and possible nephrogenic DI Severe malnutrition Acute on chronic renal failure Thrombocytopenia Normocytic anemia Hyperglycemia Start D5W at 75 Appreciate nephrology recommendations Appreciate GI recommendations Surgery consultedrecommended no surgical procedure at this time and will wait for PEG ostomy to close off before doing formal surgical procedure. Continue IV TPN Nephrology consulted for elevated sodium and acute renal failure versus CKD Pending urine electrolytes Trend sodium levels daily Consider dementia prevention protocol Provide adequate lighting (open curtains during the day, turn the lights off at night) Provide frequent personal contact with family, friends, and staff or TV Rehab screening ordered IV Haldol as needed for agitation, consider sitter as needed if non-redirectable agitation Avoid physical restraints, catheters or tubes, and benzodiazepines Nutrition consult if there is malnutrition or concern for vitamin deficiencies Continue IV fluids heparin DVT prophylaxis IV Protonix GI prophylaxis ADA diet Full code Discussed with RN and SW Dispo pending SNF placement is the [facility] History of Present Illness History of Present Illness 74-year-old male with past medical history of CABG, severe dementia, GERD, dyslipidemia, CKD, vascular disease, recent PEG tube placement on 06/21/2020 who comes to the ED because he recently pulled out his PEG tube. Daughter states that the PEG tube was leaking and they had to remove the abdominal binder. Moments later when they came back to try to feed him or given his medications through the PEG tube they realized that the PEG tube was already in his hand. Patient was recently discharged from the hospital after the PEG tube was placed. All of the history was obtained from the daughter and the who lives with the patient. Nursing facility options were discussed with the family at the last admission however they did not want the patient to go to a facility at that time. There was also no discussion for palliative care either. At that time, discussion was made to prolong life at that time and therefore a PEG tube was placed. Daughter at bedside states that the patient is fairly close to his baseline however he appears to be fairly weak. Patient is able to respond with one-word responses. Patient is alert and awake and oriented x1. Patient is not able to provide any parts of his history. Family meeting was held outside patient's room with and daughter. At this point, states that most of the patient's condition happened so quickly that the family did not have time to discuss hospice options or palliative care route. understands that the patient's condition is very severe and he has very poor prognosis. It was discussed in detail whether she should choose options for quality of life versus life prolonging measurements. At this time, family will continue to have discussions amongst himself to decide further planning for the patient. 06/27/2020 Patient seen and examined bedside today. No dramatic changes in his mental status. Responding appropriately with context of his severe dementia. Patient's chart, labs, images were reviewed and discussed with RN 06/28/2020 No acute events overnight. Patient seen and examined bedside today. Improved mental status today and responding appropriately. Patient's chart, labs, images were reviewed and discussed with RN 06/29/2020 No acute events overnight. Patient's chart, labs, images were reviewed and discussed with RN 06/30/2020 No acute events overnight. Patient seen and examined bedside. Mental status is stable. No acute delirium overnight. Patient's chart, labs, images were reviewed and discussed with RN 07/01/2020 No acute events overnight. Patient seen and examined bedside. Improved mental status. Patient's chart, labs, images were reviewed and discussed with RN 07/02/2020 No acute events overnight. Patient seen and examined bedside. Mental status is stable. Sodium levels are still elevated at 152. Patient's chart, labs, images were reviewed and discussed with RN Vitals/I&O Vitals/I&O: Vital Signs Date Time Temp Pulse Resp B/P (MAP) Pulse Ox O2 Delivery O2 Flow Rate FiO2 07/02/20 15:30 98.1 85 20 108/69 (82) 99 Room Air 98.1 I & O 07/01/20 07/01/20 07/02/20 15:00 23:00 07:00 Output Total 475 ml 750 ml 650 ml Balance -475 ml -750 ml -650 ml Physical Exam Physical Exam: GEN: No apparent distress. Alert and awake. Severely demented. Age- appropriate appearance HEENT: Normal cephalic, atraumatic, external auditory canals are patent NECK: Supple, no JVD, no thyromegaly was noted LUNGS: Bilateral clear to auscultation HEART: RRR, S1, S2 present. Peripheral pulses intact, no obvious murmurs noted ABDOMEN: PEG tube opening with clotted blood. Abdomen is soft and nontender to palpation. Bowel sounds are heard. There is no purulence draining or active bleeding at this time. EXTREMITIES: Without clubbing, cyanosis, or edema. Pedal pulses intact. Negative Homans sign General: Alert Heart: Regular rate Lungs: Clear Abdomen: Soft Extremities: No clubbing Skin: No breakdown Labs Labs: Laboratory Tests Test 07/01/20 21:12 07/02/20 01:45 07/02/20 06:15 07/02/20 06:21 Glucose (Fingerstick) 249 mg/dL (70-99) 258 mg/dL (70-99) 59 mg/dL (70-99) Sodium Level 152 mmol/L (136-145) Potassium Level 3.7 mmol/L (3.5-5.1) Chloride Level 116 mmol/L (98-107) Carbon Dioxide Level 27 mmol/L (21-32) Anion Gap 9 (6-14) Blood Urea Nitrogen 31 mg/dL (8-26) Creatinine 2.0 mg/dL (0.7-1.3) Estimated GFR (Cockcroft-Gault) 39.7 Glucose Level 53 mg/dL (70-99) Calcium Level 9.1 mg/dL (8.5-10.1) Test 07/02/20 06:32 07/02/20 07:28 07/02/20 11:22 07/02/20 15:58 Glucose (Fingerstick) 92 mg/dL (70-99) 109 mg/dL (70-99) 202 mg/dL (70-99) 256 mg/dL (70-99) Assessment and Plan Assessmemt and Plan Problems Medical Problems: (1) Alzheimer's dementia Status: Acute (2) Anemia Status: Acute (3) CKD (chronic kidney disease) Status: Acute (4) Hypernatremia Status: Acute (5) PEG tube malfunction Status: Acute Comment Review of Relevant I have reviewed the following items miles (where applicable) has been applied. Medications: Current Medications Medications (Trade) Dose Ordered Sig/Quinn Route PRN Reason Start Time Stop Time Status Last Admin Dose Admin Potassium Acetate 70 meq/Potassium Phosphate 13.6 mmol/Magnesium Sulfate 10 meq/ Calcium Gluconate 10 meq/ Multivitamins 10 ml/Chromium/ Copper/Manganese/ Seleni/Zn 1 ml/ Insulin Human Regular 15 unit/ Total Parenteral Nutrition/Amino Acids/Dextrose/ Fat Emulsion Intravenous 2,040 ml @ 85 mls/hr TPN CONT IV 07/01/20 22:00 07/02/20 21:59 07/01/20 21:19 Justifications for Admission Other Justification MILLA MEDINA MD Jul 02, 2020 19:12
[2020-07-02] MEDS ORDERED: TOTAL PARENTERAL NUTRITION IV SCH ×10 (22:00)
[2020-07-02] MEDS ORDERED: [UNRECOGNIZED DRUG - OTHER] IV SCH ×10 (22:00)
[2020-07-02] MEDS ORDERED: DEXTROSE 70% IV SCH ×10 (22:00)
[2020-07-02] MEDS ORDERED: AMINO ACID IV SCH ×10 (22:00)
[2020-07-02 23:00] VITALS: BP 155/76
[2020-07-03] MEDS: INSULIN LISPRO 300 UNITS/3 ML VIAL. SQ SCH ×4 (00:18→17:16)
[2020-07-03 03:00] VITALS: BP 146/65
[2020-07-03] MEDS: IV DEXTROSE 5% 1,000 ML IV SCH ×2 (05:13→17:13)
[2020-07-03 05:36] LABS: CALCIUM 8.8 mg/dL (8.5-10.1); CREATININE 2.1 mg/dL (0.7-1.3); GFR 37.5; POTASSIUM 4.3 mmol/L (3.5-5.1)
[2020-07-03 07:00] VITALS: BP 101/62
[2020-07-03] MEDS: PANTOPRAZOLE IV PUSH 40 MG VIAL. IVP SCH (09:21)
[2020-07-03] MEDS: INSULIN GLARGINE SYRINGE. SQ SCH ×2 (09:29→20:49)
[2020-07-03] MEDS: HEPARIN for SUB-Q USE 5,000 UNIT/ML VIAL. SQ SCH ×2 (09:30→20:49)
--- NOTE | 2020-07-03 10:04 | PDOC ---
DATE OF SERVICE DATE: 07/03/20 TIME: 10:03 SUBJECTIVE ROS stable OBJECTIVE Vital Signs Vital Signs Date Time Temp Pulse Resp B/P (MAP) Pulse Ox O2 Delivery O2 Flow Rate FiO2 07/03/20 07:00 98.5 90 22 101/62 (75) 100 Room Air 98.5 I & 0 Intake and Output 07/03/20 07:00 Intake Total 3000 ml Output Total 1750 ml Balance 1250 ml Intake Oral 0 ml IV Total 3000 ml Output Urine Total 1750 ml PHYSICAL EXAM Physical Exam General Appearance: no apparent distress Skin: warm Respiratory: decreased breath sounds Heart: S1S2 Abdomen: soft, bowel sounds present Genitourinary: bladder flat Extremities: pulses present Lopez + DIAGNOSIS/ASSESSMENT Assessment & Plan MAIRA - Cr peaked at 2.7, back to baseline HyperNatremia- Resolved Free water flushes if PEG tube replaced Acute metabolic encephalopathy -improved Dislodged PEG tube Chronic kidney disease stage 3, likely secondary to hypertensive nephrosclerosis.Baseline appears to be ~2.2 Bilat Renal cysts Severe malnutrition COMMENT/RELEVANT DATA Meds Current Medications Medications (Trade) Dose Ordered Sig/Quinn Start Time Stop Time Status Last Admin Dose Admin Dextrose 1,000 ml @ 75 mls/hr [id number] 07/01/20 13:15 07/03/20 05:13 75 MLS/HR Dextrose (Dextrose 50%-Water Syringe) 12.5 gm PRN Q15MIN PRN 06/26/20 22:15 Dextrose/Sodium Chloride 1,000 ml @ 140 mls/hr [id number] 06/26/20 22:15 06/27/20 19:30 DC 06/27/20 12:30 140 MLS/HR Heparin Sodium (Porcine) (Heparin Sodium) 5,000 unit Q12HR 06/30/20 09:00 07/03/20 09:30 5,000 UNIT Info (Tpn Per Pharmacy) 1 each PRN DAILY PRN 06/27/20 09:15 07/02/20 14:05 1 EACH Insulin Glargine (Lantus Syringe) 40 unit BID 06/29/20 21:00 07/03/20 09:29 40 UNIT Insulin Human Lispro (HumaLOG) 0-9 UNITS Q6HRS 06/27/20 00:00 07/03/20 05:22 5 UNITS Lidocaine HCl (Buffered Lidocaine 1%) 3 ml 1X ONCE 06/27/20 13:15 06/27/20 13:16 DC 06/27/20 13:15 3 ML Pantoprazole Sodium (PROTONIX VIAL for IV PUSH) 40 mg DAILYAC 06/27/20 07:30 07/03/20 09:21 40 MG Piperacillin Sod/ Tazobactam Sod 4.5 gm/Sodium Chloride 100 ml @ 200 mls/hr 1X ONCE 06/26/20 14:45 06/26/20 15:14 DC 06/26/20 15:09 200 MLS/HR Potassium Acetate 50 meq/Potassium Phosphate 13.6 mmol/Magnesium Sulfate 10 meq/ Calcium Gluconate 10 meq/ Multivitamins 10 ml/Chromium/ Copper/Manganese/ Seleni/Zn 1 ml/ Total Parenteral Nutrition/Amino Acids/Dextrose/ Fat Emulsion Intravenous 2,040 ml @ 85 mls/hr TPN CONT 06/27/20 22:00 06/28/20 21:59 DC 06/27/20 21:18 85 MLS/HR Potassium Acetate 70 meq/Potassium Phosphate 13.6 mmol/Magnesium Sulfate 10 meq/ Calcium Gluconate 10 meq/ Multivitamins 10 ml/Chromium/ Copper/Manganese/ Seleni/Zn 1 ml/ Insulin Human Regular 10 unit/ Total Parenteral Nutrition/Amino Acids/Dextrose/ Fat Emulsion Intravenous 2,040 ml @ 85 mls/hr TPN CONT 06/28/20 22:00 06/29/20 21:59 DC 06/28/20 21:41 85 MLS/HR Potassium Acetate 70 meq/Potassium Phosphate 13.6 mmol/Magnesium Sulfate 10 meq/ Calcium Gluconate 10 meq/ Multivitamins 10 ml/Chromium/ Copper/Manganese/ Seleni/Zn 1 ml/ Insulin Human Regular 15 unit/ Total Parenteral Nutrition/Amino Acids/Dextrose/ Fat Emulsion Intravenous 2,040 ml @ 85 mls/hr TPN CONT 07/01/20 22:00 07/02/20 21:59 DC 07/01/20 21:19 85 MLS/HR Potassium Acetate 90 meq/Potassium Phosphate 13.6 mmol/Magnesium Sulfate 10 meq/ Calcium Gluconate 10 meq/ Multivitamins 10 ml/Chromium/ Copper/Manganese/ Seleni/Zn 1 ml/ Insulin Human Regular 15 unit/ Total Parenteral Nutrition/Amino Acids/Dextrose/ Fat Emulsion Intravenous 2,040 ml @ 85 mls/hr TPN CONT 07/02/20 22:00 07/03/20 21:59 07/02/20 21:58 85 MLS/HR Lab Laboratory Tests Test 07/02/20 11:22 07/02/20 15:58 07/02/20 20:35 07/03/20 00:01 Glucose (Fingerstick) 202 mg/dL (70-99) 256 mg/dL (70-99) 218 mg/dL (70-99) 258 mg/dL (70-99) Test 07/03/20 05:17 07/03/20 05:20 07/03/20 07:20 Glucose (Fingerstick) 202 mg/dL (70-99) 191 mg/dL (70-99) Sodium Level 144 mmol/L (136-145) Potassium Level 4.3 mmol/L (3.5-5.1) Chloride Level 109 mmol/L (98-107) Carbon Dioxide Level 28 mmol/L (21-32) Anion Gap 7 (6-14) Blood Urea Nitrogen 31 mg/dL (8-26) Creatinine 2.1 mg/dL (0.7-1.3) Estimated GFR (Cockcroft-Gault) 37.5 Glucose Level 208 mg/dL (70-99) Calcium Level 8.8 mg/dL (8.5-10.1) Results All relevant outside records, renal labs, imaging studies, telemetry/EKG's were reviewed. Justicifation of Admission Dx: Justifications for Admission: Justification of Admission Dx: Yes Chronic Renal Failure: Intravenous Infusions (post surgical complication) BREANN RUIZ MD Jul 03, 2020 10:04
[2020-07-03 10:59] VITALS: BP 125/74
--- NOTE | 2020-07-03 11:18 | PDOC ---
Date of Service: DATE: 07/03/20 TIME: 11:16 Objective: Objective: Reviewed chart. Vital Signs: Vital Signs Date Time Temp Pulse Resp B/P (MAP) Pulse Ox O2 Delivery O2 Flow Rate FiO2 07/03/20 10:59 98.7 90 20 125/74 (91) 97 Room Air 98.7 Labs: Laboratory Tests Test 07/02/20 11:22 07/02/20 15:58 07/02/20 20:35 07/03/20 00:01 Glucose (Fingerstick) 202 mg/dL (70-99) 256 mg/dL (70-99) 218 mg/dL (70-99) 258 mg/dL (70-99) Test 07/03/20 05:17 07/03/20 07:20 Glucose (Fingerstick) 202 mg/dL (70-99) 191 mg/dL (70-99) Dementia, dysphagia - plan for G tube placement w/ surgery in 1 month -- Continue same per GI. PE: GEN: NAD - TPN running LUNGS: clear HEART: RR ABD: non-distended NEURO/PSYCH: sleeping, did not awaken A/P: Dementia, dysphagia - plan for G tube placement w/ surgery in 1 month Hyponatremia - resolved -- Disposition plans per primary. Justicifation of Admission Dx: Justifications for Admission: Justification of Admission Dx: Yes Chronic Renal Failure: Intravenous Infusions (post surgical complication) RIAN PARRISH Jul 03, 2020 11:18
[2020-07-03] MEDS: TPN PER PHARMACY MC PRN (12:57)
--- NOTE | 2020-07-03 12:59 | NUR ---
Pharmacy TPN Dosing Note S: SHEKHAR DENISE is a 74 year old M Currently receiving Central Continuous TPN started 06/27/20 B:Pertinent PMH: PEG MALFUNCTION. Continue TPN till possible G-Tube placement Current diet: NPO LABS: Sodium: 144 Potassium: 4.3 Chloride: 109 Calcium: 8.8 Corrected Calcium: 9.84 Magnesium: 2.3 CO2: 27 SCr: 2.2 Glucose: 191-258 Albumin: 2.7 AST: 18 ALT: 37 TPN FORMULA: TPN TYPE: Central Continuous AMINO ACIDS: 80 gm DEXTROSE: 270 gm LIPIDS: 30 gm SODIUM CHLORIDE: - mEq SODIUM ACETATE: - mEq SODIUM PHOSPHATE: - mmol POTASSIUM CHLORIDE: - mEq POTASSIUM ACETATE: 90 mEq POTASSIUM PHOSPHATE: 13.6 mmol MAGNESIUM: 10 mEq CALCIUM: 10 mEq INSULIN: 25 units MULTIPLE VITAMIN: 10 ml TRACE ELEMENTS: 1 ml(s) TPN PLAN: 07/03 increase Insulin to 25 units/bag as pt consistently needing SSI, cont the rest of TPN with no changes. R: Continue TPN Will monitor electrolytes, glucose, and tolerance to TPN. RYDER PAIGE [facility], 07/03/20 1923
--- NOTE | 2020-07-03 13:08 | NUR ---
SUDEEP following. Spoke with RN and reviewed chart. Spoke with Freddy at [facility] and they have accepted pt clinically and he has submitted for insurance authorization. SUDEEP awaiting insurance decisions. SUDEEP following. Addendum: 07/03/20 at 1523 by KIM SHEETS SUDEEP faxed updated PT note from today to Freddy at [place]. Updated dtr.
[2020-07-03 15:00] VITALS: BP 156/56
--- NOTE | 2020-07-03 16:16 | PDOC ---
PROGRESS NOTES Date of Service: DATE: 07/03/20 TIME: 16:14 Chief Complaint Chief Complaint Acute metabolic encephalopathy NOS-improved Dislodged PEG tube Acute severe hypernatremia likely due to decreased p.o. intake and possible nephrogenic DI Severe malnutrition Acute on chronic renal failure Thrombocytopenia Normocytic anemia Hyperglycemia Start D5W at 75 Appreciate nephrology recommendations Appreciate GI recommendations Surgery consultedrecommended no surgical procedure at this time and will wait for PEG ostomy to close off before doing formal surgical procedure. Continue IV TPN Nephrology consulted for elevated sodium and acute renal failure versus CKD Pending urine electrolytes Trend sodium levels daily Consider dementia prevention protocol Provide adequate lighting (open curtains during the day, turn the lights off at night) Provide frequent personal contact with family, friends, and staff or TV Rehab screening ordered IV Haldol as needed for agitation, consider sitter as needed if non-redirectable agitation Avoid physical restraints, catheters or tubes, and benzodiazepines Nutrition consult if there is malnutrition or concern for vitamin deficiencies Continue IV fluids heparin DVT prophylaxis IV Protonix GI prophylaxis ADA diet Full code Discussed with RN and SW Dispo pending SNF placement is the [facility] History of Present Illness History of Present Illness 74-year-old male with past medical history of CABG, severe dementia, GERD, dyslipidemia, CKD, vascular disease, recent PEG tube placement on 06/21/2020 who comes to the ED because he recently pulled out his PEG tube. Daughter states that the PEG tube was leaking and they had to remove the abdominal binder. Moments later when they came back to try to feed him or given his medications through the PEG tube they realized that the PEG tube was already in his hand. Patient was recently discharged from the hospital after the PEG tube was placed. All of the history was obtained from the daughter and the who lives with the patient. Nursing facility options were discussed with the family at the last admission however they did not want the patient to go to a facility at that time. There was also no discussion for palliative care either. At that time, discussion was made to prolong life at that time and therefore a PEG tube was placed. Daughter at bedside states that the patient is fairly close to his baseline however he appears to be fairly weak. Patient is able to respond with one-word responses. Patient is alert and awake and oriented x1. Patient is not able to provide any parts of his history. Family meeting was held outside patient's room with and daughter. At this point, states that most of the patient's condition happened so quickly that the family did not have time to discuss hospice options or palliative care route. understands that the patient's condition is very severe and he has very poor prognosis. It was discussed in detail whether she should choose options for quality of life versus life prolonging measurements. At this time, family will continue to have discussions amongst himself to decide further planning for the patient. 06/27/2020 Patient seen and examined bedside today. No dramatic changes in his mental status. Responding appropriately with context of his severe dementia. Patient 's chart, labs, images were reviewed and discussed with RN 06/28/2020 No acute events overnight. Patient seen and examined bedside today. Improved mental status today and responding appropriately. Patient's chart, labs, images were reviewed and discussed with RN 06/29/2020 No acute events overnight. Patient's chart, labs, images were reviewed and discussed with RN 06/30/2020 No acute events overnight. Patient seen and examined bedside. Mental status is stable. No acute delirium overnight. Patient's chart, labs, images were reviewed and discussed with RN 07/01/2020 No acute events overnight. Patient seen and examined bedside. Improved mental status. Patient's chart, labs, images were reviewed and discussed with RN 07/02/2020 No acute events overnight. Patient seen and examined bedside. Mental status is stable. Sodium levels are still elevated at 152. Patient's chart, labs, images were reviewed and discussed with RN 07/03/2020 Patient seen and examined bedside. Does not answer questions this morning. No acute events overnight. Discussed with RN. Vitals Vitals Vital Signs Date Time Temp Pulse Resp B/P (MAP) Pulse Ox O2 Delivery O2 Flow Rate FiO2 07/03/20 10:59 98.7 90 20 125/74 (91) 97 Room Air 98.7 Physical Exam Physical Exam GEN: No apparent distress. Alert and awake. Severely demented. Age- appropriate appearance HEENT: Normal cephalic, atraumatic, external auditory canals are patent NECK: Supple, no JVD, no thyromegaly was noted LUNGS: Bilateral clear to auscultation HEART: RRR, S1, S2 present. Peripheral pulses intact, no obvious murmurs noted ABDOMEN: PEG tube opening with clotted blood. Abdomen is soft and nontender to palpation. Bowel sounds are heard. There is no purulence draining or active bleeding at this time. EXTREMITIES: Without clubbing, cyanosis, or edema. Pedal pulses intact. Negative Homans sign General: Alert Heart: Regular rate Lungs: Clear Abdomen: Soft Extremities: No clubbing Skin: No breakdown Labs LABS Laboratory Tests Test 07/02/20 20:35 07/03/20 00:01 07/03/20 05:17 07/03/20 05:20 Glucose (Fingerstick) 218 mg/dL (70-99) 258 mg/dL (70-99) 202 mg/dL (70-99) Sodium Level 144 mmol/L (136-145) Potassium Level 4.3 mmol/L (3.5-5.1) Chloride Level 109 mmol/L (98-107) Carbon Dioxide Level 28 mmol/L (21-32) Anion Gap 7 (6-14) Blood Urea Nitrogen 31 mg/dL (8-26) Creatinine 2.1 mg/dL (0.7-1.3) Estimated GFR (Cockcroft-Gault) 37.5 Glucose Level 208 mg/dL (70-99) Calcium Level 8.8 mg/dL (8.5-10.1) Test 07/03/20 07:20 07/03/20 11:46 Glucose (Fingerstick) 191 mg/dL (70-99) 246 mg/dL (70-99) Assessment and Plan Assessmemt and Plan Problems Medical Problems: (1) Alzheimer's dementia Status: Acute (2) Anemia Status: Acute (3) CKD (chronic kidney disease) Status: Acute (4) Hypernatremia Status: Acute (5) PEG tube malfunction Status: Acute Comment Review of Relevant I have reviewed the following items miles (where applicable) has been applied. Labs Laboratory Tests Test 07/01/20 17:56 07/01/20 21:12 07/02/20 01:45 07/02/20 06:15 Glucose (Fingerstick) 286 mg/dL (70-99) 249 mg/dL (70-99) 258 mg/dL (70-99) Sodium Level 152 mmol/L (136-145) Potassium Level 3.7 mmol/L (3.5-5.1) Chloride Level 116 mmol/L (98-107) Carbon Dioxide Level 27 mmol/L (21-32) Anion Gap 9 (6-14) Blood Urea Nitrogen 31 mg/dL (8-26) Creatinine 2.0 mg/dL (0.7-1.3) Estimated GFR (Cockcroft-Gault) 39.7 Glucose Level 53 mg/dL (70-99) Calcium Level 9.1 mg/dL (8.5-10.1) Test 07/02/20 06:21 07/02/20 06:32 07/02/20 07:28 07/02/20 11:22 Glucose (Fingerstick) 59 mg/dL (70-99) 92 mg/dL (70-99) 109 mg/dL (70-99) 202 mg/dL (70-99) Test 07/02/20 15:58 07/02/20 20:35 07/03/20 00:01 07/03/20 05:17 Glucose (Fingerstick) 256 mg/dL (70-99) 218 mg/dL (70-99) 258 mg/dL (70-99) 202 mg/dL (70-99) Test 07/03/20 05:20 07/03/20 07:20 07/03/20 11:46 Sodium Level 144 mmol/L (136-145) Potassium Level 4.3 mmol/L (3.5-5.1) Chloride Level 109 mmol/L (98-107) Carbon Dioxide Level 28 mmol/L (21-32) Anion Gap 7 (6-14) Blood Urea Nitrogen 31 mg/dL (8-26) Creatinine 2.1 mg/dL (0.7-1.3) Estimated GFR (Cockcroft-Gault) 37.5 Glucose Level 208 mg/dL (70-99) Calcium Level 8.8 mg/dL (8.5-10.1) Glucose (Fingerstick) 191 mg/dL (70-99) 246 mg/dL (70-99) Laboratory Tests Test 07/02/20 20:35 07/03/20 00:01 07/03/20 05:17 07/03/20 05:20 Glucose (Fingerstick) 218 mg/dL (70-99) 258 mg/dL (70-99) 202 mg/dL (70-99) Sodium Level 144 mmol/L (136-145) Potassium Level 4.3 mmol/L (3.5-5.1) Chloride Level 109 mmol/L (98-107) Carbon Dioxide Level 28 mmol/L (21-32) Anion Gap 7 (6-14) Blood Urea Nitrogen 31 mg/dL (8-26) Creatinine 2.1 mg/dL (0.7-1.3) Estimated GFR (Cockcroft-Gault) 37.5 Glucose Level 208 mg/dL (70-99) Calcium Level 8.8 mg/dL (8.5-10.1) Test 07/03/20 07:20 07/03/20 11:46 Glucose (Fingerstick) 191 mg/dL (70-99) 246 mg/dL (70-99) Microbiology 06/26/20 Urine Culture - Final, Complete 06/26/20 Blood Culture - Final, Complete NO GROWTH AFTER 5 DAYS Medications Current Medications Piperacillin Sod/ Tazobactam Sod 4.5 gm/Sodium Chloride 100 ml @ 200 mls/hr 1X ONCE IV Last administered on 06/26/20at 15:09; Start 06/26/20 at 14:45; Stop 06/26/20 at 15:14; Status DC Pantoprazole Sodium (PROTONIX VIAL for IV PUSH) 40 mg DAILY IVP Last administered on 06/26/20at 16:58; Start 06/26/20 at 16:30; Stop 06/26/20 at 20:20; Status DC Pantoprazole Sodium (PROTONIX VIAL for IV PUSH) 40 mg DAILYAC IVP Last administered on 07/03/20at 09:21; Start 06/27/20 at 07:30 Insulin Human Lispro (HumaLOG) 0-9 UNITS Q6HRS SQ Last administered on 07/03/20at 12:08; Start 06/27/20 at 00:00 Dextrose (Dextrose 50%-Water Syringe) 12.5 gm PRN Q15MIN PRN IV SEE COMMENTS; Start 06/26/20 at 22:15 Dextrose/Sodium Chloride 1,000 ml @ 140 mls/hr Q7H9M IV Last administered on 06/27/20at 12:30; Start 06/26/20 at 22:15; Stop 06/27/20 at 19:30; Status DC Info (Tpn Per Pharmacy) 1 each PRN DAILY PRN MC SEE COMMENTS Last administered on 07/03/20at 12:57; Start 06/27/20 at 09:15 Potassium Acetate 50 meq/Potassium Phosphate 13.6 mmol/Magnesium Sulfate 10 meq/ Calcium Gluconate 10 meq/ Multivitamins 10 ml/Chromium/ Copper/Manganese/ Seleni/Zn 1 ml/ Total Parenteral Nutrition/Amino Acids/Dextrose/ Fat Emulsion Intravenous 2,040 ml @ 85 mls/hr TPN CONT IV Last administered on 06/27/20at 21:18; Start 06/27/20 at 22:00; Stop 06/28/20 at 21:59; Status DC Lidocaine HCl (Buffered Lidocaine 1%) 3 ml STK-MED ONCE .ROUTE ; Start 06/27/20 at 12:54; Stop 06/27/20 at 12:55; Status DC Lidocaine HCl (Buffered Lidocaine 1%) 3 ml 1X ONCE INJ Last administered on 06/27/20at 13:15; Start 06/27/20 at 13:15; Stop 06/27/20 at 13:16; Status DC Dextrose 1,000 ml @ 140 mls/hr Q7H9M IV Last administered on 06/28/20at 05:26; Start 06/27/20 at 13:45; Stop 06/28/20 at 13:05; Status DC Insulin Glargine (Lantus Syringe) 40 unit QHS SQ Last administered on 06/28/20at 21:42; Start 06/27/20 at 21:00; Stop 06/29/20 at 11:26; Status DC Potassium Acetate 70 meq/Potassium Phosphate 13.6 mmol/Magnesium Sulfate 10 meq/ Calcium Gluconate 10 meq/ Multivitamins 10 ml/Chromium/ Copper/Manganese/ Seleni/Zn 1 ml/ Insulin Human Regular 10 unit/ Total Parenteral Nutrition/Amino Acids/Dextrose/ Fat Emulsion Intravenous 2,040 ml @ 85 mls/hr TPN CONT IV Last administered on 06/28/20at 21:41; Start 06/28/20 at 22:00; Stop 06/29/20 at 21:59; Status DC Insulin Glargine (Lantus Syringe) 40 unit QAM SQ Last administered on 06/29/20at 10:00; Start 06/29/20 at 09:00; Stop 06/29/20 at 11:26; Status DC Insulin Glargine (Lantus Syringe) 40 unit BID SQ Last administered on 07/03/20at 09:29; Start 06/29/20 at 21:00 Potassium Acetate 70 meq/Potassium Phosphate 13.6 mmol/Magnesium Sulfate 10 meq/ Calcium Gluconate 10 meq/ Multivitamins 10 ml/Chromium/ Copper/Manganese/ Seleni/Zn 1 ml/ Insulin Human Regular 15 unit/ Total Parenteral Nutrition/Amino Acids/Dextrose/ Fat Emulsion Intravenous 2,040 ml @ 85 mls/hr TPN CONT IV Last administered on 06/29/20at 22:08; Start 06/29/20 at 22:00; Stop 06/30/20 at 21:59; Status DC Heparin Sodium (Porcine) (Heparin Sodium) 5,000 unit Q12HR SQ Last administered on 07/03/20at 09:30; Start 06/30/20 at 09:00 Potassium Acetate 70 meq/Potassium Phosphate 13.6 mmol/Magnesium Sulfate 10 meq/ Calcium Gluconate 10 meq/ Multivitamins 10 ml/Chromium/ Copper/Manganese/ Seleni/Zn 1 ml/ Insulin Human Regular 15 unit/ Total Parenteral Nutrition/Amino Acids/Dextrose/ Fat Emulsion Intravenous 2,040 ml @ 85 mls/hr TPN CONT IV Last administered on 06/30/20at 23:47; Start 06/30/20 at 22:00; Stop 07/01/20 at 21:59; Status DC Dextrose 1,000 ml @ 75 mls/hr [id number] IV Last administered on 07/03/20at 05:13; Start 07/01/20 at 13:15 Potassium Acetate 70 meq/Potassium Phosphate 13.6 mmol/Magnesium Sulfate 10 meq/ Calcium Gluconate 10 meq/ Multivitamins 10 ml/Chromium/ Copper/Manganese/ Seleni/Zn 1 ml/ Insulin Human Regular 15 unit/ Total Parenteral Nutrition/Amino Acids/Dextrose/ Fat Emulsion Intravenous 2,040 ml @ 85 mls/hr TPN CONT IV Last administered on 07/01/20at 21:19; Start 07/01/20 at 22:00; Stop 07/02/20 at 21:59; Status DC Potassium Acetate 90 meq/Potassium Phosphate 13.6 mmol/Magnesium Sulfate 10 meq/ Calcium Gluconate 10 meq/ Multivitamins 10 ml/Chromium/ Copper/Manganese/ Seleni/Zn 1 ml/ Insulin Human Regular 15 unit/ Total Parenteral Nutrition/Amino Acids/Dextrose/ Fat Emulsion Intravenous 2,040 ml @ 85 mls/hr TPN CONT IV Last administered on 07/02/20at 21:58; Start 07/02/20 at 22:00; Stop 07/03/20 at 21:59 Potassium Acetate 90 meq/Potassium Phosphate 13.6 mmol/Magnesium Sulfate 10 meq/ Calcium Gluconate 10 meq/ Multivitamins 10 ml/Chromium/ Copper/Manganese/ Seleni/Zn 1 ml/ Insulin Human Regular 25 unit/ Total Parenteral Nutrition/Amino Acids/Dextrose/ Fat Emulsion Intravenous 2,040 ml @ 85 mls/hr TPN CONT IV ; Start 07/03/20 at 22:00; Stop 07/04/20 at 21:59 Active Scripts Active [Acetaminophen] 500 MG Tablet 500 Mg PO PRN Q6HRS PRN Coreg (Carvedilol) 6.25 Mg Tablet 6.25 Mg PO BIDWMEALS Reported Famotidine 20 Mg Tablet 20 Mg PO BIDAC Levemir Flextouch (Insulin Detemir) 100 Unit/1 Ml Insuln.pen 42 Unit SQ TIDAC Flonase Allergy Relief (Fluticasone Propionate) 9.9 Ml [place].susp 2 Sprays NS DAILY Aspirin 81 Mg Tab.chew 1 Tab PO DAILY Atorvastatin Calcium 80 Mg Tablet 1 Tab PO HS Calcium (Calcium Carbonate) 500 Mg Tablet 500 Mg PO BID92 Vitamin D (Cholecalciferol (Vitamin D3)) 2,000 Unit Capsule 2,000 Unit PO BID94 Trazodone Hcl 50 Mg Tablet 50 Mg PO PRN QHS PRN [place] Carbonate 300 Mg Tablet 300 Mg PO BID Vitals/I & O Vital Sign - Last 24 Hours 07/02/20 07/02/20 07/02/20 07/03/20 19:00 21:00 23:00 03:00 Temp 99.1 98.8 98.7 99.1 98.8 98.7 Pulse 89 90 92 Resp 22 22 20 B/P (MAP) 100/54 (69) 155/76 (102) 146/65 (92) Pulse Ox 99 99 95 O2 Delivery Room Air Room Air Room Air Room Air 07/03/20 07/03/20 07/03/20 07:00 08:00 10:59 Temp 98.5 98.7 98.5 98.7 Pulse 90 90 Resp 22 20 B/P (MAP) 101/62 (75) 125/74 (91) Pulse Ox 100 97 O2 Delivery Room Air Room Air Room Air Intake and Output 07/02/20 07/02/20 07/03/20 15:00 23:00 07:00 Intake Total 2000 ml 1000 ml Output Total 550 ml 400 ml 800 ml Balance -550 ml 1600 ml 200 ml Nutrition Consultation Dietary Evaluation: Recommendations by RD: Dietary education by RD, PPN/TPN Comments: REC adjust TPN to following to best meet nutrition needs: 100g AA, 270g dextrose, 30g lipids to provide 1508 calories (~65% est needs) and 100 grams protein (~100% est needs) Expected Outcomes/Goals: Nutrition support to meet >75% est needs- goal ongoing Malnutrition Findings: Food and Nutrition Intake (Mod: <75% est energy req 7days Body Fat Depletion (Non Severe: Mild Depletion Weight Status: Overweight Justicifation of Admission Dx: Justifications for Admission: Justification of Admission Dx: Yes Chronic Renal Failure: Intravenous Infusions (post surgical complication) KALI SHARMA MD Jul 03, 2020 16:16
[2020-07-03 19:00] VITALS: BP 110/68
[2020-07-03] MEDS ORDERED: DEXTROSE 70% IV SCH ×10 (22:00)
[2020-07-03] MEDS ORDERED: [UNRECOGNIZED DRUG - OTHER] IV SCH ×10 (22:00)
[2020-07-03] MEDS ORDERED: AMINO ACID IV SCH ×10 (22:00)
[2020-07-03] MEDS ORDERED: TOTAL PARENTERAL NUTRITION IV SCH ×10 (22:00)
[2020-07-03 23:00] VITALS: BP 119/77
[2020-07-04] MEDS: INSULIN LISPRO 300 UNITS/3 ML VIAL. SQ SCH ×3 (00:37→12:00)
[2020-07-04 03:00] VITALS: BP 120/78
[2020-07-04 05:28] LABS: BASO % 0 % (0-3); EOS # 0.1 x10^3/uL (0.0-0.7); EOS % 2 % (0-3); HEMATOCRIT 27.5 % (39.0-53.0); HEMOGLOBIN 8.9 g/dL (13.0-17.5); LYMPH % 33 % (24-48); MEAN CORPUSCULAR HEMOGLOBIN 30 pg (25-35); MEAN CORPUSCULAR HGB CONC 32 g/dL (31-37); MEAN CORPUSCULAR VOLUME 92 fL (79-100); MONO # 0.4 x10^3/uL (0.0-1.1); MONO % 6 % (0-9); NEUT # 3.6 x10^3/uL (1.8-7.7); NEUT % 58 % (31-73); PLATELET COUNT 89 x10^3/uL (140-400); RED BLOOD COUNT 2.99 x10^6/uL (4.30-5.70); RED CELL DISTRIBUTION WIDTH 16.5 % (11.5-14.5); WHITE BLOOD COUNT 6.1 x10^3/uL (4.0-11.0)
[2020-07-04 05:47] LABS: CALCIUM 9.1 mg/dL (8.5-10.1); GFR 39.7; POTASSIUM 4.1 mmol/L (3.5-5.1)
[2020-07-04 05:51] LABS: PHOSPHORUS 3.4 mg/dL (2.6-4.7)
[2020-07-04 06:54] LABS: PLT ESTIMATE DECREASED (ADEQUATE); POLYCHROMASIA SLIGHT
[2020-07-04 06:55] LABS: ANISOCYTOSIS SLIGHT
[2020-07-04 07:00] VITALS: BP 95/56
[2020-07-04] MEDS: PANTOPRAZOLE IV PUSH 40 MG VIAL. IVP SCH (07:30)
[2020-07-04] MEDS: IV DEXTROSE 5% 1,000 ML IV SCH (07:55)
[2020-07-04] MEDS: INSULIN GLARGINE SYRINGE. SQ SCH (09:00)
--- NOTE | 2020-07-04 09:00 | NUR ---
Lantus not given at this time. Patient NPO, patient pulled PICC out this am, TPN not infusing.
--- NOTE | 2020-07-04 09:28 | PDOC ---
DATE OF SERVICE DATE: 07/04/20 TIME: 09:28 SUBJECTIVE ROS stable OBJECTIVE Vital Signs Vital Signs Date Time Temp Pulse Resp B/P (MAP) Pulse Ox O2 Delivery O2 Flow Rate FiO2 07/04/20 07:00 98.2 90 18 95/56 (69) 100 Room Air 98.2 I & 0 Intake and Output 07/04/20 07:00 Intake Total 0 ml Output Total 2800 ml Balance -2800 ml Intake Oral 0 ml Output Urine Total 2800 ml # Voids 2 PHYSICAL EXAM Physical Exam General Appearance: no apparent distress Skin: warm Respiratory: decreased breath sounds Heart: S1S2 Abdomen: soft, bowel sounds present Genitourinary: bladder flat Extremities: pulses present Lopez + DIAGNOSIS/ASSESSMENT Assessment & Plan MAIRA - Cr peaked at 2.7, Improved to 2.0 HyperNatremia- Mild, Intermittent , Recommned Hypotonic fluid PEG tube dislodged, he is NPO as failed swallow study Acute metabolic encephalopathy -improved Dislodged PEG tube- will be replaced in 1 month Chronic kidney disease stage 3, likely secondary to hypertensive nephrosclerosis.Baseline appears to be ~2.2 Bilat Renal cysts Severe malnutrition COMMENT/RELEVANT DATA Meds Current Medications Medications (Trade) Dose Ordered Sig/Quinn Start Time Stop Time Status Last Admin Dose Admin Dextrose 1,000 ml @ 75 mls/hr [id number] 07/01/20 13:15 07/03/20 17:13 75 MLS/HR Dextrose (Dextrose 50%-Water Syringe) 12.5 gm PRN Q15MIN PRN 06/26/20 22:15 Dextrose/Sodium Chloride 1,000 ml @ 140 mls/hr Q7H9M 06/26/20 22:15 06/27/20 19:30 DC 06/27/20 12:30 140 MLS/HR Heparin Sodium (Porcine) (Heparin Sodium) 5,000 unit Q12HR 06/30/20 09:00 07/03/20 20:49 5,000 UNIT Info (Tpn Per Pharmacy) 1 each PRN DAILY PRN 06/27/20 09:15 07/03/20 12:57 1 EACH Insulin Glargine (Lantus Syringe) 40 unit BID 06/29/20 21:00 07/03/20 20:49 40 UNIT Insulin Human Lispro (HumaLOG) 0-9 UNITS Q6HRS 06/27/20 00:00 07/04/20 00:37 7 UNITS Lidocaine HCl (Buffered Lidocaine 1%) 3 ml 1X ONCE 06/27/20 13:15 06/27/20 13:16 DC 06/27/20 13:15 3 ML Pantoprazole Sodium (PROTONIX VIAL for IV PUSH) 40 mg DAILYAC 06/27/20 07:30 07/03/20 09:21 40 MG Piperacillin Sod/ Tazobactam Sod 4.5 gm/Sodium Chloride 100 ml @ 200 mls/hr 1X ONCE 06/26/20 14:45 06/26/20 15:14 DC 06/26/20 15:09 200 MLS/HR Potassium Acetate 50 meq/Potassium Phosphate 13.6 mmol/Magnesium Sulfate 10 meq/ Calcium Gluconate 10 meq/ Multivitamins 10 ml/Chromium/ Copper/Manganese/ Seleni/Zn 1 ml/ Total Parenteral Nutrition/Amino Acids/Dextrose/ Fat Emulsion Intravenous 2,040 ml @ 85 mls/hr TPN CONT 06/27/20 22:00 06/28/20 21:59 DC 06/27/20 21:18 85 MLS/HR Potassium Acetate 70 meq/Potassium Phosphate 13.6 mmol/Magnesium Sulfate 10 meq/ Calcium Gluconate 10 meq/ Multivitamins 10 ml/Chromium/ Copper/Manganese/ Seleni/Zn 1 ml/ Insulin Human Regular 10 unit/ Total Parenteral Nutrition/Amino Acids/Dextrose/ Fat Emulsion Intravenous 2,040 ml @ 85 mls/hr TPN CONT 06/28/20 22:00 06/29/20 21:59 DC 06/28/20 21:41 85 MLS/HR Potassium Acetate 70 meq/Potassium Phosphate 13.6 mmol/Magnesium Sulfate 10 meq/ Calcium Gluconate 10 meq/ Multivitamins 10 ml/Chromium/ Copper/Manganese/ Seleni/Zn 1 ml/ Insulin Human Regular 15 unit/ Total Parenteral Nutrition/Amino Acids/Dextrose/ Fat Emulsion Intravenous 2,040 ml @ 85 mls/hr TPN CONT 07/01/20 22:00 07/02/20 21:59 DC 07/01/20 21:19 85 MLS/HR Potassium Acetate 90 meq/Potassium Phosphate 13.6 mmol/Magnesium Sulfate 10 meq/ Calcium Gluconate 10 meq/ Multivitamins 10 ml/Chromium/ Copper/Manganese/ Seleni/Zn 1 ml/ Insulin Human Regular 15 unit/ Total Parenteral Nutrition/Amino Acids/Dextrose/ Fat Emulsion Intravenous 2,040 ml @ 85 mls/hr TPN CONT 07/02/20 22:00 07/03/20 21:59 DC 07/02/20 21:58 85 MLS/HR Potassium Acetate 90 meq/Potassium Phosphate 13.6 mmol/Magnesium Sulfate 10 meq/ Calcium Gluconate 10 meq/ Multivitamins 10 ml/Chromium/ Copper/Manganese/ Seleni/Zn 1 ml/ Insulin Human Regular 25 unit/ Total Parenteral Nutrition/Amino Acids/Dextrose/ Fat Emulsion Intravenous 2,040 ml @ 85 mls/hr TPN CONT 07/03/20 22:00 07/04/20 21:59 07/03/20 22:06 85 MLS/HR Lab Laboratory Tests Test 07/03/20 11:46 07/03/20 16:26 07/04/20 00:32 07/04/20 04:30 Glucose (Fingerstick) 246 mg/dL (70-99) 238 mg/dL (70-99) 262 mg/dL (70-99) White Blood Count 6.1 x10^3/uL (4.0-11.0) Red Blood Count 2.99 x10^6/uL (4.30-5.70) Hemoglobin 8.9 g/dL (13.0-17.5) Hematocrit 27.5 % (39.0-53.0) Mean Corpuscular Volume 92 fL (79-100) Mean Corpuscular Hemoglobin 30 pg (25-35) Mean Corpuscular Hemoglobin Concent 32 g/dL (31-37) Red Cell Distribution Width 16.5 % (11.5-14.5) Platelet Count 89 x10^3/uL (140-400) Neutrophils (%) (Auto) 58 % (31-73) Lymphocytes (%) (Auto) 33 % (24-48) Monocytes (%) (Auto) 6 % (0-9) Eosinophils (%) (Auto) 2 % (0-3) Basophils (%) (Auto) 0 % (0-3) Neutrophils # (Auto) 3.6 x10^3/uL (1.8-7.7) Lymphocytes # (Auto) 2.0 x10^3/uL (1.0-4.8) Monocytes # (Auto) 0.4 x10^3/uL (0.0-1.1) Eosinophils # (Auto) 0.1 x10^3/uL (0.0-0.7) Basophils # (Auto) 0.0 x10^3/uL (0.0-0.2) Platelet Estimate Decreased (ADEQUATE) Large Platelets Few Polychromasia Slight Anisocytosis Slight Sodium Level 146 mmol/L (136-145) Potassium Level 4.1 mmol/L (3.5-5.1) Chloride Level 111 mmol/L (98-107) Carbon Dioxide Level 27 mmol/L (21-32) Anion Gap 8 (6-14) Blood Urea Nitrogen 29 mg/dL (8-26) Creatinine 2.0 mg/dL (0.7-1.3) Estimated GFR (Cockcroft-Gault) 39.7 Glucose Level 159 mg/dL (70-99) Calcium Level 9.1 mg/dL (8.5-10.1) Phosphorus Level 3.4 mg/dL (2.6-4.7) Magnesium Level 2.0 mg/dL (1.8-2.4) Test 07/04/20 06:09 Glucose (Fingerstick) 152 mg/dL (70-99) Results All relevant outside records, renal labs, imaging studies, telemetry/EKG's were reviewed. Justicifation of Admission Dx: Justifications for Admission: Justification of Admission Dx: Yes Chronic Renal Failure: Intravenous Infusions (post surgical complication) BREANN RUIZ MD Jul 04, 2020 09:28
--- NOTE | 2020-07-04 10:29 | NUR ---
SUDEEP following. Spoke with RN and reviewed chart. Pt pulled out his PICC line. Spoke with Dr. Saavedra who put in orders to have the PICC placed again for TPN. Spoke with Freddy from [facility] and they have the TPN setup and are waiting on final insurance authorization. SUDEEP following. Addendum: 07/04/20 at 1206 by KIM SHEETS Freddy called to say [facility] now wants more information on pt's prior level of functioning. SUDEEP explained that this information is in all the PT/OT notes which have been provided. SUDEEP called Yakelin with [facility] at [phone], ext [phone] r/t this pending authorization ([id number]). SUDEEP explained that SNU is needed for PT/OT but also for TPN through PICC until PEG can be placed again and that can't care for pt in the home with this level of care need. Yakelin working on approval letter. Addendum: 07/04/20 at 1553 by KIM SHEETS SUDEEP obtained insurance authorization from Yakelin at [facility] (copy on chart). PICC was placed again. SUDEEP faxed verification of this to [facility] as they are working with [facility] regarding the TPN. Discharge orders obtained and phoned and faxed to [facility]dy [place]. RN to call report to [phone]. Transportation arranged by the facility for [id number]. Dtr notified by this SUDEEP. No further SW needs at this time.
[2020-07-04 11:00] VITALS: BP 94/60
--- NOTE | 2020-07-04 11:33 | PDOC ---
PROGRESS NOTES Date of Service: DATE: 07/04/20 TIME: 11:31 Chief Complaint Chief Complaint Acute metabolic encephalopathy NOS-improved Dislodged PEG tube Acute severe hypernatremia likely due to decreased p.o. intake and possible nephrogenic DI Severe malnutrition Acute on chronic renal failure Thrombocytopenia Normocytic anemia Hyperglycemia Start D5W at 75 Appreciate nephrology recommendations Appreciate GI recommendations Surgery consultedrecommended no surgical procedure at this time and will wait for PEG ostomy to close off before doing formal surgical procedure. Continue IV TPN Nephrology consulted for elevated sodium and acute renal failure versus CKD Pending urine electrolytes Trend sodium levels daily Consider dementia prevention protocol Provide adequate lighting (open curtains during the day, turn the lights off at night) Provide frequent personal contact with family, friends, and staff or TV Rehab screening ordered IV Haldol as needed for agitation, consider sitter as needed if non-redirectable agitation Avoid physical restraints, catheters or tubes, and benzodiazepines Nutrition consult if there is malnutrition or concern for vitamin deficiencies Continue IV fluids heparin DVT prophylaxis IV Protonix GI prophylaxis ADA diet Full code Discussed with RN and SW Dispo pending SNF placement is the [facility] History of Present Illness History of Present Illness 74-year-old male with past medical history of CABG, severe dementia, GERD, dyslipidemia, CKD, vascular disease, recent PEG tube placement on 06/21/2020 who comes to the ED because he recently pulled out his PEG tube. Daughter states that the PEG tube was leaking and they had to remove the abdominal binder. Moments later when they came back to try to feed him or given his medications through the PEG tube they realized that the PEG tube was already in his hand. Patient was recently discharged from the hospital after the PEG tube was placed. All of the history was obtained from the daughter and the who lives with the patient. Nursing facility options were discussed with the family at the last admission however they did not want the patient to go to a facility at that time. There was also no discussion for palliative care either. At that time, discussion was made to prolong life at that time and therefore a PEG tube was placed. Daughter at bedside states that the patient is fairly close to his baseline however he appears to be fairly weak. Patient is able to respond with one-word responses. Patient is alert and awake and oriented x1. Patient is not able to provide any parts of his history. Family meeting was held outside patient's room with and daughter. At this point, states that most of the patient's condition happened so quickly that the family did not have time to discuss hospice options or palliative care route. understands that the patient's condition is very severe and he has very poor prognosis. It was discussed in detail whether she should choose options for quality of life versus life prolonging measurements. At this time, family will continue to have discussions amongst himself to decide further planning for the patient. 06/27/2020 Patient seen and examined bedside today. No dramatic changes in his mental status. Responding appropriately with context of his severe dementia. Patient' s chart, labs, images were reviewed and discussed with RN 06/28/2020 No acute events overnight. Patient seen and examined bedside today. Improved mental status today and responding appropriately. Patient's chart, labs, images were reviewed and discussed with RN 06/29/2020 No acute events overnight. Patient's chart, labs, images were reviewed and discussed with RN 06/30/2020 No acute events overnight. Patient seen and examined bedside. Mental status is stable. No acute delirium overnight. Patient's chart, labs, images were reviewed and discussed with RN 07/01/2020 No acute events overnight. Patient seen and examined bedside. Improved mental status. Patient's chart, labs, images were reviewed and discussed with RN 07/02/2020 No acute events overnight. Patient seen and examined bedside. Mental status is stable. Sodium levels are still elevated at 152. Patient's chart, labs, images were reviewed and discussed with RN 07/03/2020 Patient seen and examined bedside. Does not answer questions this morning. No acute events overnight. Discussed with RN. 07/04/2020 Patient evaluated at bedside. He states he feels fine this morning. No acute events overnight. Patient stable for discharge back to [facility] with plan for PEG tube placement in 1 month. Greater than 35 minutes was spent managing the discharge of this patient. Vitals Vitals Vital Signs Date Time Temp Pulse Resp B/P (MAP) Pulse Ox O2 Delivery O2 Flow Rate FiO2 07/04/20 11:00 98.4 82 18 94/60 (71) 98 Room Air 98.4 Physical Exam Physical Exam GEN: No apparent distress. Alert and awake. Severely demented. Age- appropriate appearance HEENT: Normal cephalic, atraumatic, external auditory canals are patent NECK: Supple, no JVD, no thyromegaly was noted LUNGS: Bilateral clear to auscultation HEART: RRR, S1, S2 present. Peripheral pulses intact, no obvious murmurs noted ABDOMEN: PEG tube opening with clotted blood. Abdomen is soft and nontender to palpation. Bowel sounds are heard. There is no purulence draining or active bleeding at this time. EXTREMITIES: Without clubbing, cyanosis, or edema. Pedal pulses intact. Negative Homans sign General: Alert Heart: Regular rate Lungs: Clear Abdomen: Soft Extremities: No clubbing Skin: No breakdown Labs LABS Laboratory Tests Test 07/03/20 11:46 07/03/20 16:26 07/04/20 00:32 07/04/20 04:30 Glucose (Fingerstick) 246 mg/dL (70-99) 238 mg/dL (70-99) 262 mg/dL (70-99) White Blood Count 6.1 x10^3/uL (4.0-11.0) Red Blood Count 2.99 x10^6/uL (4.30-5.70) Hemoglobin 8.9 g/dL (13.0-17.5) Hematocrit 27.5 % (39.0-53.0) Mean Corpuscular Volume 92 fL (79-100) Mean Corpuscular Hemoglobin 30 pg (25-35) Mean Corpuscular Hemoglobin Concent 32 g/dL (31-37) Red Cell Distribution Width 16.5 % (11.5-14.5) Platelet Count 89 x10^3/uL (140-400) Neutrophils (%) (Auto) 58 % (31-73) Lymphocytes (%) (Auto) 33 % (24-48) Monocytes (%) (Auto) 6 % (0-9) Eosinophils (%) (Auto) 2 % (0-3) Basophils (%) (Auto) 0 % (0-3) Neutrophils # (Auto) 3.6 x10^3/uL (1.8-7.7) Lymphocytes # (Auto) 2.0 x10^3/uL (1.0-4.8) Monocytes # (Auto) 0.4 x10^3/uL (0.0-1.1) Eosinophils # (Auto) 0.1 x10^3/uL (0.0-0.7) Basophils # (Auto) 0.0 x10^3/uL (0.0-0.2) Platelet Estimate Decreased (ADEQUATE) Large Platelets Few Polychromasia Slight Anisocytosis Slight Sodium Level 146 mmol/L (136-145) Potassium Level 4.1 mmol/L (3.5-5.1) Chloride Level 111 mmol/L (98-107) Carbon Dioxide Level 27 mmol/L (21-32) Anion Gap 8 (6-14) Blood Urea Nitrogen 29 mg/dL (8-26) Creatinine 2.0 mg/dL (0.7-1.3) Estimated GFR (Cockcroft-Gault) 39.7 Glucose Level 159 mg/dL (70-99) Calcium Level 9.1 mg/dL (8.5-10.1) Phosphorus Level 3.4 mg/dL (2.6-4.7) Magnesium Level 2.0 mg/dL (1.8-2.4) Test 07/04/20 06:09 Glucose (Fingerstick) 152 mg/dL (70-99) Review of Systems Review of Systems Unable to obtain due to dementia Assessment and Plan Assessmemt and Plan Problems Medical Problems: (1) Alzheimer's dementia Status: Acute (2) Anemia Status: Acute (3) CKD (chronic kidney disease) Status: Acute (4) Hypernatremia Status: Acute (5) PEG tube malfunction Status: Acute Plan: Stable for discharge back to [facility]. Patient pulled out his PICC line overnight, and this will will be replaced prior to DC today. Comment Review of Relevant I have reviewed the following items miles (where applicable) has been applied. Labs Laboratory Tests Test 07/02/20 15:58 07/02/20 20:35 07/03/20 00:01 07/03/20 05:17 Glucose (Fingerstick) 256 mg/dL (70-99) 218 mg/dL (70-99) 258 mg/dL (70-99) 202 mg/dL (70-99) Test 07/03/20 05:20 07/03/20 07:20 07/03/20 11:46 07/03/20 16:26 Sodium Level 144 mmol/L (136-145) Potassium Level 4.3 mmol/L (3.5-5.1) Chloride Level 109 mmol/L (98-107) Carbon Dioxide Level 28 mmol/L (21-32) Anion Gap 7 (6-14) Blood Urea Nitrogen 31 mg/dL (8-26) Creatinine 2.1 mg/dL (0.7-1.3) Estimated GFR (Cockcroft-Gault) 37.5 Glucose Level 208 mg/dL (70-99) Calcium Level 8.8 mg/dL (8.5-10.1) Glucose (Fingerstick) 191 mg/dL (70-99) 246 mg/dL (70-99) 238 mg/dL (70-99) Test 07/04/20 00:32 07/04/20 04:30 07/04/20 06:09 Glucose (Fingerstick) 262 mg/dL (70-99) 152 mg/dL (70-99) White Blood Count 6.1 x10^3/uL (4.0-11.0) Red Blood Count 2.99 x10^6/uL (4.30-5.70) Hemoglobin 8.9 g/dL (13.0-17.5) Hematocrit 27.5 % (39.0-53.0) Mean Corpuscular Volume 92 fL (79-100) Mean Corpuscular Hemoglobin 30 pg (25-35) Mean Corpuscular Hemoglobin Concent 32 g/dL (31-37) Red Cell Distribution Width 16.5 % (11.5-14.5) Platelet Count 89 x10^3/uL (140-400) Neutrophils (%) (Auto) 58 % (31-73) Lymphocytes (%) (Auto) 33 % (24-48) Monocytes (%) (Auto) 6 % (0-9) Eosinophils (%) (Auto) 2 % (0-3) Basophils (%) (Auto) 0 % (0-3) Neutrophils # (Auto) 3.6 x10^3/uL (1.8-7.7) Lymphocytes # (Auto) 2.0 x10^3/uL (1.0-4.8) Monocytes # (Auto) 0.4 x10^3/uL (0.0-1.1) Eosinophils # (Auto) 0.1 x10^3/uL (0.0-0.7) Basophils # (Auto) 0.0 x10^3/uL (0.0-0.2) Platelet Estimate Decreased (ADEQUATE) Large Platelets Few Polychromasia Slight Anisocytosis Slight Sodium Level 146 mmol/L (136-145) Potassium Level 4.1 mmol/L (3.5-5.1) Chloride Level 111 mmol/L (98-107) Carbon Dioxide Level 27 mmol/L (21-32) Anion Gap 8 (6-14) Blood Urea Nitrogen 29 mg/dL (8-26) Creatinine 2.0 mg/dL (0.7-1.3) Estimated GFR (Cockcroft-Gault) 39.7 Glucose Level 159 mg/dL (70-99) Calcium Level 9.1 mg/dL (8.5-10.1) Phosphorus Level 3.4 mg/dL (2.6-4.7) Magnesium Level 2.0 mg/dL (1.8-2.4) Laboratory Tests Test 07/03/20 11:46 07/03/20 16:26 07/04/20 00:32 07/04/20 04:30 Glucose (Fingerstick) 246 mg/dL (70-99) 238 mg/dL (70-99) 262 mg/dL (70-99) White Blood Count 6.1 x10^3/uL (4.0-11.0) Red Blood Count 2.99 x10^6/uL (4.30-5.70) Hemoglobin 8.9 g/dL (13.0-17.5) Hematocrit 27.5 % (39.0-53.0) Mean Corpuscular Volume 92 fL (79-100) Mean Corpuscular Hemoglobin 30 pg (25-35) Mean Corpuscular Hemoglobin Concent 32 g/dL (31-37) Red Cell Distribution Width 16.5 % (11.5-14.5) Platelet Count 89 x10^3/uL (140-400) Neutrophils (%) (Auto) 58 % (31-73) Lymphocytes (%) (Auto) 33 % (24-48) Monocytes (%) (Auto) 6 % (0-9) Eosinophils (%) (Auto) 2 % (0-3) Basophils (%) (Auto) 0 % (0-3) Neutrophils # (Auto) 3.6 x10^3/uL (1.8-7.7) Lymphocytes # (Auto) 2.0 x10^3/uL (1.0-4.8) Monocytes # (Auto) 0.4 x10^3/uL (0.0-1.1) Eosinophils # (Auto) 0.1 x10^3/uL (0.0-0.7) Basophils # (Auto) 0.0 x10^3/uL (0.0-0.2) Platelet Estimate Decreased (ADEQUATE) Large Platelets Few Polychromasia Slight Anisocytosis Slight Sodium Level 146 mmol/L (136-145) Potassium Level 4.1 mmol/L (3.5-5.1) Chloride Level 111 mmol/L (98-107) Carbon Dioxide Level 27 mmol/L (21-32) Anion Gap 8 (6-14) Blood Urea Nitrogen 29 mg/dL (8-26) Creatinine 2.0 mg/dL (0.7-1.3) Estimated GFR (Cockcroft-Gault) 39.7 Glucose Level 159 mg/dL (70-99) Calcium Level 9.1 mg/dL (8.5-10.1) Phosphorus Level 3.4 mg/dL (2.6-4.7) Magnesium Level 2.0 mg/dL (1.8-2.4) Test 07/04/20 06:09 Glucose (Fingerstick) 152 mg/dL (70-99) Microbiology 06/26/20 Urine Culture - Final, Complete 06/26/20 Blood Culture - Final, Complete NO GROWTH AFTER 5 DAYS Medications Current Medications Piperacillin Sod/ Tazobactam Sod 4.5 gm/Sodium Chloride 100 ml @ 200 mls/hr 1X ONCE IV Last administered on 06/26/20at 15:09; Start 06/26/20 at 14:45; Stop 06/26/20 at 15:14; Status DC Pantoprazole Sodium (PROTONIX VIAL for IV PUSH) 40 mg DAILY IVP Last administered on 06/26/20at 16:58; Start 06/26/20 at 16:30; Stop 06/26/20 at 20:20; Status DC Pantoprazole Sodium (PROTONIX VIAL for IV PUSH) 40 mg DAILYAC IVP Last administered on 07/03/20at 09:21; Start 06/27/20 at 07:30 Insulin Human Lispro (HumaLOG) 0-9 UNITS Q6HRS SQ Last administered on 07/04/20at 00:37; Start 06/27/20 at 00:00 Dextrose (Dextrose 50%-Water Syringe) 12.5 gm PRN Q15MIN PRN IV SEE COMMENTS; Start 06/26/20 at 22:15 Dextrose/Sodium Chloride 1,000 ml @ 140 mls/hr Q7H9M IV Last administered on 06/27/20at 12:30; Start 06/26/20 at 22:15; Stop 06/27/20 at 19:30; Status DC Info (Tpn Per Pharmacy) 1 each PRN DAILY PRN MC SEE COMMENTS Last administered on 07/03/20at 12:57; Start 06/27/20 at 09:15 Potassium Acetate 50 meq/Potassium Phosphate 13.6 mmol/Magnesium Sulfate 10 meq/ Calcium Gluconate 10 meq/ Multivitamins 10 ml/Chromium/ Copper/Manganese/ Seleni/Zn 1 ml/ Total Parenteral Nutrition/Amino Acids/Dextrose/ Fat Emulsion In travenous 2,040 ml @ 85 mls/hr TPN CONT IV Last administered on 06/27/20at 21:18; Start 06/27/20 at 22:00; Stop 06/28/20 at 21:59; Status DC Lidocaine HCl (Buffered Lidocaine 1%) 3 ml STK-MED ONCE .ROUTE ; Start 06/27/20 at 12:54; Stop 06/27/20 at 12:55; Status DC Lidocaine HCl (Buffered Lidocaine 1%) 3 ml 1X ONCE INJ Last administered on 06/27/20at 13:15; Start 06/27/20 at 13:15; Stop 06/27/20 at 13:16; Status DC Dextrose 1,000 ml @ 140 mls/hr Q7H9M IV Last administered on 06/28/20at 05:26; Start 06/27/20 at 13:45; Stop 06/28/20 at 13:05; Status DC Insulin Glargine (Lantus Syringe) 40 unit QHS SQ Last administered on 06/28/20at 21:42; Start 06/27/20 at 21:00; Stop 06/29/20 at 11:26; Status DC Potassium Acetate 70 meq/Potassium Phosphate 13.6 mmol/Magnesium Sulfate 10 meq/ Calcium Gluconate 10 meq/ Multivitamins 10 ml/Chromium/ Copper/Manganese/ Seleni/Zn 1 ml/ Insulin Human Regular 10 unit/ Total Parenteral Nutrition/Amino Acids/Dextrose/ Fat Emulsion Intravenous 2,040 ml @ 85 mls/hr TPN CONT IV Last administered on 06/28/20at 21:41; Start 06/28/20 at 22:00; Stop 06/29/20 at 21:59; Status DC Insulin Glargine (Lantus Syringe) 40 unit QAM SQ Last administered on 06/29/20at 10:00; Start 06/29/20 at 09:00; Stop 06/29/20 at 11:26; Status DC Insulin Glargine (Lantus Syringe) 40 unit BID SQ Last administered on 07/03/20at 20:49; Start 06/29/20 at 21:00 Potassium Acetate 70 meq/Potassium Phosphate 13.6 mmol/Magnesium Sulfate 10 meq/ Calcium Gluconate 10 meq/ Multivitamins 10 ml/Chromium/ Copper/Manganese/ Seleni/Zn 1 ml/ Insulin Human Regular 15 unit/ Total Parenteral Nutrition/Amino Acids/Dextrose/ Fat Emulsion Intravenous 2,040 ml @ 85 mls/hr TPN CONT IV Last administered on 06/29/20at 22:08; Start 06/29/20 at 22:00; Stop 06/30/20 at 21:59; Status DC Heparin Sodium (Porcine) (Heparin Sodium) 5,000 unit Q12HR SQ Last administered on 07/03/20at 20:49; Start 06/30/20 at 09:00 Potassium Acetate 70 meq/Potassium Phosphate 13.6 mmol/Magnesium Sulfate 10 meq/ Calcium Gluconate 10 meq/ Multivitamins 10 ml/Chromium/ Copper/Manganese/ Seleni/Zn 1 ml/ Insulin Human Regular 15 unit/ Total Parenteral Nutrition/Amino Acids/Dextrose/ Fat Emulsion Intravenous 2,040 ml @ 85 mls/hr TPN CONT IV Last administered on 06/30/20at 23:47; Start 06/30/20 at 22:00; Stop 07/01/20 at 21:59; Status DC Dextrose 1,000 ml @ 75 mls/hr [id number] IV Last administered on 07/03/20at 17:13; Start 07/01/20 at 13:15 Potassium Acetate 70 meq/Potassium Phosphate 13.6 mmol/Magnesium Sulfate 10 meq/ Calcium Gluconate 10 meq/ Multivitamins 10 ml/Chromium/ Copper/Manganese/ Seleni/Zn 1 ml/ Insulin Human Regular 15 unit/ Total Parenteral Nutrition/Amino Acids/Dextrose/ Fat Emulsion Intravenous 2,040 ml @ 85 mls/hr TPN CONT IV Last administered on 07/01/20at 21:19; Start 07/01/20 at 22:00; Stop 07/02/20 at 21:59; Status DC Potassium Acetate 90 meq/Potassium Phosphate 13.6 mmol/Magnesium Sulfate 10 meq/ Calcium Gluconate 10 meq/ Multivitamins 10 ml/Chromium/ Copper/Manganese/ Seleni/Zn 1 ml/ Insulin Human Regular 15 unit/ Total Parenteral Nutrition/Amino Acids/Dextrose/ Fat Emulsion Intravenous 2,040 ml @ 85 mls/hr TPN CONT IV Last administered on 07/02/20at 21:58; Start 07/02/20 at 22:00; Stop 07/03/20 at 21:59; Status DC Potassium Acetate 90 meq/Potassium Phosphate 13.6 mmol/Magnesium Sulfate 10 meq/ Calcium Gluconate 10 meq/ Multivitamins 10 ml/Chromium/ Copper/Manganese/ Seleni/Zn 1 ml/ Insulin Human Regular 25 unit/ Total Parenteral Nutrition/Amino Acids/Dextrose/ Fat Emulsion Intravenous 2,040 ml @ 85 mls/hr TPN CONT IV Last administered on 07/03/20at 22:06; Start 07/03/20 at 22:00; Stop 07/04/20 at 21:59 Active Scripts Active [Acetaminophen] 500 MG Tablet 500 Mg PO PRN Q6HRS PRN Coreg (Carvedilol) 6.25 Mg Tablet 6.25 Mg PO BIDWMEALS Reported Famotidine 20 Mg Tablet 20 Mg PO BIDAC Levemir Flextouch (Insulin Detemir) 100 Unit/1 Ml Insuln.pen 42 Unit SQ TIDAC Flonase Allergy Relief (Fluticasone Propionate) 9.9 Ml [place].susp 2 Sprays NS DAILY Aspirin 81 Mg Tab.chew 1 Tab PO DAILY Atorvastatin Calcium 80 Mg Tablet 1 Tab PO HS Calcium (Calcium Carbonate) 500 Mg Tablet 500 Mg PO BID92 Vitamin D (Cholecalciferol (Vitamin D3)) 2,000 Unit Capsule 2,000 Unit PO BID94 Trazodone Hcl 50 Mg Tablet 50 Mg PO PRN QHS PRN [place] Carbonate 300 Mg Tablet 300 Mg PO BID Vitals/I & O Vital Sign - Last 24 Hours 07/03/20 07/03/20 07/03/20 07/03/20 15:00 19:00 20:00 23:00 Temp 98.7 98.0 98.7 98.7 98.0 98.7 Pulse 81 82 82 Resp 20 B/P (MAP) 156/56 (89) 110/68 (82) 119/77 (91) Pulse Ox 99 100 98 O2 Delivery Room Air Room Air Room Air Room Air 07/04/20 07/04/20 07/04/20 03:00 07:00 11:00 Temp 98.6 98.2 98.4 98.6 98.2 98.4 Pulse 80 90 82 Resp 20 18 18 B/P (MAP) 120/78 (92) 95/56 (69) 94/60 (71) Pulse Ox 97 100 98 O2 Delivery Room Air Room Air Room Air Intake and Output 07/03/20 07/03/20 07/04/20 15:00 23:00 07:00 Intake Total 0 ml 0 ml 0 ml Output Total 800 ml 1400 ml 600 ml Balance -800 ml -1400 ml -600 ml Nutrition Consultation Dietary Evaluation: Recommendations by RD: Dietary education by RD, PPN/TPN Comments: REC adjust TPN to following to best meet nutrition needs: 100g AA, 270g dextrose, 30g lipids to provide 1508 calories (~65% est needs) and 100 grams protein (~100% est needs) Expected Outcomes/Goals: Nutrition support to meet >75% est needs- goal ongoing Malnutrition Findings: Food and Nutrition Intake (Mod: <75% est energy req 7days Body Fat Depletion (Non Severe: Mild Depletion Weight Status: Overweight Justicifation of Admission Dx: Justifications for Admission: Justification of Admission Dx: Yes Chronic Renal Failure: Intravenous Infusions (post surgical complication) KALI SHARMA MD Jul 04, 2020 11:33
--- NOTE | 2020-07-04 11:34 | NUR ---
Wound/Ostomy Care Wound Type/Assessment: Left upper abdomen previous PEG tube site, Left upper shoulder skin tear. Wounds cleansed and assessed. Treatment Recommendations/Plan: Recommendations for xeroform gauze and cover with telfa dressing to left shoulder and to left abdomen cover with Aquacel Ag and foam dressing. Change both dressing on 07/07 and 07/09. Wound care will follow up on 07/11. Education provided: Patient is alert with confusion. Offloading surface/device: N/A Recommended Referrals/Tests: N/A Discharge Recommendations for dressings: Continue current treatment until wound is healed. No other wounds noted. Dressing change instructions left in room. Bed lowered and call light in reach. Will follow patient regarding wound care.
--- NOTE | 2020-07-04 11:44 | SNU/HH DC ---
DISCHARGE ORDERS DISCHARGE INFORMATION: DISCHARGE DATE: Jul 04, 2020 FINAL DIAGNOSIS Problems Medical Problems: (1) Alzheimer's dementia Status: Acute (2) Anemia Status: Acute (3) CKD (chronic kidney disease) Status: Acute (4) Hypernatremia Status: Acute (5) PEG tube malfunction Status: Acute CONDITION ON DISCHARGE: Stable CODE STATUS: Code Status: Full [facility]: SNF STAY <30 DAYS: No HOSPICE: HOSPICE: No HOSPICE EVAL & TREAT: No LTAC: ADMIT TO LTAC: No POST DISCHARGE ORDERS: ACTIVITY ORDERS: Activity as tolerated WEIGHT BEARING STATUS: As tolerated DIET AFTER DISCHARGE: NPO (TPN per pharmacy for 1 month until PEG tube can be placed) WOUND/INCISION CARE: Keep wound/cast CDI, Change dressing, Other, see below CHECKS AFTER DISCHARGE: CHECKS AFTER DISCHARGE: Check blood press - daily, Check blood sugar, ac/hs, Check your Temp as needed, Weigh Yourself Daily FOLLOW-UP: LAB ORDERS FOR FOLLOW-UP: CMP + Magnesium weekly TREATMENT/EQUIPMENT ORDERS: ADAPTIVE EQUIPMENT NEEDED: None Physical Therapy For: Evalulation/Treatment Occupational Therapy For: Evaluation/Treatment Speech Language Pathology For: Evaluation/Treatment DISCHARGE MEDICATIONS: Home Meds Active Scripts [Acetaminophen] 500 MG TABLET No Conflict Check, 500 MG PO PRN Q6HRS PRN for PAIN / TEMP Prov:MARIE COON MD 02/07/15 Carvedilol (COREG ) 6.25 Mg Tablet, 6.25 MG PO BIDWMEALS, #60 Prov:MARIE COON MD 02/07/15 Reported Medications Famotidine (FAMOTIDINE) 20 Mg Tablet, 20 MG PO BIDAC for stomach acid, TAB 06/17/20 Insulin Detemir (Levemir Flextouch) 100 Unit/1 Ml Insuln.pen, 42 UNIT SQ TIDAC for hyperglycemia, SYR 06/17/20 Fluticasone Propionate (Flonase Allergy Relief) 9.9 Ml [place].susp, 2 SPRAYS NS DAILY, BOTTLE 03/28/17 Aspirin (ASPIRIN) 81 Mg Tab.chew, 1 TAB PO DAILY, #30 TAB 3 Refills 05/29/15 Atorvastatin Calcium (ATORVASTATIN CALCIUM) 80 Mg Tablet, 1 TAB PO HS, #30 TAB 5 Refills 05/29/15 Calcium Carbonate (CALCIUM) 500 Mg Tablet, 500 MG PO BID92 02/01/15 Cholecalciferol (Vitamin D3) (VITAMIN D) 2,000 Unit Capsule, 2000 UNIT PO BID94 02/01/15 Trazodone Hcl (TRAZODONE HCL) 50 Mg Tablet, 50 MG PO PRN QHS PRN for INSOMNIA, TAB 02/01/15 [place] Carbonate (LITHIUM CARBONATE) 300 Mg Tablet, 300 MG PO BID, #2 02/01/15 KALI SHARMA MD Jul 04, 2020 11:44
--- NOTE | 2020-07-04 11:58 | PDOC3 ---
Discharge Summary Visit Information Date of Admission: Jun 26, 2020 Date of Discharge: Jul 04, 2020 Final Diagnosis Problems Medical Problems: (1) Alzheimer's dementia Status: Acute (2) Anemia Status: Acute (3) CKD (chronic kidney disease) Status: Acute (4) Hypernatremia Status: Acute (5) PEG tube malfunction Status: Acute Brief Hospital Course Allergies Allergies Coded Allergies Type Severity Reaction Last Updated Verified No Known Drug Allergies 06/23/20 No Vital Signs Vital Signs Date Time Temp Pulse Resp B/P (MAP) Pulse Ox O2 Delivery O2 Flow Rate FiO2 07/04/20 11:00 98.4 82 18 94/60 (71) 98 Room Air 98.4 Lab Results Laboratory Tests Test 07/02/20 15:58 07/02/20 20:35 07/03/20 00:01 07/03/20 05:17 Glucose (Fingerstick) 256 mg/dL (70-99) 218 mg/dL (70-99) 258 mg/dL (70-99) 202 mg/dL (70-99) Test 07/03/20 05:20 07/03/20 07:20 07/03/20 11:46 07/03/20 16:26 Sodium Level 144 mmol/L (136-145) Potassium Level 4.3 mmol/L (3.5-5.1) Chloride Level 109 mmol/L (98-107) Carbon Dioxide Level 28 mmol/L (21-32) Anion Gap 7 (6-14) Blood Urea Nitrogen 31 mg/dL (8-26) Creatinine 2.1 mg/dL (0.7-1.3) Estimated GFR (Cockcroft-Gault) 37.5 Glucose Level 208 mg/dL (70-99) Calcium Level 8.8 mg/dL (8.5-10.1) Glucose (Fingerstick) 191 mg/dL (70-99) 246 mg/dL (70-99) 238 mg/dL (70-99) Test 07/04/20 00:32 07/04/20 04:30 07/04/20 06:09 Glucose (Fingerstick) 262 mg/dL (70-99) 152 mg/dL (70-99) White Blood Count 6.1 x10^3/uL (4.0-11.0) Red Blood Count 2.99 x10^6/uL (4.30-5.70) Hemoglobin 8.9 g/dL (13.0-17.5) Hematocrit 27.5 % (39.0-53.0) Mean Corpuscular Volume 92 fL (79-100) Mean Corpuscular Hemoglobin 30 pg (25-35) Mean Corpuscular Hemoglobin Concent 32 g/dL (31-37) Red Cell Distribution Width 16.5 % (11.5-14.5) Platelet Count 89 x10^3/uL (140-400) Neutrophils (%) (Auto) 58 % (31-73) Lymphocytes (%) (Auto) 33 % (24-48) Monocytes (%) (Auto) 6 % (0-9) Eosinophils (%) (Auto) 2 % (0-3) Basophils (%) (Auto) 0 % (0-3) Neutrophils # (Auto) 3.6 x10^3/uL (1.8-7.7) Lymphocytes # (Auto) 2.0 x10^3/uL (1.0-4.8) Monocytes # (Auto) 0.4 x10^3/uL (0.0-1.1) Eosinophils # (Auto) 0.1 x10^3/uL (0.0-0.7) Basophils # (Auto) 0.0 x10^3/uL (0.0-0.2) Platelet Estimate Decreased (ADEQUATE) Large Platelets Few Polychromasia Slight Anisocytosis Slight Sodium Level 146 mmol/L (136-145) Potassium Level 4.1 mmol/L (3.5-5.1) Chloride Level 111 mmol/L (98-107) Carbon Dioxide Level 27 mmol/L (21-32) Anion Gap 8 (6-14) Blood Urea Nitrogen 29 mg/dL (8-26) Creatinine 2.0 mg/dL (0.7-1.3) Estimated GFR (Cockcroft-Gault) 39.7 Glucose Level 159 mg/dL (70-99) Calcium Level 9.1 mg/dL (8.5-10.1) Phosphorus Level 3.4 mg/dL (2.6-4.7) Magnesium Level 2.0 mg/dL (1.8-2.4) Laboratory Tests Test 07/03/20 16:26 07/04/20 00:32 07/04/20 04:30 07/04/20 06:09 Glucose (Fingerstick) 238 mg/dL (70-99) 262 mg/dL (70-99) 152 mg/dL (70-99) White Blood Count 6.1 x10^3/uL (4.0-11.0) Red Blood Count 2.99 x10^6/uL (4.30-5.70) Hemoglobin 8.9 g/dL (13.0-17.5) Hematocrit 27.5 % (39.0-53.0) Mean Corpuscular Volume 92 fL (79-100) Mean Corpuscular Hemoglobin 30 pg (25-35) Mean Corpuscular Hemoglobin Concent 32 g/dL (31-37) Red Cell Distribution Width 16.5 % (11.5-14.5) Platelet Count 89 x10^3/uL (140-400) Neutrophils (%) (Auto) 58 % (31-73) Lymphocytes (%) (Auto) 33 % (24-48) Monocytes (%) (Auto) 6 % (0-9) Eosinophils (%) (Auto) 2 % (0-3) Basophils (%) (Auto) 0 % (0-3) Neutrophils # (Auto) 3.6 x10^3/uL (1.8-7.7) Lymphocytes # (Auto) 2.0 x10^3/uL (1.0-4.8) Monocytes # (Auto) 0.4 x10^3/uL (0.0-1.1) Eosinophils # (Auto) 0.1 x10^3/uL (0.0-0.7) Basophils # (Auto) 0.0 x10^3/uL (0.0-0.2) Platelet Estimate Decreased (ADEQUATE) Large Platelets Few Polychromasia Slight Anisocytosis Slight Sodium Level 146 mmol/L (136-145) Potassium Level 4.1 mmol/L (3.5-5.1) Chloride Level 111 mmol/L (98-107) Carbon Dioxide Level 27 mmol/L (21-32) Anion Gap 8 (6-14) Blood Urea Nitrogen 29 mg/dL (8-26) Creatinine 2.0 mg/dL (0.7-1.3) Estimated GFR (Cockcroft-Gault) 39.7 Glucose Level 159 mg/dL (70-99) Calcium Level 9.1 mg/dL (8.5-10.1) Phosphorus Level 3.4 mg/dL (2.6-4.7) Magnesium Level 2.0 mg/dL (1.8-2.4) Brief Hospital Course Mr. Bridges is a 74 old male with dementia who presented with PEG tube dislodgment. Patient comes from home and reportedly removed his home PEG tube that was placed by Dr. Franco 3 days prior. Consults were placed to GI and general surgery. Patient was placed on TPN the decision to replace the PEG tube once the site has healed. Continue TPN until possible surgical G tube placement in 1 month. Stable for discharge to [facility]. Assessment Assessment PEG tube dislodgment Discharge Information Condition at Discharge: Stable Follow Up: Weeks Disposition/Orders: D/C to Another Facility Scheduled Aspirin (Aspirin) 81 Mg Tab.chew, 1 TAB PO DAILY, #30 Ref 3 (Reported) Entered as Reported by: ANUSHA GRANT on 05/29/15 1248 Atorvastatin Calcium (Atorvastatin Calcium) 80 Mg Tablet, 1 TAB PO HS, #30 Ref 5 (Reported) Entered as Reported by: ANUSHA GRANT on 05/29/15 1248 Calcium Carbonate (Calcium) 500 Mg Tablet, 500 MG PO BID92, (Reported) Entered as Reported by: Lisa Conley on 02/01/15 2100 Carvedilol (Coreg ) 6.25 Mg Tablet, 6.25 MG PO BIDWMEALS, #60 Prescribed by: MARIE COON on 02/07/15 1035 Cholecalciferol (Vitamin D3) (Vitamin D) 2,000 Unit Capsule, 2,000 UNIT PO BID94, (Reported) Entered as Reported by: Lisa Conley on 02/01/15 2100 Famotidine (Famotidine) 20 Mg Tablet, 20 MG PO BIDAC for stomach acid, (Reported) Entered as Reported by: KATERIN CONTI on 06/17/20 1135 Fluticasone Propionate (Flonase Allergy Relief) 9.9 Ml [place].susp, 2 SPRAYS NS DAILY, (Reported) Entered as Reported by: STACIA SHETH on 03/28/17 0820 Insulin Detemir (Levemir Flextouch) 100 Unit/1 Ml Insuln.pen, 42 UNIT SQ TIDAC for hyperglycemia, (Reported) Entered as Reported by: KATERIN CONTI on 06/17/20 1135 [place] Carbonate ([place] Carbonate) 300 Mg Tablet, 300 MG PO BID, #2 (Reported) Entered as Reported by: Lisa Conley on 02/01/152052 Scheduled PRN Trazodone Hcl (Trazodone Hcl) 50 Mg Tablet, 50 MG PO PRN QHS PRN for INSOMNIA, (Reported) Entered as Reported by: Lisa Conley on 02/01/15 2100 [Acetaminophen] 500 MG TABLET, 500 MG PO PRN Q6HRS PRN for PAIN / TEMP Prescribed by: MARIE COON on 02/07/15 1035 Justicifation of Admission Dx: Justifications for Admission: Justification of Admission Dx: Yes Chronic Renal Failure: Intravenous Infusions (post surgical complication) KALI SHARMA MD Jul 04, 2020 11:58
--- NOTE | 2020-07-04 12:25 | PDOC ---
Date of Service: DATE: 07/04/20 TIME: 12:24 Subjective: Subjective: Says hi, denies pain. Objective: Objective: D/w nurse - DC today? - pulled PICC, to have replaced. Vital Signs: Vital Signs Date Time Temp Pulse Resp B/P (MAP) Pulse Ox O2 Delivery O2 Flow Rate FiO2 07/04/20 11:00 98.4 82 18 94/60 (71) 98 Room Air 98.4 Labs: Laboratory Tests Test 07/03/20 16:26 07/04/20 00:32 07/04/20 06:09 Glucose (Fingerstick) 238 mg/dL (70-99) 262 mg/dL (70-99) 152 mg/dL (70-99) PE: GEN: chronically ill LUNGS: CTAB HEART: RRR ABD: soft, non-tender NEURO/PSYCH: awake and alert A/P: Dementia, dysphagia -- Plans for PICC replacement. Surgery has seen for possible G-tube placement in ~1 month. Dc per primary. Justicifation of Admission Dx: Justifications for Admission: Justification of Admission Dx: Yes Chronic Renal Failure: Intravenous Infusions (post surgical complication) RIAN PARRISH Jul 04, 2020 12:25
[2020-07-04] MEDS: TPN PER PHARMACY MC PRN (12:30)
--- NOTE | 2020-07-04 12:30 | NUR ---
Pharmacy TPN Dosing Note S: ELIOSHEKHAR ALAS is a 74 year old M Currently receiving Central Continuous TPN started 06/27/20 B:Pertinent PMH: PEG MALFUNCTION. Continue TPN till possible G-Tube placement Height: 5 feet, 10 inches Weight: 95.4 kg Current diet: NPO LABS: Sodium: 146 Potassium: 4.1 Chloride: 111 Calcium: 9.1 Corrected Calcium: 10.14 Magnesium: 2.0 CO2: 27 SCr: 2 Glucose: 159 Albumin: 2.7 AST: 18 ALT: 37 TPN FORMULA: TPN TYPE: Central Continuous AMINO ACIDS: 100 gm DEXTROSE: 270 gm LIPIDS: 30 gm SODIUM CHLORIDE: - mEq SODIUM ACETATE: - mEq SODIUM PHOSPHATE: - mmol POTASSIUM CHLORIDE: - mEq POTASSIUM ACETATE: 90 mEq POTASSIUM PHOSPHATE: 13.6 mmol MAGNESIUM: 10 mEq CALCIUM: 10 mEq INSULIN: 25 units MULTIPLE VITAMIN: 10 ml TRACE ELEMENTS: 1 ml(s) TPN PLAN: 07/04 Na anc Cl continue to be high, none in tpn. Increase AA to 100g per dietary rec. Otherwise continue same tpn R: Continue TPN as ordered Will monitor electrolytes, glucose, and tolerance to TPN. PAULETTE MIRANDA [facility], 07/04/20 [id number]
[2020-07-04] MEDS ORDERED: LIDOCAINE WITH 8.4% SOD BICARB 3 ML DISP.SYRIN. ONE (12:33)
[2020-07-04] MEDS ORDERED: LIDOCAINE WITH 8.4% SOD BICARB 3 ML DISP.SYRIN. INJ ONE (12:45)
--- NOTE | 2020-07-04 13:22 | RAD ---
Exam: Fluoroscopic and ultrasound guided right percutaneous inserted central venous catheter placement 07/04/2020 11:19 AM .Indication: PICC pulled out, gets TPN, RN TO CALL WHEN CONSENTS SIGNED Technique: Informed oral and written consent were obtained. The right upper extremity was prepped and draped using sterile barrier technique. All elements of maximal sterile barrier technique including the use of a cap, mask, sterile gown, sterile gloves, large sterile sheet, appropriate hand hygiene, and 2% chlorhexidine for cutaneous antisepsis (or acceptable alternative antiseptic per current guidelines) were followed for this procedure.. Real-time ultrasound demonstrated a patent right basilic vein which was prepped and draped in usual sterile fashion. 1% lidocaine used for local anesthesia. Using real-time ultrasound guidance the access needle percutaneously punctured the selected right basilic vein. Reference ultrasound images were saved to the medical record. A guidewire was advanced through the needle to the cavoatrial junction, and a peel-away sheath placed. The catheter was cut to length and inserted through the peel-away sheath such that its tip is at the cavoatrial junction. The wire and sheath were removed, and the catheter secured in place, and a sterile dressing was applied. Catheter was found to flush and aspirate normally. No immediate complications are identified. FLUORO TIME: 0.2 minutes DOSE AREA PRODUCT: 0.2 Gycm2 Impression: Ultrasound and fluoroscopically guided placement of a right upper extremity PICC line.
[2020-07-04] MEDS: HEPARIN for SUB-Q USE 5,000 UNIT/ML VIAL. SQ SCH (14:17)
--- NOTE | 2020-07-04 14:17 | SNU/HH DC ---
DISCHARGE ORDERS DISCHARGE INFORMATION: DISCHARGE DATE: Jul 04, 2020 FINAL DIAGNOSIS Problems Medical Problems: (1) Alzheimer's dementia Status: Acute (2) Anemia Status: Acute (3) CKD (chronic kidney disease) Status: Acute (4) Hypernatremia Status: Acute (5) PEG tube malfunction Status: Acute CONDITION ON DISCHARGE: Stable CODE STATUS: Code Status: Full SENIOR LIVING: SNF STAY <30 DAYS: Yes POST DISCHARGE ORDERS: ACTIVITY ORDERS: Activity as tolerated WEIGHT BEARING STATUS: As tolerated DIET AFTER DISCHARGE: NPO (TPN per pharmacy for 1 month until PEG tube can be placed) WOUND/INCISION CARE: Keep wound/cast CDI, Change dressing, Other, see below CHECKS AFTER DISCHARGE: CHECKS AFTER DISCHARGE: Check blood press - daily, Check blood sugar, ac/hs, Check your Temp as needed, Weigh Yourself Daily FOLLOW-UP: LAB ORDERS FOR FOLLOW-UP: CMP + Magnesium weekly TREATMENT/EQUIPMENT ORDERS: ADAPTIVE EQUIPMENT NEEDED: None Physical Therapy For: Evalulation/Treatment Occupational Therapy For: Evaluation/Treatment Speech Language Pathology For: Evaluation/Treatment DISCHARGE MEDICATIONS: Home Meds Active Scripts [Acetaminophen] 500 MG TABLET No Conflict Check, 500 MG PO PRN Q6HRS PRN for PAIN / TEMP Prov:MARIE COON MD 02/07/15 Carvedilol (COREG ) 6.25 Mg Tablet, 6.25 MG PO BIDWMEALS, #60 Prov:MARIE COON MD 02/07/15 Reported Medications Famotidine (FAMOTIDINE) 20 Mg Tablet, 20 MG PO BIDAC for stomach acid, TAB 06/17/20 Insulin Detemir (Levemir Flextouch) 100 Unit/1 Ml Insuln.pen, 42 UNIT SQ TIDAC for hyperglycemia, SYR 06/17/20 Fluticasone Propionate (Flonase Allergy Relief) 9.9 Ml [place].susp, 2 SPRAYS NS DAILY, BOTTLE 03/28/17 Aspirin (ASPIRIN) 81 Mg Tab.chew, 1 TAB PO DAILY, #30 TAB 3 Refills 05/29/15 Atorvastatin Calcium (ATORVASTATIN CALCIUM) 80 Mg Tablet, 1 TAB PO HS, #30 TAB 5 Refills 05/29/15 Calcium Carbonate (CALCIUM) 500 Mg Tablet, 500 MG PO BID92 02/01/15 Cholecalciferol (Vitamin D3) (VITAMIN D) 2,000 Unit Capsule, 2000 UNIT PO BID94 02/01/15 Trazodone Hcl (TRAZODONE HCL) 50 Mg Tablet, 50 MG PO PRN QHS PRN for INSOMNIA, TAB 02/01/15 [place] Carbonate (LITHIUM CARBONATE) 300 Mg Tablet, 300 MG PO BID, #2 02/01/15 KALI SHARMA MD Jul 04, 2020 14:17
[2020-07-04 15:00] VITALS: BP 113/66
[2020-07-04] MEDS ORDERED: [UNRECOGNIZED DRUG - OTHER] IV SCH ×10 (22:00)
[2020-07-04] MEDS ORDERED: AMINO ACID IV SCH ×20 (22:00)
[2020-07-04] MEDS ORDERED: DEXTROSE 70% IV SCH ×20 (22:00)
[2020-07-04] MEDS ORDERED: [UNRECOGNIZED DRUG - OTHER] IV SCH ×10 (22:00)
[2020-07-04] MEDS ORDERED: TOTAL PARENTERAL NUTRITION IV SCH ×20 (22:00)
== END 2020-07-04 17:30 | DRG 393 ==
LOC: ER 12:54 → ED HOLD 16:47 → 5 NORTH 18:58
PROVIDERS: ADMIT Internal Medicine; ATTEND Internal Medicine
PROC: 02HV33Z Insertion of Infusion Device into Superior Vena Cava, Percutaneous Approach (ICD-10-PCS; 2020-06-27)
PROC: B5181ZA Fluoroscopy of Superior Vena Cava using Low Osmolar Contrast, Guidance (ICD-10-PCS; 2020-06-27)
PROC: B548ZZA Ultrasonography of Superior Vena Cava, Guidance (ICD-10-PCS; 2020-06-27)
PROC: 02HV33Z Insertion of Infusion Device into Superior Vena Cava, Percutaneous Approach (ICD-10-PCS; principal; 2020-07-04)
PROC: B5181ZA Fluoroscopy of Superior Vena Cava using Low Osmolar Contrast, Guidance (ICD-10-PCS; 2020-07-04)
PROC: B548ZZA Ultrasonography of Superior Vena Cava, Guidance (ICD-10-PCS; 2020-07-04)
DX: K94.23 Gastrostomy malfunction (principal); G93.41 Metabolic encephalopathy; E43 Unspecified severe protein-calorie malnutrition; N17.9 Acute kidney failure, unspecified; E87.0 Hyperosmolality and hypernatremia; E87.3 Alkalosis; D64.9 Anemia, unspecified; D69.6 Thrombocytopenia, unspecified; E11.22 Type 2 diabetes mellitus with diabetic chronic kidney disease; E11.65 Type 2 diabetes mellitus with hyperglycemia; E78.00 Pure hypercholesterolemia, unspecified; E78.5 Hyperlipidemia, unspecified; E86.9 Volume depletion, unspecified; F02.80 Dementia in other diseases classified elsewhere, unspecified severity, without behavioral disturbance, psychotic disturbance, mood disturbance, and anxiety; F31.9 Bipolar disorder, unspecified; F43.10 Post-traumatic stress disorder, unspecified; G30.9 Alzheimer's disease, unspecified; I12.9 Hypertensive chronic kidney disease with stage 1 through stage 4 chronic kidney disease, or unspecified chronic kidney disease; I25.10 Atherosclerotic heart disease of native coronary artery without angina pectoris; J44.9 Chronic obstructive pulmonary disease, unspecified; K57.90 Diverticulosis of intestine, part unspecified, without perforation or abscess without bleeding; N18.3 Chronic kidney disease, stage 3 (moderate); R13.10 Dysphagia, unspecified; W06.XXXA Fall from bed, initial encounter; Z82.49 Family history of ischemic heart disease and other diseases of the circulatory system; Z87.891 Personal history of nicotine dependence; Z95.1 Presence of aortocoronary bypass graft; K21.9 Gastro-esophageal reflux disease without esophagitis; M19.90 Unspecified osteoarthritis, unspecified site; Z20.828 Contact with and (suspected) exposure to other viral communicable diseases
CPT/HCPCS: 36415; 36573; 70450; 71045; 74176; 77001; 80048; 80053; 81001; 82436; 82550; 82962; 83605; 83735; 83935; 84100; 84133; 84300; 84478; 84484; 85025; 87040; 87086; 87426; 93005; 96365; 96375; 96376; 99285; C1751; C1892; C9113; J0610; J1644; J1815; J2543; J3475; J3490; J7042; J7060; 97110-GP; 97530-GO; 97530-GP; 97535-GO; G0378; U0003-CS

== ENCOUNTER 2020-08-01 06:19 | Day surgery (SDC) | payer BC ==
[~2020-08-01] VITALS: Ht 193 cm; Wt 101.2 kg
[~2020-08-01 06:19] MED LIST changes: +INSU100I13 SQ; +INSU100V31 SQ; +cefOXitin SODIUM IV Push 2 GM VIAL. IVP PRN
[2020-08-01] MEDS ORDERED: PROPOFOL 10 MG/ML (20ML) VIAL. IV ONE (06:59)
[2020-08-01] MEDS ORDERED: LIDOCAINE 2% PF 5 ML VIAL. ONE (06:59)
[2020-08-01] MEDS ORDERED: MORPHINE SULFATE 2 MG/ML VIAL. IV PRN (07:00)
[2020-08-01] MEDS ORDERED: fentaNYL PF VIAL 100 MCG/2 ML VIAL IV PRN ×2 (07:00)
[2020-08-01] MEDS ORDERED: ROCURONIUM 50 MG/5 ML VIAL. ONE (07:00)
[2020-08-01] MEDS ORDERED: ONDANSETRON PF 4 MG/2 ML VIAL. IV PRN (07:00)
[2020-08-01] MEDS ORDERED: PROCHLORPERAZINE 10 MG/2 ML VIAL. IV PRN (07:00)
[2020-08-01] MEDS ORDERED: HYDROmorphone 2 MG/ML VIAL IV PRN (07:00)
[2020-08-01] MEDS ORDERED: BUPIVACAINE MPF 0.5% 30 ML VIAL. ONE (07:05)
[2020-08-01] MEDS ORDERED: BUPIVACAINE-EPI 0.5%-1:200000 MPF 30 ML VIAL. ONE (07:07)
[2020-08-01] MEDS ORDERED: IV RINGERS,LACTATED 1000ML 1,000 ML IV SCH (07:15)
[2020-08-01] MEDS ORDERED: INSULIN LISPRO 100 UNIT/ML 3ML VIAL for OP,RR ONLY. SQ PRN (07:15)
[2020-08-01 07:24] LABS: CALCIUM 9.3 mg/dL (8.5-10.1); CREATININE 2.1 mg/dL (0.7-1.3); GFR 37.5; POTASSIUM 4.5 mmol/L (3.5-5.1)
[2020-08-01] MEDS ORDERED: ONDANSETRON PF 4 MG/2 ML VIAL. ONE (07:32)
[2020-08-01] MEDS ORDERED: fentaNYL PF VIAL 100 MCG/2 ML VIAL ONE (07:32)
[2020-08-01] MEDS ORDERED: SUCCINYLCHOLINE 200 MG/10 ML VIAL. ONE (07:32)
[2020-08-01] MEDS ORDERED: DEXAMETHASONE SOD PHOS 4 MG/ML VIAL ONE (07:32)
[2020-08-01] MEDS ORDERED: INSULIN LISPRO 100 UNIT/ML 3ML VIAL for OP,RR ONLY. SQ ONE (07:40)
--- NOTE | 2020-08-01 09:14 | PDOC1 ---
History and Physical Date of Admission Date of Admission DATE: 08/01/20 TIME: 09:10 Identification/Chief Complaint Chief Complaint Need for enteral access Source Source: Caregiver, Chart review History of Present Illness History of Present Illness 74 yo M with hx of PEG, however, was dislodged and unable to be replaced. Pt has been treated with TPN and bowel rest with healing of site. Pt is alert but not interactive. Accompanied by supportive and daughter. Past Medical History Cardiovascular: CAD, HTN, PR, Hyperlipidemia, Other Pulmonary: COPD CENTRAL NERVOUS SYSTEM: Dementia GI: Diverticulosis, GERD Heme/Onc: No pertinent hx Hepatobiliary: No pertinent hx Psych: Bipolar, Other Musculoskeletal: Osteoarthritis Rheumatologic: No pertinent hx Infectious disease: No pertinent hx Renal/: Chronic renal insuff Endocrine: No pertinent hx Past Surgical History Past Surgical History: CABG, Other Family History Family History: Hypertension, Family History Unknown Social History Smoke: No Current Medications Current Medications Current Medications Ondansetron HCl (Zofran) 4 mg PRN Q6HRS PRN IV NAUSEA/VOMITING; Start 08/01/20 at 07:00; Stop 08/02/20 at 06:59 Fentanyl Citrate (Fentanyl 2ml Vial) 25 mcg PRN Q5MIN PRN IV MILD PAIN 1-3; Start 08/01/20 at 07:00; Stop 08/02/20 at 06:59 Fentanyl Citrate (Fentanyl 2ml Vial) 50 mcg PRN Q5MIN PRN IV MODERATE TO SEVERE PAIN; Start 08/01/20 at 07:00; Stop 08/02/20 at 06:59 Morphine Sulfate (Morphine Sulfate) 1 mg PRN Q10MIN PRN IV SEVERE PAIN 7-10; Start 08/01/20 at 07:00; Stop 08/02/20 at 06:59 Hydromorphone HCl (Dilaudid) 0.5 mg PRN Q10MIN PRN IV SEV PAIN, Second choice; Start 08/01/20 at 07:00; Stop 08/02/20 at 06:59 Prochlorperazine Edisylate (Compazine) 5 mg PACU PRN PRN IV NAUSEA, MRX1; Start 08/01/20 at 07:00; Stop 08/02/20 at 06:59 Cefoxitin Sodium (Mefoxin) 2 gm OC PROC PRN IVP PRE-OP; Start 08/01/20 at 06:00; Stop 08/01/20 at 18:00 Propofol (Diprivan) 200 mg STK-MED ONCE IV ; Start 08/01/20 at 06:59; Stop 08/01/20 at 07:00; Status DC Lidocaine HCl (Lidocaine Pf 2% Vial) 5 ml STK-MED ONCE .ROUTE ; Start 08/01/20 at 06:59; Stop 08/01/20 at 07:00; Status DC Rocuronium [place] (Zemuron) 50 mg STK-MED ONCE .ROUTE ; Start 08/01/20 at 07:00; Stop 08/01/20 at 07:01; Status DC Bupivacaine HCl (Sensorcaine Mpf 0.5%) 30 ml STK-MED ONCE .ROUTE ; Start 08/01/20 at 07:05; Stop 08/01/20 at 07:06; Status DC Bupivacaine HCl/ Epinephrine Bitart (Sensorcain-Epi 0.5%-1:504164 Mpf) 30 ml STK-MED ONCE .ROUTE ; Start 08/01/20 at 07:07; Stop 08/01/20 at 07:07; Status DC Insulin Human Lispro (HumaLOG VIAL for OP,RR ONLY) 0-10 units PRN Q1HR PRN SQ PER PROTOCOL Last administered on 08/01/20at 07:34; Start 08/01/20 at 07:15; Stop 08/02/20 at 07:14 Ringer's Solution 1,000 ml @ 75 mls/hr [id number] IV Last administered on 08/01/20at 07:31; Start 08/01/20 at 07:15 Ondansetron HCl (Zofran) 4 mg STK-MED ONCE .ROUTE ; Start 08/01/20 at 07:32; Stop 08/01/20 at 07:32; Status DC Dexamethasone Sodium Phosphate (Decadron) 4 mg STK-MED ONCE .ROUTE ; Start 08/01/20 at 07:32; Stop 08/01/20 at 07:32; Status DC Succinylcholine Chloride (Anectine) 200 mg STK-MED ONCE .ROUTE ; Start 08/01/20 at 07:32; Stop 08/01/20 at 07:33; Status DC Fentanyl Citrate (Fentanyl 2ml Vial) 100 mcg STK-MED ONCE .ROUTE ; Start 08/01/20 at 07:32; Stop 08/01/20 at 07:33; Status DC Active Scripts Active Reported Novolog (Insulin Aspart) 100 Unit/1 Ml Vial 100 Unit SQ SSI Lantus Solostar (Insulin Glargine,Hum.rec.anlog) 100 Unit/1 Ml Insuln.pen 40 Unit SQ BID Allergies Allergies: Coded Allergies: No Known Drug Allergies (Unverified , 08/01/20) ROS Review of System unobtainable Physical Exam General: Alert, No acute distress HEENT: Atraumatic Lungs: Normal air movement, Other (well healed sternal incision) Abdomen: Soft, No tenderness, Other (well healed multiple scars LUQ, completely healed site) Rectal Exam: not examined Skin: No rashes, No breakdown Vitals Vitals Vital Signs Date Time Temp Pulse Resp B/P (MAP) Pulse Ox O2 Delivery O2 Flow Rate FiO2 08/01/20 07:04 98.1 80 20 129/83 97 Room Air 98.1 Labs Labs Laboratory Tests Test 08/01/20 06:48 08/01/20 06:50 Glucose (Fingerstick) 125 mg/dL (70-99) Sodium Level 148 mmol/L (136-145) Potassium Level 4.5 mmol/L (3.5-5.1) Chloride Level 113 mmol/L (98-107) Carbon Dioxide Level 26 mmol/L (21-32) Anion Gap 9 (6-14) Blood Urea Nitrogen 37 mg/dL (8-26) Creatinine 2.1 mg/dL (0.7-1.3) Estimated GFR (Cockcroft-Gault) 37.5 Glucose Level 131 mg/dL (70-99) Calcium Level 9.3 mg/dL (8.5-10.1) Laboratory Tests Test 08/01/20 06:48 08/01/20 06:50 Glucose (Fingerstick) 125 mg/dL (70-99) Sodium Level 148 mmol/L (136-145) Potassium Level 4.5 mmol/L (3.5-5.1) Chloride Level 113 mmol/L (98-107) Carbon Dioxide Level 26 mmol/L (21-32) Anion Gap 9 (6-14) Blood Urea Nitrogen 37 mg/dL (8-26) Creatinine 2.1 mg/dL (0.7-1.3) Estimated GFR (Cockcroft-Gault) 37.5 Glucose Level 131 mg/dL (70-99) Calcium Level 9.3 mg/dL (8.5-10.1) VTE Prophylaxis Ordered VTE Prophylaxis Devices: Yes VTE Pharmacological Prophylaxi: Yes Assessment/Plan Assessment/Plan Need for enteral access TO OR for laparoscopic versus open replacement of gastrostomy tube R/R/B/A d/w pt and pt's supportive family. Risks, including, but not limited to: bleeding, infection, damage to surrounding structures, risk of anesthesia, risk of open. They appear to understand, their questions are answered and they elect to proceed. Justifications for Admission Other Justification YOHANA BRANHAM MD Aug 01, 2020 09:14
[2020-08-01] MEDS ORDERED: PHENYLEPHRINE in 0.9% NACL PF 1 MG/10 ML SYRINGE. IV ONE (09:42)
[2020-08-01] MEDS ORDERED: NEOSTIGMINE METHYLSULFATE 5 MG/5 ML SYRINGE. ONE (09:46)
[2020-08-01] MEDS ORDERED: GLYCOPYRROLATE 1 MG/5 ML VIAL. ONE (09:51)
[2020-08-01] MEDS ORDERED: SEVOFLURANE 31 TO 60 MINUTES. IH ONE (09:51)
--- NOTE | 2020-08-01 10:05 | PDOC4 ---
OPERATIVE NOTE Date: Date: Aug 01, 2020 Pre-Op Diagnosis: Need for enteral access Post-Op Diagnosis: same Procedure Performed: laparoscopic gastrostomy tube placement Surgeon: Luis Alfredo Branham Anesthesia Type: GETA plus local Blood Loss: 50 Specimans Obtained: none Findings: normal anatomy, adherent stomach, no gastrocutaneous fistula Complications: none Operative Note: After obtaining informed consent, patient was taken to OR, induced under GETA and prepped in the usual fashion. 5 mm ports placed RLQ and RUQ under laparoscopic guidance. Abdominal cavity was explored and noted as above. LUQ skin explored and no fistula identified. Incision was created. Endoshears used to created gastrotomy. 0 vicryl placed through gastrotomy. 20 F Gastrostomy placed into stomach under direct vision. Balloon inflated. 0 vicryl used to help bring stomach into opposition to the abdominal wall. [place] was used to blow air into stomach demonstrating patency and proper position without leak. Ports removed without bleeding. Skin repaired with 4 0 monocryl. G-tube secured with 2 0 nylon. Dressing placed. Patient tolerated procedure well and was sent to PACU in stable condition. All counts correct. Wound class is 3. YOHANA BRANHAM MD Aug 01, 2020 10:05
[2020-08-01] MEDS ORDERED: DEXTROSE 50% 25 GM / 50ML DISP.SYRIN. IV ONE ×3 (10:10→11:15)
[2020-08-01 11:16] VITALS: BP 137/71
== END 2020-08-01 12:53 | disposition home or self-care (01) ==
LOC: SURG 06:19
PROVIDERS: ATTEND Surgery
DX: Z43.1 Encounter for attention to gastrostomy (principal); I25.10 Atherosclerotic heart disease of native coronary artery without angina pectoris; I12.9 Hypertensive chronic kidney disease with stage 1 through stage 4 chronic kidney disease, or unspecified chronic kidney disease; N18.9 Chronic kidney disease, unspecified; E11.22 Type 2 diabetes mellitus with diabetic chronic kidney disease; E78.5 Hyperlipidemia, unspecified; J44.9 Chronic obstructive pulmonary disease, unspecified; K21.9 Gastro-esophageal reflux disease without esophagitis; Z82.49 Family history of ischemic heart disease and other diseases of the circulatory system; Z79.899 Other long term (current) drug therapy
CPT/HCPCS: 36415; 43246; 80048; 82962; A7015; J0330; J0694; J1100; J1815; J2370; J2405; J2704; J2710; J3010; J3490